=== PATIENT | female | born 1955 | race Caucasian/White ===

== ENCOUNTER 2018-10-02 14:53 | Emergency (ER) | payer SELFPAY ==
[2018-10-02 15:18] LABS: ABSOLUTE BASOPHILS # (AUTO) 0.1 10^3/uL (0.0-0.2); ABSOLUTE EOSINOPHILS # (AUTO) 0.2 10^3/uL (0.0-0.6); ABSOLUTE LYMPHOCYTES (AUTO) 1.4 10^3/uL (0.5-4.7); ABSOLUTE MONOCYTES (AUTO) 0.6 10^3/uL (0.1-1.4); ABSOLUTE NEUT (AUTO) 5.1 10^3/uL (1.7-8.2); EOSINOPHILS % (AUTO) 2.4 % (0-6); HEMOGLOBIN 14.5 g/dL (12.0-15.5); LYMPHOCYTES % (AUTO) 19.1 % (13-45); MEAN CORPUSCULAR HEMOGLOBIN 31.5 pg (27.0-33.4); MEAN CORPUSCULAR HGB CONC 34.5 g/dL (32.0-36.0); MEAN CORPUSCULAR VOLUME 91 fl (80-97); MONOCYTES % (AUTO) 7.8 % (3-13); PLATELET COUNT 257 10^3/uL (150-450); RED BLOOD COUNT 4.61 10^6/uL (3.72-5.28); RED CELL DISTRIBUTION WIDTH 13.1 % (11.5-14.0); SEGMENTED NEUTROPHILS % (AUTO) 69.7 % (42-78); TOTAL CELLS COUNTED % (AUTO) 100 %; WHITE BLOOD COUNT 7.3 10^3/uL (4.0-10.5)
[2018-10-02 15:32] LABS: ALANINE AMINOTRANSFERASE 25 U/L (9-52); ALBUMIN 4.3 g/dL (3.5-5.0); ALKALINE PHOSPHATASE 96 U/L (38-126); ANION GAP 12 (5-19); ASPARTATE AMINO TRANSFERASE 25 U/L (14-36); BILIRUBIN,DIRECT 0.4 mg/dL (0.0-0.4); BLOOD UREA NITROGEN 12 mg/dL (7-20); CALCIUM 10.1 mg/dL (8.4-10.2); CARBON DIOXIDE 25 mmol/L (22-30); CHLORIDE 104 mmol/L (98-107); CREATINE KINASE 43 U/L (30-135); GLUCOSE 115 mg/dL (75-110); SODIUM 141.3 mmol/L (137-145); TOTAL PROTEIN 7.7 g/dL (6.3-8.2)
[2018-10-02 15:35] LABS: POTASSIUM 3.2 mmol/L (3.6-5.0)
[2018-10-02 15:45] LABS: TROPONIN I < 0.012 ng/mL
--- NOTE | 2018-10-02 15:46 | RADIOLOGY REPORT (SQ) ---
EXAM DESCRIPTION: CT HEAD WITHOUT COMPLETED DATE/TIME: 10/02/2018 3:28 pm REASON FOR STUDY: slurred speech COMPARISON: None. TECHNIQUE: Axial images acquired through the brain without intravenous contrast. Images reviewed wi th bone, brain and subdural windows. Images stored on PACS. All CT scanners at this facility use dose modulation, iterative reconstruction, and/or weight based d osing when appropriate to reduce radiation dose to as low as reasonably achievable (ALARA). [facility]: Dose Right [facility]: CareDose [facility]: Dose Right [facility]: Teradose 4D [facility]: Smart Mark[employer] RADIATION DOSE: CT Rad equipment meets quality standard of care and radiation dose reduction techniq ues were employed. CTDIvol: 53.2 mGy. DLP: 1017 mGy-cm.mGy. LIMITATIONS: None. FINDINGS: VENTRICLES: Prominent. CEREBRUM: No mass effect. No hemorrhage. No midline shift. Areas of low density in the white matte r most likely due to chronic micro-vascular ischemic change. No evidence for acute territorial infar ction. CEREBELLUM: No hemorrhage. No alteration of density. No evidence for acute infarction. EXTRAAXIAL SPACES: Age-related involutional change. No fluid collections. ORBITS AND GLOBE: Symmetrical contour of the globes. CALVARIUM: No depressed fracture. PARANASAL SINUSES: No air-fluid level. SOFT TISSUES: No hematoma. IMPRESSION: No acute intracranial hemorrhage or acute territorial infarct. Chronic changes of atrop hy and microvascular ischemia. EVIDENCE OF ACUTE STROKE: NO. TECHNICAL DOCUMENTATION: JOB ID: [id number] [facility] Quality ID # [id number]: Final reports with documentation of one or more dose reduction techniques (e.g., Au tomated exposure control, adjustment of the mA and/or kV according to patient size, use of iterative reconstruction technique) 2010 [employer]- All Rights Reserved Reading location - IP/workstation name: [email or web address]
--- NOTE | 2018-10-02 15:59 | RADIOLOGY REPORT (SQ) ---
EXAM DESCRIPTION: CHEST SINGLE VIEW COMPLETED DATE/TIME: 10/02/2018 3:31 pm REASON FOR STUDY: chest pain COMPARISON: None. NUMBER OF VIEWS: One view. TECHNIQUE: Single frontal radiographic view of the chest acquired. LIMITATIONS: None. FINDINGS: LUNGS AND PLEURA: No opacities, masses or pneumothorax. No pleural effusion. Attenuated bl ood vessels and flattened marcella-diaphragms. MEDIASTINUM AND HILAR STRUCTURES: No masses. Contour normal. HEART AND VASCULAR STRUCTURES: Heart normal in size. Normal vasculature. BONES: No acute findings. HARDWARE: None in the chest. OTHER: No other significant finding. IMPRESSION: COPD. NO ACUTE RADIOGRAPHIC FINDING IN THE CHEST. TECHNICAL DOCUMENTATION: JOB ID: [id number] [employer]- All Rights Reserved Reading location - IP/workstation name: [email or web address]
[2018-10-02] MEDS ORDERED: POTASSIUM CHLORIDE 20 MEQ PACKET PO ONE (17:48)
[2018-10-02 17:58] LABS: APPEARANCE,URINE SLIGHTLY-CLOUDY; BILIRUBIN,URINE NEGATIVE (NEGATIVE); COLOR,URINE AMBER; GLUCOSE, URINE NEGATIVE (NEGATIVE); KETONES,URINE TRACE mg/dL (NEGATIVE); LEUKOCYTE ESTERASE,URINE SMALL (NEGATIVE); NITRITE,URINE NEGATIVE (NEGATIVE); PROTEIN,URINE NEGATIVE (NEGATIVE); URINE SPECIFIC GRAVITY 1.019
--- NOTE | 2018-10-02 18:06 | ER Document Report ---
ED General - General Chief Complaint: Chest Pain Stated Complaint: CHEST PAIN Time Seen by Provider: 10/02/18 15:01 TRAVEL OUTSIDE OF THE [place] IN LAST 30 DAYS: No - HPI Notes: Patient is a 62-year-old female presents to the emergency department for evaluation of chest pain. She states it is and heavy. Does not radiate. She denies any associated symptoms. The only other complaint she has to me initi ally is that she is very tired. She states that the chest pain was keeping her awake so she is very sleepy. She has had some nausea associated with this as well. - Related Data Allergies/Adverse Reactions: acetaminophen [From [place]] Adverse Reaction (Verified 10/02/18 15:15) hydrocodone [From [place]] Adverse Reaction (Verified 10/02/18 15:15) Past Medical History - General Information source: Patient - Social History Smoking Status: Former Smoker Chew tobacco use (# tins/day): No Family History: Other Patient has suicidal ideation: No Patient has homicidal ideation: No - Past Medical History Cardiac Medical History: Reports: Hx Hypertension Renal/ Medical History: Denies: Hx Peritoneal Dialysis Review of Systems - Review of Systems Constitutional: Malaise EENT: No symptoms reported Cardiovascular: Chest pain Respiratory: No symptoms reported Gastrointestinal: Nausea Genitourinary: No symptoms reported Musculoskeletal: No symptoms reported Skin: No symptoms reported Neurological/Psychological: No symptoms reported Physical Exam - Vital signs Vitals: Temp Pulse Resp BP Pulse Ox 97.7 F 90 17 130/83 H 93 10/02/18 14:57 10/02/18 14:57 10/02/18 14:57 10/02/18 14:57 10/02/18 14:57 - Notes Notes: Vital signs reviewed, please refer to chart. Patient is normocephalic, atraumatic. Pupils equal round, reactive to light. Neck is supple without meningismus. Heart is regular rate and rhythm. Lungs are clear to auscultation bilaterally. Abdomen is soft, nontender, normoactive bowel sounds throughout. Extremities without cyanosis, clubbing, edema. Peripheral pulses are equal. Skin is warm and dry. Patient is drowsy but awakes easily to verbal stimuli. GCS 14. Cranial nerves II to XII are grossly intact without focal neurological deficits. Strength is plus 5 out of 5 bilateral upper and lower extremities. Sensation is intact. Intact finger nose finger, rapid altering movements, [id number]. Course - Re-evaluation Re-evalutation: 10/02/18 18:07 Patient presents to the emergency department for evaluation of chest pain. Upon initial evaluation she was extremely drowsy. She had no focal neurological deficits, but was slow to answer questions. Because of this, I did order a CT scan of the head, urinalysis, urine drug screen. She also had an entire cardiac workup. Laboratory investigations, EKG, imaging were all unremarkable. I went back into reassess the patient. At that time she was awake and alert. She had no complaints. She stated only "I am hungry." I did order oral potassium replacement, her magnesium was within normal limits. Patient is permitted to eat, tox screen pending. 10/02/18 18:26 Patient remains completely asymptomatic. Her tox screen is negative. I explained to her that given the duration of her pain and her negative cardiac workup here, I could effectively rule out acute coronary syndrome. Unfortunately I cannot rule out any sort of presence of coronary artery disease, and she does require follow-up with her primary care physician for further testing. She voiced understanding to this and plans to follow-up this week. She is to return to the emergency department with worsening or new concerning symptoms of any sort. - Vital Signs Vital signs: Temp Pulse Resp BP Pulse Ox 97.7 F 90 17 130/83 H 93 10/02/18 14:57 10/02/18 14:57 10/02/18 14:57 10/02/18 14:57 10/02/18 14:57 - Laboratory Result Diagrams: 10/02/18 15:02 10/02/18 15:02 Laboratory results interpreted by me: 10/02/18 10/02/18 15:02 16:07 Potassium 3.2 L Glucose 115 H Urine Ketones TRACE H Urine Urobilinogen 2.0 H Ur Leukocyte Esterase SMALL H - Diagnostic Test Radiology reviewed: Reports reviewed - Head CT and chest x-ray negative for any acute process per radiology - EKG Interpretation by Me Additional EKG results interpreted by me: 10/02/18 18:08 Sinus mechanism with a rate of 91 bpm. Normal axis. Prolonged QT interval. No acute ST-T wave changes concerning for ischemia or infarction. No old studies for comparison. Discharge - Discharge Clinical Impression: Hypokalemia Chest pain Qualifiers: Chest pain type: unspecified Qualified Code(s): R07.9 - Chest pain, unspecified Condition: Stable Disposition: HOME, SELF-CARE Instructions: Chest Pain of Unclear Cause ([facility]) Additional Instructions: Follow-up with your doctor this week. Return to the emergency department with worsening or new concerning symptoms of any sort.
[2018-10-02 18:07] LABS: URINE AMPHETAMINES SCREEN NEGATIVE; URINE BARBITURATES SCREEN NEGATIVE; URINE BENZODIAZEPINES SCREEN NEGATIVE; URINE COCAINE SCREEN NEGATIVE; URINE MARIJUANA (THC) SCREEN NEGATIVE; URINE METHADONE SCREEN NEGATIVE; URINE PHENCYCLIDINE SCREEN NEGATIVE
[2018-10-02 19:11] VITALS: BP 141/69
--- NOTE | 2018-10-02 23:47 | EKG REPORT ---
SEVERITY:- ABNORMAL ECG - SINUS RHYTHM PROBABLE LEFT ATRIAL ABNORMALITY PROBABLE LEFT VENTRICULAR HYPERTROPHY BORDERLINE PROLONGED QT INTERVAL : Confirmed by: Gala Garvey 02-Oct-2018 23:47:23
== END 2018-10-02 19:11 | disposition home or self-care (01) ==
LOC: ER 14:53
DX: R07.9 Chest pain, unspecified (principal); E87.6 Hypokalemia; R11.0 Nausea; Z87.891 Personal history of nicotine dependence
CPT/HCPCS: 93005; 99284; 36415; 82553; 82550; 83735; 85025; 80053; 81001; 84484; 80307; 71045; 70450; 93010; J3490

== ENCOUNTER 2018-10-05 23:13 | Emergency (ER) | payer SELFPAY ==
--- NOTE | 2018-10-06 01:15 | ER Document Report ---
ED Medical Screen (RME) - General Chief Complaint: Shortness Of Breath Stated Complaint: SHORTNESS OF BREATH Time Seen by Provider: 10/06/18 01:04 Mode of Arrival: Wheelchair Information source: Patient Notes: Patient is a frail-appearing 62-year-old female comes to the emergency room again for complaint of difficulty breathing, breathing getting shallow, heart palpitations, breathing shortness of breath coughing but nonproductive. Patient was just seen here on 10/02/2018 admitted with a diagnosis of hypertension urgency. She was discharged on the . Patient continues to smoke at least a pack of cigarettes a day. She denies any heart problems in the past. She denies having any chest pain. TRAVEL OUTSIDE OF THE [place] IN LAST 30 DAYS: No - HPI Onset: This morning Onset/Duration: Gradual, Persistent, Worse Quality of pain: Sharp, Stabbing, Throbbing Pain Level: 3 Associated Symptoms: Cough (nonproductive), Nausea, Shortness of breath. denies: Fever Exacerbated by: Denies Relieved by: Denies Similar symptoms previously: Yes Recently seen / treated by doctor: Yes - Related Data Smoking: Greater than 1 pack/day Frequency of alcohol use: Rare Drug Abuse: None Allergies/Adverse Reactions: acetaminophen [From [place]] Adverse Reaction (Verified 10/02/18 15:15) hydrocodone [From [place]] Adverse Reaction (Verified 10/02/18 15:15) Past Medical History - General Information source: Patient - Social History Cigarette use (# per day): Yes - 1 pack/day Frequency of alcohol use: Rare Drug Abuse: None Lives with: Alone Family history: Reviewed & Not Pertinent - Past Medical History Cardiac Medical History: Reports: Hx Hypertension Renal/ Medical History: Denies: Hx Peritoneal Dialysis Psychiatric Medical History: Denies: Hx Depression Review of Systems - Review of Systems Constitutional: No symptoms reported EENT: No symptoms reported Cardiovascular: Lightheaded Respiratory: See HPI, Short of breath Gastrointestinal: No symptoms reported Genitourinary: No symptoms reported Female Genitourinary: No symptoms reported Musculoskeletal: No symptoms reported Skin: No symptoms reported Hematologic/Lymphatic: No symptoms reported Neurological/Psychological: No symptoms reported -: Yes All other systems reviewed and negative Physical Exam - Vital signs Notes: Vital signs were not captured but on the patient's triage note she had a temp of 98.1, pulse of 83, respiratory rate of 16, O2 saturation 95% on room air, and blood pressure 137/70. - Notes Notes: PHYSICAL EXAMINATION: GENERAL: Patient is a frail-appearing 62-year-old female who is in no apparent distress on for exam today however does appear a little uncomfortable. HEAD: Head is normocephalic atraumatic EYES: Pupils equal round and reactive to light, extraocular movements intact, conjunctiva are normal. ENT: Examination head and upper airway showed nasal mucosa to be mildly erythematous and edematous with some rhinorrhea noted. Lateral nasal congestion is also noted. Bilateral TMs bulging slightly but no air-fluid levels are noted. Posterior pharynx shows some mild erythema but drainage is minimal no color to it. Airway is patent. NECK: Normal range of motion, supple without lymphadenopathy LUNGS: Auscultation patient's lung goel show she has bilateral breath sounds although patient is not very cooperative when taking a deep breath so it is hard to hear and distinguish any abnormal breath sounds. HEART: Regular rate and rhythm without murmurs ABDOMEN: Soft, nontender, nondistended abdomen. No guarding, no rebound. No masses appreciated. Female : deferred Musculoskeletal: Normal range of motion, no pitting or edema. No cyanosis. NEUROLOGICAL: Normal speech, normal gait. Normal sensory, motor exams PSYCH: Normal mood, normal affect. SKIN: Warm, Dry, normal turgor, no rashes or lesions noted. Course - Re-evaluation Re-evalutation: 10/06/18 01:15 I have greeted and performed a rapid initial assessment of this patient. A comprehensive ED assessment and evaluation of the patient, analysis of test results and completion of the medical decision making process will be conducted by additional ED providers. Dictation of this chart was performed using voice recognition software; therefore, there may be some unintended grammatical errors.
[2018-10-06 02:17] LABS: ABSOLUTE BASOPHILS # (AUTO) 0.1 10^3/uL (0.0-0.2); ABSOLUTE EOSINOPHILS # (AUTO) 0.3 10^3/uL (0.0-0.6); ABSOLUTE LYMPHOCYTES (AUTO) 2.2 10^3/uL (0.5-4.7); ABSOLUTE MONOCYTES (AUTO) 0.7 10^3/uL (0.1-1.4); ABSOLUTE NEUT (AUTO) 4.6 10^3/uL (1.7-8.2); BASOPHILS % (AUTO) 1.1 % (0-2); EOSINOPHILS % (AUTO) 3.6 % (0-6); HEMATOCRIT 40.9 % (36.0-47.0); LYMPHOCYTES % (AUTO) 27.6 % (13-45); MEAN CORPUSCULAR HEMOGLOBIN 31.5 pg (27.0-33.4); MEAN CORPUSCULAR HGB CONC 34.2 g/dL (32.0-36.0); MEAN CORPUSCULAR VOLUME 92 fl (80-97); MONOCYTES % (AUTO) 9.3 % (3-13); PLATELET COUNT 225 10^3/uL (150-450); RED BLOOD COUNT 4.44 10^6/uL (3.72-5.28); RED CELL DISTRIBUTION WIDTH 12.7 % (11.5-14.0); SEGMENTED NEUTROPHILS % (AUTO) 58.4 % (42-78); TOTAL CELLS COUNTED % (AUTO) 100 %; WHITE BLOOD COUNT 7.8 10^3/uL (4.0-10.5)
[2018-10-06 02:21] LABS: INTERNATIONAL RATION (INR) 1.04; PROTHROMBIN TIME 14.1 SEC (11.4-15.4)
[2018-10-06 02:27] LABS: ALANINE AMINOTRANSFERASE 14 U/L (9-52); ALKALINE PHOSPHATASE 88 U/L (38-126); ANION GAP 11 (5-19); ASPARTATE AMINO TRANSFERASE 17 U/L (14-36); BILIRUBIN,DIRECT 0.3 mg/dL (0.0-0.4); BILIRUBIN,TOTAL 0.5 mg/dL (0.2-1.3); BLOOD UREA NITROGEN 7 mg/dL (7-20); CALCIUM 9.5 mg/dL (8.4-10.2); CARBON DIOXIDE 27 mmol/L (22-30); CHLORIDE 103 mmol/L (98-107); CREATINE KINASE 37 U/L (30-135); GLUCOSE 80 mg/dL (75-110); POTASSIUM 3.3 mmol/L (3.6-5.0); SODIUM 140.7 mmol/L (137-145); TOTAL PROTEIN 7.3 g/dL (6.3-8.2)
[2018-10-06 02:42] LABS: CREATINE KINASE MB 0.63 ng/mL (<4.55)
[2018-10-06 02:43] LABS: TROPONIN I < 0.012 ng/mL
[2018-10-06] MEDS ORDERED: IPRATROPIUM/ALBUTEROL 0.5-2.5 MG/3 ML AMPUL NEB ONE (02:45)
--- NOTE | 2018-10-06 02:45 | ER Document Report ---
ED Respiratory Problem - General Chief Complaint: Shortness Of Breath Stated Complaint: SHORTNESS OF BREATH Time Seen by Provider: 10/06/18 01:04 Mode of Arrival: Wheelchair Information source: Patient Notes: Patient is a frail-appearing 62-year-old female comes to emergency room with complaint of difficulty breathing. Patient states that over the past couple days her breathing is gotten shallow she has had increasing shortness of breath she has had some palpitations but she has no history of heart problems. Patient was seen here on the of this month was admitted overnight through the and just discharged out. She was here for hypertensive emergency. She states she has not felt good even before that point. She came in by EMS and was put on the triage room. Patient continues to smoke a pack of cigarettes a day. She denies any other medical problems at this time. She has no heart condition she has no abdominal pain no nausea or vomiting no cardiac chest pain. Just more shortness of breath with palpitations TRAVEL OUTSIDE OF THE [place] IN LAST 30 DAYS: No - HPI Patient complains to provider of: Cough, Hurts to breath, Short of breath Onset: Yesterday Duration: Continuous, Worse/persistent Initiating Event: Allergy, Exertion Quality of pain: No pain Severity: None Pain Level: Denies Context: Hx CHF, Smoker. denies: Recent cardiac event, Recent foreign travel, Recent immobilization, Recent surgery Short of Breath: Moderate Chest pain/discomfort: Constant, Intermittent, Tightness, Worse with deep breaths Cough: Nonproductive Sputum amount: None Associated symptoms: None - Related Data Allergies/Adverse Reactions: acetaminophen [From [place]] Adverse Reaction (Verified 10/02/18 15:15) hydrocodone [From [place]] Adverse Reaction (Verified 10/02/18 15:15) Past Medical History - General Information source: Patient - Social History Smoking Status: Unknown if Ever Smoked Cigarette use (# per day): Yes - 1 pack/day Chew tobacco use (# tins/day): No Smoking Education Provided: No Frequency of alcohol use: Rare Drug Abuse: None Lives with: Alone Family History: CAD, COPD - Past Medical History Cardiac Medical History: Reports: Hx Hypertension Renal/ Medical History: Denies: Hx Peritoneal Dialysis Psychiatric Medical History: Denies: Hx Depression Review of Systems - Review of Systems Constitutional: No symptoms reported EENT: No symptoms reported Cardiovascular: No symptoms reported Respiratory: See HPI, Cough, Short of breath, Sputum Gastrointestinal: No symptoms reported Genitourinary: No symptoms reported Female Genitourinary: No symptoms reported Musculoskeletal: No symptoms reported Skin: No symptoms reported Hematologic/Lymphatic: No symptoms reported Neurological/Psychological: No symptoms reported -: Yes All other systems reviewed and negative Physical Exam - Vital signs Vitals: BP Pulse Ox 172/58 H 98 10/06/18 01:57 10/06/18 01:57 Interpretation: Hypertensive - Patient's vital signs were not captured however on her triage note time of 2340 patient's temp was 98.1 her respiratory rate was 16 the pulse rate was 83 her blood pressure 137/70 and her O2 sat was 95%. - Notes Notes: PHYSICAL EXAMINATION: GENERAL: Patient is a frail-appearing 62-year-old female who is in no apparent distress on physical exam today. HEAD: Atraumatic, normocephalic. EYES: Pupils equal round and reactive to light, extraocular movements intact, conjunctiva are normal. ENT: Examination head and upper airway showed nasal mucosa to be mildly erythematous and edematous with some rhinorrhea noted. Bilateral nasal congestion is also noted. Bilateral TMs are bulging with no air-fluid levels. Posterior pharynx shows some mild erythema with no exudate noted and uvula midli ne with no encroachment. There was patent. NECK: Normal range of motion, supple without lymphadenopathy LUNGS: Patient displays bilateral breath sounds breath sounds are decreased throughout the patient's not making very determine inspiratory effort. HEART: Regular rate and rhythm without murmurs ABDOMEN: Soft, nontender, nondistended abdomen. No guarding, no rebound. No masses appreciated. Female : deferred Musculoskeletal: Normal range of motion, no pitting or edema. No cyanosis. NEUROLOGICAL: Normal speech, normal gait. Normal sensory, motor exams PSYCH: Normal mood, normal affect. SKIN: Warm, Dry, normal turgor, no rashes or lesions noted. Course - Re-evaluation Re-evalutation: 10/06/18 06:48 Patient's course of stay in the hospital emergency room is been very uneventful. She had multiple somatic complaints on communion and multiple problems. Her chest x-ray EKG and all her labs were normal. Patient was actually disappointed that I was not going to get her admitted to the hospital. She just left here on the 15 and she really wanted to come back again. I have looked for ways to do that but she is in wonderful shape her blood pressure is stabilized all of her labs have become normalized her potassium is still slightly off at 3.3 so we will - Vital Signs Vital signs: Temp Pulse Resp BP Pulse Ox 98 F 147/73 H 95 10/06/18 03:01 10/06/18 07:01 10/06/18 07:01 - Laboratory Result Diagrams: 10/06/18 02:01 10/06/18 02:01 Laboratory results interpreted by me: 10/06/18 02:01 Potassium 3.3 L Discharge - Discharge Clinical Impression: Chronic shortness of breath Condition: Good Disposition: HOME, SELF-CARE Instructions: Hypokalemia ([facility]) Additional Instructions: Home and rest. As we discussed you need to think more about your diet and eat more nutritious foods. Also you need to add at least a banana a day to your diet so that your potassium stays normalized. I am going to put you on some potassium for a few days 1 pill every other day for 5 days then have you follow- up with your primary to recheck your potassium level. Should you have any concerns or problems return to ER for recheck. Prescriptions: Potassium Chloride [Klor-Con M20] 20 meq PO DAILY #7 [email or web address] Forms: Elevated Blood Pressure, Smoking Cessation Education
[2018-10-06] MEDS ORDERED: METHYLPREDNISOLONE INJ 125 MG/2 ML SDV IV ONE (02:46)
--- NOTE | 2018-10-06 06:00 | RADIOLOGY REPORT (SQ) ---
Chest 2 view on 10/06/2018 at 5:35 AM CLINICAL INDICATION: Shortness of breath COMPARISON: 10/02/2018 FINDINGS: The lungs are clear. Mild vascular calcification is noted in the aorta. Cardiac, hilar and mediastinal contours are within normal limits. Pulmonary vascularity is within normal limits. No acute bony abnormality is noted. IMPRESSION: No active disease.
[2018-10-06] MEDS ORDERED: POTASSIUM CHLORIDE 10 MEQ CAPSULE.ER PO ONE (06:52)
[2018-10-06 07:02] VITALS: BP 147/73
--- NOTE | 2018-10-06 15:35 | EKG REPORT ---
SEVERITY:- BORDERLINE ECG - SINUS RHYTHM PROBABLE LEFT ATRIAL ABNORMALITY BORDERLINE T WAVE ABNORMALITIES : Confirmed by: Rosy Daniels MD 06-Oct-2018 15:35:29
== END 2018-10-06 07:10 | disposition home or self-care (01) ==
LOC: ER 23:13
DX: R06.02 Shortness of breath (principal); F17.210 Nicotine dependence, cigarettes, uncomplicated; Z88.6 Allergy status to analgesic agent
CPT/HCPCS: 93005; 94640; 99285; 96374; 36415; 82553; 82550; 85025; 85610; 80053; 84484; 71046; 93010; J2930; J7620

== ENCOUNTER 2018-10-13 00:52 | Inpatient (IN) | payer SELFPAY ==
[2018-10-13 01:46] LABS: ABSOLUTE BASOPHILS # (AUTO) 0.1 10^3/uL (0.0-0.2); ABSOLUTE EOSINOPHILS # (AUTO) 0.1 10^3/uL (0.0-0.6); ABSOLUTE LYMPHOCYTES (AUTO) 1.8 10^3/uL (0.5-4.7); ABSOLUTE NEUT (AUTO) 10.3 10^3/uL (1.7-8.2); BASOPHILS % (AUTO) 0.7 % (0-2); EOSINOPHILS % (AUTO) 0.5 % (0-6); HEMATOCRIT 43.7 % (36.0-47.0); HEMOGLOBIN 14.7 g/dL (12.0-15.5); LYMPHOCYTES % (AUTO) 13.2 % (13-45); MEAN CORPUSCULAR HEMOGLOBIN 31.1 pg (27.0-33.4); MEAN CORPUSCULAR HGB CONC 33.7 g/dL (32.0-36.0); MEAN CORPUSCULAR VOLUME 92 fl (80-97); MONOCYTES % (AUTO) 7.9 % (3-13); PLATELET COUNT 281 10^3/uL (150-450); RED BLOOD COUNT 4.74 10^6/uL (3.72-5.28); RED CELL DISTRIBUTION WIDTH 12.9 % (11.5-14.0); SEGMENTED NEUTROPHILS % (AUTO) 77.7 % (42-78); TOTAL CELLS COUNTED % (AUTO) 100 %; WHITE BLOOD COUNT 13.3 10^3/uL (4.0-10.5)
--- NOTE | 2018-10-13 01:47 | RADIOLOGY REPORT (SQ) ---
EXAM DESCRIPTION: XR CHEST 1 VIEW COMPLETED DATE/TME: 10/13/2018 01:17 CLINICAL HISTORY: 63 years, Female, altered mental status COMPARISON: 10/06/2018 NUMBER OF VIEWS: One TECHNIQUE: AP view of the chest LIMITATIONS: None. FINDINGS: Lungs are clear. The heart is normal in size. There is no pneumothorax or pleural effusion. There is no acute fracture. There is old healed fracture involving the distal left clavicle IMPRESSION: No acute cardiopulmonary abnormality copyright 2010 [employer]- All Rights Reserved
--- NOTE | 2018-10-13 01:47 | ER Document Report ---
ED General - General Stated Complaint: CONFUSED Time Seen by Provider: 10/13/18 01:12 Notes: Patient is a 63-year-old female presents with complaints of being found poorly responsive and confused. She was apparently found walking around and not responding appropriately. Paramedics says that she can barely open her eyes and will not communicate. She is very weak. No previous history of this in the past that we are aware of. No previous history of this in her records. Patient is unable to answer questions at this time. TRAVEL OUTSIDE OF THE [place] IN LAST 30 DAYS: No - Related Data Allergies/Adverse Reactions: acetaminophen [From [place]] Adverse Reaction (Verified 10/02/18 15:15) hydrocodone [From [facility]] Adverse Reaction (Verified 10/02/18 15:15) Past Medical History - Social History Smoking Status: Current Every Day Smoker Frequency of alcohol use: None Drug Abuse: None Family History: CAD, COPD - Past Medical History Cardiac Medical History: Reports: Hx Hypertension Renal/ Medical History: Denies: Hx Peritoneal Dialysis Psychiatric Medical History: Denies: Hx Depression Review of Systems - Review of Systems -: Yes ROS unobtainable due to patient's medical condition - Patient is poorly responsive Physical Exam - Vital signs Vitals: Temp 94.4 F L 10/13/18 01:10 - Notes Notes: General Appearance: Very somnolent. Does not communicate. Weak appearing. Vitals: reviewed, See vital signs table. Head: no swelling or tenderness to the head Eyes: PERRL, EOMI, Conjuctiva clear Mouth: No decreasd moisture Throat: No tonsillar inflammation, No airway obstruction, No lymphadenopathy Neck: Supple, no neck tenderness, No thyromegaly Lungs: No wheezing, No rales, No rhonci, No accessory muscle use, good air exchange bilaterally. Heart: Normal rate, Regular rythm, No murmur, no rub Abdomen: Normal BS, soft, No rigidity, No abdominal tenderness, No guarding, no rebound, no abdominal masses, no organomegaly Extremities: good pulses in all extremities, no swelling or tenderness in the extremities, no edema. Skin: warm, dry, appropriate color, no rash Neuro: Patient laying in bed. Patient eyelids are very droopy. She will slowly respond to a few commands such as "open your mouth". She will attempt to open her eyes but can only partially open them. She is very weak appearing. She does not currently move her arms or legs. Course - Re-evaluation Re-evalutation: 10/13/18 03:19 Patient is now more awake. She is able to answer some questions. She still fatigued appearing and obviously not back to her normal baseline. Patient says she does not take any pain medicines are sedating type medications. She says she does not remember much from tonight. 10/13/18 04:43 Due to the unclear etiology behind why the patient was severely hypothermic and poorly responsive they is appropriate to admit the patient for observation. Patient is more awake now that she is no longer hypothermic however she still obviously is not back to her baseline and that she still very weak appearing and herself says that she feels very groggy. I spoke with Dr. Hoang, the hospitalist, agrees to evaluate the patient for admission. Dictation of this chart was performed using voice recognition software; therefore, there may be some unintended grammatical errors. - Vital Signs Vital signs: Temp Pulse Resp BP Pulse Ox 98.3 F 16 113/70 94 10/13/18 04:01 10/13/18 04:01 10/13/18 04:00 10/13/18 04:01 - Laboratory Result Diagrams: 10/13/18 01:10 10/13/18 01:10 Laboratory results interpreted by me: 10/13/18 10/13/18 10/13/18 01:10 01:10 02:17 WBC 13.3 H Absolute Neutrophils 10.3 H Carboxyhemoglobin Potassium 3.5 L Ammonia Urine Urobilinogen 4.0 H Salicylates < 1.0 L Acetaminophen < 10 L 10/13/18 10/13/18 03:08 03:08 WBC Absolute Neutrophils Carboxyhemoglobin 2.5 H Potassium Ammonia < 8.7 L Urine Urobilinogen Salicylates Acetaminophen - EKG Interpretation by Me Additional EKG results interpreted by me: 10/13/18 01:46 EKG is reviewed and interpreted by me. EKG shows sinus rhythm with a rate of [address] segment elevation or depression. No ischemic T wave inversions. MS interval, QRS duration, QT intervals are within normal range. Old EKG for comparison is from October 05, 2018. Discharge - Discharge Clinical Impression: Altered mental status Qualifiers: Altered mental status type: unspecified Qualified Code(s): R41.82 - Altered mental status, unspecified Hypothermia Qualifiers: Encounter type: initial encounter Qualified Code(s): T68.XXXA - Hypothermia, initial encounter Condition: Stable Disposition: ADMITTED OBSERVATION Admitting Provider: Viktor (Hospitalist) Unit Admitted: Telemetry
--- NOTE | 2018-10-13 01:49 | RADIOLOGY REPORT (SQ) ---
EXAM DESCRIPTION: CT HEAD WITHOUT IV CONTRAST COMPLETED DATE/TME: 10/13/2018 01:16 CLINICAL HISTORY: 63 years, Female, altered mental status COMPARISON: 10/02/2018 TECHNIQUE: Axial CT images of the brain were obtained without contrast. Sagittal and coronal reformats were performed. DL [id number] Images stored on PACS. All CT scanners at this facility use dose modulation, iterative reconstruction, and/or weight based dosing when appropriate to reduce radiation dose to as low as reasonably achievable (ALARA). [facility]: Dose Right [facility]: CareDose [facility]: Dose Right [facility]: Teradose 4D [facility]: [employer] LIMITATIONS: None. FINDINGS: There is no cortical infarct, hemorrhage, mass, edema, hydrocephalus, or extra-axial fluid collection. The rajput-white matter differentiation is preserved. There is mild diffuse cerebral atrophy with mild periventricular and deep white matter chronic microvascular changes. The paranasal sinuses and mastoid air cells are clear. There is no acute fracture. IMPRESSION: No acute intracranial abnormality. TECHNICAL DOCUMENTATION: Quality ID # [id number]: Final reports with documentation of one or more dose reduction techniques (e.g., Automated exposure control, adjustment of the mA and/or kV according to patient size, use of iterative reconstruction technique) copyright 2010 [employer]- All Rights Reserved
[2018-10-13 02:08] LABS: ALANINE AMINOTRANSFERASE 19 U/L (9-52); ALBUMIN 4.3 g/dL (3.5-5.0); ALKALINE PHOSPHATASE 93 U/L (38-126); ANION GAP 10 (5-19); ASPARTATE AMINO TRANSFERASE 28 U/L (14-36); BILIRUBIN,DIRECT 0.3 mg/dL (0.0-0.4); BILIRUBIN,TOTAL 0.6 mg/dL (0.2-1.3); BLOOD UREA NITROGEN 14 mg/dL (7-20); CARBON DIOXIDE 26 mmol/L (22-30); CHLORIDE 107 mmol/L (98-107); GLUCOSE 98 mg/dL (75-110); POTASSIUM 3.5 mmol/L (3.6-5.0); SODIUM 142.6 mmol/L (137-145); TOTAL PROTEIN 7.8 g/dL (6.3-8.2)
[2018-10-13 02:09] LABS: ACETAMINOPHEN < 10 ug/mL (10-30); ALCOHOL < 10 mg/dL (NONE DETECTED); SALICYLATE < 1.0 mg/dL (2.0-20.0)
[2018-10-13 02:22] LABS: FREE T3 3.5 pg/mL (2.77-5.27)
[2018-10-13 02:36] LABS: THYROID STIMULATING HORMONE 1.45 uIU/mL (0.47-4.68)
[2018-10-13 02:54] LABS: URINE AMPHETAMINES SCREEN NEGATIVE; URINE BARBITURATES SCREEN NEGATIVE; URINE BENZODIAZEPINES SCREEN NEGATIVE; URINE COCAINE SCREEN NEGATIVE; URINE MARIJUANA (THC) SCREEN NEGATIVE; URINE METHADONE SCREEN NEGATIVE; URINE PHENCYCLIDINE SCREEN NEGATIVE
[2018-10-13 02:56] LABS: APPEARANCE,URINE SLIGHTLY-CLOUDY; BILIRUBIN,URINE NEGATIVE (NEGATIVE); CALCIUM OXALATE CRYSTALS,URINE MODERATE /HPF; COLOR,URINE YELLOW; GLUCOSE, URINE NEGATIVE (NEGATIVE); KETONES,URINE NEGATIVE (NEGATIVE); LEUKOCYTE ESTERASE,URINE NEGATIVE (NEGATIVE); NITRITE,URINE NEGATIVE (NEGATIVE); PROTEIN,URINE NEGATIVE (NEGATIVE); URINE SPECIFIC GRAVITY 1.014
[2018-10-13 03:10] LABS: FREE T4 (FREE THYROXINE) 1.09 ng/dL (0.78-2.19)
[2018-10-13 03:19] LABS: VENOUS BLOOD BASE EXCESS 0.5 mmol/L; VENOUS BLOOD HCO3 25.2 mmol/L (20-32); VENOUS BLOOD PCO2 40.9 mmHg (35-63); VENOUS BLOOD PH 7.41 (7.30-7.42)
[2018-10-13] MEDS ORDERED: IPRATROPIUM/ALBUTEROL 0.5-2.5 MG/3 ML AMPUL NEB PRN (04:44)
[2018-10-13] MEDS ORDERED: MAG HYDROX/AL HYDROX/SIMETH SUSP 30 ML UDCUP PO PRN (04:44)
[2018-10-13] MEDS ORDERED: HYDROCORTISONE SOD SUCCINATE INJ/PF 100 MG/2 ML SDV IV ONE (05:00)
[2018-10-13] MEDS: HEPARIN SOD (PORCINE) 5,000 UNIT/ML 1 ML SYRINGE SUBCUT SCH ×3 (05:44→21:35)
--- NOTE | 2018-10-13 06:25 | PDOC H&P ---
History of Present Illness Admission Date/PCP: 10/13/18 04:51 Patient complains of: Chest and abdominal pain History of Present Illness: JACOBY HERNANDEZ is a 63 year old female with a past medical history of hypertension, dyslipidemia and tobacco with complaints of recurrent chest and epigastric pain associated with weight loss. Patient was observed 10 days ago f or chest pain with a negative cardiac work-up she was discharged however returned to the emergency room after found disheveled, confused and hypothermic. In the emergency room she is found to have a temperature of 94.4 and placed on bear hugger with a return of her mental status to baseline. She complains of epigastric pain, early satiety and weight loss, CBC and chemistry are unremarkable she is referred to the hospitalist for admission. Past Medical History Cardiac Medical History: Reports: Hypertension Psychiatric Medical History: Denies: Depression Social History Information Source: Patient Lives with: Friend Smoking Status: Current Every Day Smoker Frequency of Alcohol Use: None Hx Recreational Drug Use: No Drugs: None Hx Prescription Drug Abuse: No - Advance Directive Resuscitation Status: Full Code Family History Family History: CAD, COPD Parental Family History Reviewed: Yes Children Family History Reviewed: Yes Sibling(s) Family History Reviewed.: Yes Medication/Allergy Home Medications: Aspirin [Ecotrin 81 mg EC Tablet] 81 mg PO DAILY tabec 10/04/18 Lisinopril [Prinivil 5 mg Tablet] 5 mg PO DAILY #30 tablet 10/04/18 Potassium Chloride [Klor-Con M20] 20 meq PO DAILY #7 tab.er.prt 10/06/18 Allergies/Adverse Reactions: acetaminophen [From [place]] Adverse Reaction (Verified 10/02/18 15:15) hydrocodone [From [place]] Adverse Reaction (Verified 10/02/18 15:15) Review of Systems Constitutional: PRESENT: as per HPI, fatigue, headache(s), weakness, weight loss Eyes: ABSENT: visual disturbances Ears: ABSENT: hearing changes Cardiovascular: PRESENT: as per HPI, chest pain. ABSENT: dyspnea on exertion, edema, orthropnea, palpitations Respiratory: ABSENT: dyspnea, sputum Gastrointestinal: PRESENT: as per HPI, abdominal pain. ABSENT: constipation, diarrhea, dysphagia Genitourinary: ABSENT: dysuria, hematuria Musculoskeletal: ABSENT: joint swelling Integumentary: ABSENT: rash, wounds Neurological: ABSENT: abnormal gait, abnormal speech, confusion, dizziness, focal weakness, syncope Psychiatric: ABSENT: anxiety, depression, homidical ideation, suicidal ideation Endocrine: ABSENT: cold intolerance, heat intolerance, polydipsia, polyuria Hematologic/Lymphatic: ABSENT: easy bleeding, easy bruising Physical Exam Vital Signs: Temp Pulse Resp BP Pulse Ox 98.4 F 28 H 106/62 95 10/13/18 05:01 10/13/18 05:01 10/13/18 05:00 10/13/18 05:01 Intake & Output 10/11/18 10/12/18 10/13/18 11:59 11:59 11:59 Weight 44.3 kg General appearance: PRESENT: cooperative, disheveled, mild distress, thin, well-developed, well-nourished Head exam: PRESENT: atraumatic, normocephalic Eye exam: PRESENT: conjunctiva pink, EOMI, PERRLA. ABSENT: scleral icterus Ear exam: PRESENT: normal external ear exam Mouth exam: PRESENT: moist, tongue midline Neck exam: ABSENT: carotid bruit, JVD, lymphadenopathy, thyromegaly Respiratory exam: PRESENT: clear to auscultation opal, prolonged expiratory phas, symmetrical. ABSENT: rales, rhonchi, wheezes Cardiovascular exam: PRESENT: RRR, systolic murmur. ABSENT: diastolic murmur, rubs Pulses: PRESENT: normal dorsalis pedis pul Vascular exam: PRESENT: normal capillary refill GI/Abdominal exam: PRESENT: normal bowel sounds, soft. ABSENT: distended, guarding, mass, organolmegaly, rebound, tenderness Rectal exam: PRESENT: deferred Extremities exam: PRESENT: full ROM. ABSENT: calf tenderness, clubbing, pedal edema Neurological exam: PRESENT: alert, awake, oriented to person, oriented to place, oriented to time, oriented to situation, CN II-XII grossly intact. ABSENT: motor sensory deficit Psychiatric exam: PRESENT: appropriate affect, normal mood. ABSENT: homicidal ideation, suicidal ideation Skin exam: PRESENT: dry, intact, warm. ABSENT: cyanosis, rash Results Laboratory Results: 10/13/18 01:10 10/13/18 01:10 10/13/18 10/13/18 10/13/18 01:10 01:10 01:10 WBC 13.3 H RBC 4.74 Hgb 14.7 Hct 43.7 MCV 92 MCH 31.1 MCHC 33.7 RDW 12.9 Plt Count 281 Seg Neutrophils % 77.7 Lymphocytes % 13.2 Monocytes % 7.9 Eosinophils % 0.5 Basophils % 0.7 Absolute Neutrophils 10.3 H Absolute Lymphocytes 1.8 Absolute Monocytes 1.0 Absolute Eosinophils 0.1 Absolute Basophils 0.1 VBG pH VBG pCO2 VBG HCO3 VBG Base Excess Carboxyhemoglobin Sodium 142.6 Potassium 3.5 L Chloride 107 Carbon Dioxide 26 Anion Gap 10 BUN 14 Creatinine 0.55 Est GFR ( Amer) > 60 Est GFR (Non-Af Amer) > 60 Glucose 98 Calcium 10.0 Total Bilirubin 0.6 AST 28 ALT 19 Alkaline Phosphatase 93 Ammonia Cancelled Total Protein 7.8 Albumin 4.3 TSH Free T4 Free T3 pg/mL Urine Color Urine Appearance Urine pH Ur Specific [place] Urine Protein Urine Glucose (UA) Urine Ketones Urine Blood Urine Nitrite Ur Leukocyte Esterase Urine WBC (Auto) 10/13/18 10/13/18 10/13/18 01:10 01:10 02:17 WBC RBC Hgb Hct MCV MCH MCHC RDW Plt Count Seg Neutrophils % Lymphocytes % Monocytes % Eosinophils % Basophils % Absolute Neutrophils Absolute Lymphocytes Absolute Monocytes Absolute Eosinophils Absolute Basophils VBG pH Cancelled VBG pCO2 Cancelled VBG HCO3 Cancelled VBG Base Excess Cancelled Carboxyhemoglobin Sodium Potassium Chloride Carbon Dioxide Anion Gap BUN Creatinine Est GFR ( Amer) Est GFR (Non-Af Amer) Glucose Calcium Total Bilirubin AST ALT Alkaline Phosphatase Ammonia Total Protein Albumin TSH 1.45 Free T4 1.09 Free T3 pg/mL 3.50 Urine Color YELLOW Urine Appearance SLIGHTLY-CLOUDY Urine pH 7.0 Ur Specific [place] 1.014 Urine Protein NEGATIVE Urine Glucose (UA) NEGATIVE Urine Ketones NEGATIVE Urine Blood NEGATIVE Urine Nitrite NEGATIVE Ur Leukocyte Esterase NEGATIVE Urine WBC (Auto) 2 10/13/18 10/13/18 10/13/18 03:08 03:08 03:08 WBC RBC Hgb Hct MCV MCH MCHC RDW Plt Count Seg Neutrophils % Lymphocytes % Monocytes % Eosinophils % Basophils % Absolute Neutrophils Absolute Lymphocytes Absolute Monocytes Absolute Eosinophils Absolute Basophils VBG pH 7.41 VBG pCO2 40.9 VBG HCO3 25.2 VBG Base Excess 0.5 Carboxyhemoglobin 2.5 H Sodium Potassium Chloride Carbon Dioxide Anion Gap BUN Creatinine Est GFR ( Amer) Est GFR (Non-Af Amer) Glucose Calcium Total Bilirubin AST ALT Alkaline Phosphatase Ammonia < 8.7 L Total Protein Albumin TSH Free T4 Free T3 pg/mL Urine Color Urine Appearance Urine pH Ur Specific [place] Urine Protein Urine Glucose (UA) Urine Ketones Urine Blood Urine Nitrite Ur Leukocyte Esterase Urine WBC (Auto) Impressions: Head CT 10/13/18 01:16 IMPRESSION: No acute intracranial abnormality. TECHNICAL DOCUMENTATION: Quality ID # [id number]: Final reports with documentation of one or more dose reduction techniques (e.g., Automated exposure control, adjustment of the mA and/or kV according to patient size, use of iterative reconstruction technique) copyright 2010 [employer]- All Rights Reserved Chest X-Ray 10/13/18 01:17 IMPRESSION: No acute cardiopulmonary abnormality copyright 2010 [employer]- All Rights Reserved Assessment and Plan - Diagnosis (1) Weight loss Is this a current diagnosis for this admission?: Yes Plan: [id number] history of tobacco, concern for occult malignancy. Follow-up CT chest abdomen pelvis. (2) Altered mental status Qualifiers: Altered mental status type: unspecified Qualified Code(s): R41.82 - Altered mental status, unspecified Is this a current diagnosis for this admission?: Yes Plan: Unclear cause, supportive measures, follow-up urine drug screen, TSH, random cortisol. (3) Hypothermia Qualifiers: Encounter type: initial encounter Qualified Code(s): T68.XXXA - Hypothermia, initial encounter Is this a current diagnosis for this admission?: Yes Plan: Unclear cause, follow-up UA, TSH, cortisol. Bear hugger's and supportive measures. (4) Tobacco abuse Is this a current diagnosis for this admission?: Yes Plan: Tobacco Dependence patient received tobacco cessation counseling and offered nicotine replacement options (5) Epigastric pain Is this a current diagnosis for this admission?: Yes Plan: Follow-up abdominal CT, Carafate q. AC - Time Time Spent with patient: 35 or more minutes - Inpatient Certification Medical Necessity: Need Close Monitoring Due to Risk of Patient Decompensation
[2018-10-13] MEDS ORDERED: ASPIRIN 325 MG TABLET PO ONE (08:00)
[2018-10-13] MEDS: SUCRALFATE 1 GM TABLET PO SCH ×3 (08:26→18:16)
--- NOTE | 2018-10-13 09:00 | EKG REPORT ---
SEVERITY:- ABNORMAL ECG - SINUS RHYTHM PROBABLE LEFT ATRIAL ABNORMALITY PROBABLE LEFT VENTRICULAR HYPERTROPHY BORDERLINE T ABNORMALITIES, INFERIOR LEADS : Confirmed by: Antonio Willams MD 13-Oct-2018 08:58:43
[2018-10-13] MEDS: LISINOPRIL 5 MG TABLET PO SCH (10:49)
[2018-10-13] MEDS: POTASSIUM CHLORIDE 10 MEQ CAPSULE.ER PO SCH (10:49)
--- NOTE | 2018-10-13 11:37 | RADIOLOGY REPORT (SQ) ---
EXAM DESCRIPTION: CT CHEST WITH COMPLETED DATE/TIME: 10/13/2018 11:21 am REASON FOR STUDY: chest pain, weight loss tobacco hx COMPARISON: None. TECHNIQUE: CT scan of the chest performed using helical scanning technique with dynamic intravenous contrast injection. Images reviewed with lung, soft tissue and bone windows. Reconstructed coronal and sagittal MPR and MIP images reviewed. All images stored on PACS. All CT scanners at this facility use dose modulation, iterative reconstruction, and/or weight based d osing when appropriate to reduce radiation dose to as low as reasonably achievable (ALARA). [facility]: Dose Right [facility]: CareDose [facility]: Dose Right [facility]: Teradose 4D [facility]: [employer] CONTRAST TYPE AND DOSE: 50 mL Omnipaque 350- low osmolar. RENAL FUNCTION: BUN 14 creatinine 0.55 RADIATION DOSE: . LIMITATIONS: None. FINDINGS: LUNGS AND PLEURA: No infiltrates, effusions, or masses. HILAR AND MEDIASTINAL STRUCTURES: No identified masses or abnormal nodes. HEART AND VASCULAR STRUCTURES: No aneurysm or dissection. No pericardial effusion. Coronary atheros clerosis. HARDWARE: None in the chest. UPPER ABDOMEN: See separate report of the CT of the abdomen. THYROID AND OTHER SOFT TISSUES: No masses. No adenopathy. BONES: No significant finding. OTHER: No other significant finding. IMPRESSION: Coronary atherosclerosis. No acute findings in the chest. TECHNICAL DOCUMENTATION: JOB ID: [id number] Quality ID # [id number]: Final reports with documentation of one or more dose reduction techniques (e.g., Au tomated exposure control, adjustment of the mA and/or kV according to patient size, use of iterative reconstruction technique) 2010 [employer]- All Rights Reserved Reading location - IP/workstation name: [email or web address]
--- NOTE | 2018-10-13 11:47 | RADIOLOGY REPORT (SQ) ---
EXAM DESCRIPTION: CT ABD/PELVIS WITH IV ORAL COMPLETED DATE/TIME: 10/13/2018 11:21 am REASON FOR STUDY: chest pain, weight loss tobacco hx COMPARISON: None. TECHNIQUE: CT scan of the abdomen and pelvis performed using helical scanning technique with dynamic intravenous contrast injection. Oral contrast. Images reviewed with lung, soft tissue, and bone win dows. Reconstructed coronal and sagittal MPR images reviewed. Delayed images for evaluation of the ur inary system also acquired. All images stored on PACS. All CT scanners at this facility use dose modulation, iterative reconstruction, and/or weight based d osing when appropriate to reduce radiation dose to as low as reasonably achievable (ALARA). [facility]: Dose Right [facility]: CareDose [facility]: Dose Right [facility]: Teradose 4D [facility]: [employer] CONTRAST TYPE AND DOSE: contrast/concentration: Isovue 350.00 mg/ml; Total Contrast Delivered: 50.0 ml; Total Saline Delivered: 65.0 ml RENAL FUNCTION: BUN 14 creatinine 0.55 RADIATION DOSE: CT Rad equipment meets quality standard of care and radiation dose reduction techniq ues were employed. CTDIvol: 4.4 - 4.5 mGy. DLP: 586 mGy-cm.. LIMITATIONS: None. FINDINGS: LOWER CHEST: See separate report of the CT of the chest. LIVER: Normal size. No masses. No dilated ducts. SPLEEN: Normal size. No focal lesions. PANCREAS: No masses. No significant calcifications. No adjacent inflammation or peripancreatic fluid collections. Pancreatic duct not dilated. GALLBLADDER: No identified stones by CT criteria. No inflammatory changes to suggest cholecystitis. ADRENAL GLANDS: No significant masses or asymmetry. RIGHT KIDNEY AND URETER: No solid masses. No significant calcifications. No hydronephrosis or hyd roureter. LEFT KIDNEY AND URETER: No solid masses. No significant calcifications. No hydronephrosis or hydr oureter. AORTA AND VESSELS: No aneurysm. No dissection. Renal arteries, SMA, celiac without stenosis. RETROPERITONEUM: No retroperitoneal adenopathy, hemorrhage or masses. BOWEL AND PERITONEAL CAVITY: There is gastric distention. There is apparent thickening of the wall o f the pylorus. Contrast is present in the small bowel and minimal contrast is present in the colon. Sigmoid diverticulosis. No associated inflammation. APPENDIX: Not identified. PELVIS: A filling defect is seen in the left side of the bladder on image 71 series 8. A [place] [address] is present in the bladder. ABDOMINAL WALL: No masses. No hernias. BONES: No significant or acute findings. OTHER: No other significant finding. IMPRESSION: 1. Gastric distention with questionable thickening of the wall of the pylorus. It is p ossible that this appearance is merely secondary to peristalsis. 2. Small filling defect in the left side of the urinary bladder of uncertain etiology. TECHNICAL DOCUMENTATION: JOB ID: [id number] Quality ID # [id number]: Final reports with documentation of one or more dose reduction techniques (e.g., Au tomated exposure control, adjustment of the mA and/or kV according to patient size, use of iterative reconstruction technique) 2010 [employer]- All Rights Reserved Reading location - IP/workstation name: [email or web address]
[2018-10-13] MEDS: ONDANSETRON HCL INJ/PF 4 MG/2 ML SDV IV PRN (14:23)
[2018-10-14] MEDS ORDERED: ASPIRIN 325 MG TABLET PO ONE (00:45)
[2018-10-14 07:35] LABS: ABSOLUTE BASOPHILS # (AUTO) 0.1 10^3/uL (0.0-0.2); ABSOLUTE EOSINOPHILS # (AUTO) 0.1 10^3/uL (0.0-0.6); ABSOLUTE LYMPHOCYTES (AUTO) 2.9 10^3/uL (0.5-4.7); ABSOLUTE NEUT (AUTO) 7.2 10^3/uL (1.7-8.2); BASOPHILS % (AUTO) 0.6 % (0-2); EOSINOPHILS % (AUTO) 0.6 % (0-6); HEMATOCRIT 37.8 % (36.0-47.0); LYMPHOCYTES % (AUTO) 26.1 % (13-45); MEAN CORPUSCULAR HEMOGLOBIN 30.6 pg (27.0-33.4); MEAN CORPUSCULAR HGB CONC 33.2 g/dL (32.0-36.0); MEAN CORPUSCULAR VOLUME 92 fl (80-97); MONOCYTES % (AUTO) 8.6 % (3-13); PLATELET COUNT 250 10^3/uL (150-450); RED BLOOD COUNT 4.11 10^6/uL (3.72-5.28); SEGMENTED NEUTROPHILS % (AUTO) 64.1 % (42-78); TOTAL CELLS COUNTED % (AUTO) 100 %; WHITE BLOOD COUNT 11.2 10^3/uL (4.0-10.5)
[2018-10-14] MEDS: HEPARIN SOD (PORCINE) 5,000 UNIT/ML 1 ML SYRINGE SUBCUT SCH ×3 (07:44→22:22)
[2018-10-14 08:33] LABS: HEMOGLOBIN 12.6 g/dL (12.0-15.5)
[2018-10-14] MEDS: SUCRALFATE 1 GM TABLET PO SCH ×3 (09:07→18:32)
[2018-10-14 09:41] LABS: ANION GAP 9 (5-19); BLOOD UREA NITROGEN 8 mg/dL (7-20); CALCIUM 9.4 mg/dL (8.4-10.2); CARBON DIOXIDE 26 mmol/L (22-30); CHLORIDE 103 mmol/L (98-107); CREATINE KINASE 241 U/L (30-135); GLUCOSE 95 mg/dL (75-110); POTASSIUM 3.8 mmol/L (3.6-5.0); SODIUM 138.1 mmol/L (137-145)
[2018-10-14] MEDS: ASPIRIN 81 MG TABLET, ENT COATED PO SCH (10:50)
[2018-10-14] MEDS: POTASSIUM CHLORIDE 10 MEQ CAPSULE.ER PO SCH (10:51)
[2018-10-14] MEDS: LISINOPRIL 5 MG TABLET PO SCH (10:56)
--- NOTE | 2018-10-14 17:08 | PDOC PROGRESS REPORT ---
Subjective Progress Note for:: 10/14/18 Subjective:: This is a 63 year old female with a past medical history of hypertension, dyslipidemia and tobacco with complaints of recurrent chest and epigastric pain associated with weight loss. Patient was observed 10 days ago for chest pain with a negative cardiac work-up she was discharged however returned to the emergency room after found disheveled, confused and hypothermic. In the emergency room she is found to have a temperature of 94.4 and placed on bear hugger with a return of her mental status to baseline. She complains of epigastric pain, early satiety and weight loss. Her carbon monoxide level was also found to be elevated. No acute event overnight. Appears she is at her baseline mentation this morning and is oriented x 4. She says she could not remember what happened and why she was found confused outside. Denies chest pain or SOB. Reason For Visit: HYPOTHERMIA DELERIUM Physical Exam Vital Signs: Temp Pulse Resp BP Pulse Ox 98.8 F 62 18 98/49 L 98 10/14/18 16:00 10/14/18 16:00 10/14/18 16:00 10/14/18 16:00 10/14/18 16:00 Intake & Output 10/13/18 10/14/18 10/15/18 06:59 06:59 06:59 Intake Total 1456 Output Total 2245 Balance -789 Weight 97 lb 10.636 oz 102 lb 4.712 oz General appearance: PRESENT: no acute distress, well-developed, well-nourished Head exam: PRESENT: atraumatic, normocephalic Eye exam: PRESENT: conjunctiva pink, EOMI, PERRLA. ABSENT: scleral icterus Ear exam: PRESENT: normal external ear exam Mouth exam: PRESENT: moist, tongue midline Neck exam: ABSENT: carotid bruit, JVD, lymphadenopathy, thyromegaly Respiratory exam: PRESENT: clear to auscultation opal. ABSENT: rales, rhonchi, wheezes Cardiovascular exam: PRESENT: RRR. ABSENT: diastolic murmur, rubs, systolic murmur Pulses: PRESENT: normal dorsalis pedis pul GI/Abdominal exam: PRESENT: normal bowel sounds, soft. ABSENT: distended, guarding, mass, organolmegaly, rebound, tenderness Rectal exam: PRESENT: deferred Neurological exam: PRESENT: alert, awake, oriented to person, oriented to place, oriented to time, oriented to situation, CN II-XII grossly intact. ABSENT: motor sensory deficit Results Laboratory Results: 10/14/18 06:27 10/14/18 06:27 10/14/18 10/14/18 06:27 06:27 WBC 11.2 H RBC 4.11 Hgb 12.6 D Hct 37.8 MCV 92 MCH 30.6 MCHC 33.2 RDW 13.0 Plt Count 250 Seg Neutrophils % 64.1 Lymphocytes % 26.1 Monocytes % 8.6 Eosinophils % 0.6 Basophils % 0.6 Absolute Neutrophils 7.2 Absolute Lymphocytes 2.9 Absolute Monocytes 1.0 Absolute Eosinophils 0.1 Absolute Basophils 0.1 Sodium 138.1 Potassium 3.8 Chloride 103 Carbon Dioxide 26 Anion Gap 9 BUN 8 Creatinine 0.49 L Est GFR ( Amer) > 60 Est GFR (Non-Af Amer) > 60 Glucose 95 Calcium 9.4 10/13/18 10/13/18 10/13/18 05:54 05:54 12:45 Creatine Kinase 538 H 471 H Troponin I 0.052 10/13/18 10/13/18 10/13/18 12:45 18:13 18:13 Creatine Kinase 393 H Troponin I 0.014 0.014 10/14/18 06:27 Creatine Kinase 241 H Troponin I Impressions: Abdomen/Pelvis CT 10/13/18 00:00 IMPRESSION: 1. Gastric distention with questionable thickening of the wall of the pylorus. It is possible that this appearance is merely secondary to peristalsis. 2. Small filling defect in the left side of the urinary bladder of uncertain etiology. Chest CT 10/13/18 00:00 IMPRESSION: Coronary atherosclerosis. No acute findings in the chest. Head CT 10/13/18 01:16 IMPRESSION: No acute intracranial abnormality. TECHNICAL DOCUMENTATION: Quality ID # 436: Final reports with documentation of one or more dose reduction techniques (e.g., Automated exposure control, adjustment of the mA and/or kV according to patient size, use of iterative reconstruction technique) copyright 2010 [employer]- All Rights Reserved Chest X-Ray 10/13/18 01:17 IMPRESSION: No acute cardiopulmonary abnormality copyright 2010 [employer]- All Rights Reserved Assessment and Plan - Diagnosis (1) Acute encephalopathy Is this a current diagnosis for this admission?: Yes Plan: Unclear etiology. UDS and CT head negative. Her carboxyhemoglobin is elevated at 2.5. Questionable CO exposure but this level can also be consistent with chronic active smoker. (2) Hypothermia Qualifiers: Encounter type: initial encounter Qualified Code(s): T68.XXXA - Hypothermia, initial encounter Is this a current diagnosis for this admission?: Yes Plan: Resolved. Possibly environmental exposure. She did say she was roaming and was found outside without a jacket and though it was cold. TSH, cortisol were normal. (3) Weight loss Is this a current diagnosis for this admission?: Yes Plan: CT imaging unremarkable except for thickening in the pylorus area. - Time Time Spent with patient: 25-34 minutes
[2018-10-14] MEDS: ONDANSETRON HCL INJ/PF 4 MG/2 ML SDV IV PRN (18:37)
[2018-10-15] MEDS: HEPARIN SOD (PORCINE) 5,000 UNIT/ML 1 ML SYRINGE SUBCUT SCH ×3 (05:26→21:55)
[2018-10-15] MEDS: SUCRALFATE 1 GM TABLET PO SCH ×3 (08:04→16:38)
[2018-10-15] MEDS: LISINOPRIL 5 MG TABLET PO SCH (09:42)
[2018-10-15] MEDS: ASPIRIN 81 MG TABLET, ENT COATED PO SCH (09:42)
[2018-10-15] MEDS: POTASSIUM CHLORIDE 10 MEQ CAPSULE.ER PO SCH (09:43)
--- NOTE | 2018-10-15 13:00 | PDOC PROGRESS REPORT ---
Subjective Progress Note for:: 10/15/18 Subjective:: This is a 63 year old female with a past medical history of hypertension, dyslipidemia and tobacco with complaints of recurrent chest and epigastric pain associated with weight loss. Patient was observed 10 days ago for chest pain with a negative cardiac work-up she was discharged however returned to the emergency room after found disheveled, confused and hypothermic. In the emergency room she is found to have a temperature of 94.4 and placed on bear hugger with a return of her mental status to baseline. She complains of epigastric pain, early satiety and weight loss. Her carbon monoxide level was also found to be elevated. 10/14: Appears she is at her baseline mentation this morning and is oriented x 4. She says she could not remember what happened and why she was found confused outside. Denies chest pain or SOB. 10/15: No acute event overnight. Surgery was consulted for possible EGD due to findings on CT scan and her recent progressive weight loss, epigastric pain and occasional inability to keep food down. Discussed case with surgery who has re commend upper GI series and possible EGD on Wednesday. Reason For Visit: HYPOTHERMIA DELERIUM Physical Exam Vital Signs: Temp Pulse Resp BP Pulse Ox 97.4 F 70 16 107/57 L 100 10/15/18 12:00 10/15/18 12:00 10/15/18 12:00 10/15/18 12:00 10/15/18 12:00 Intake & Output 10/14/18 10/15/18 10/16/18 06:59 06:59 06:59 Intake Total 1456 1796 Output Total 2240 2975 Balance -789 -1179 Weight 102 lb 4.712 oz 98 lb 12.273 oz General appearance: PRESENT: no acute distress, well-developed, well-nourished Head exam: PRESENT: atraumatic, normocephalic Eye exam: PRESENT: conjunctiva pink, EOMI, PERRLA. ABSENT: scleral icterus Ear exam: PRESENT: normal external ear exam Mouth exam: PRESENT: moist, tongue midline Neck exam: ABSENT: carotid bruit, JVD, lymphadenopathy, thyromegaly Respiratory exam: PRESENT: clear to auscultation opal. ABSENT: rales, rhonchi, wheezes Cardiovascular exam: PRESENT: RRR. ABSENT: diastolic murmur, rubs, systolic murmur Pulses: PRESENT: normal dorsalis pedis pul GI/Abdominal exam: PRESENT: normal bowel sounds, soft. ABSENT: distended, guarding, mass, organolmegaly, rebound, tenderness Rectal exam: PRESENT: deferred Extremities exam: PRESENT: full ROM. ABSENT: calf tenderness, clubbing, pedal edema Neurological exam: PRESENT: alert, awake, oriented to person, oriented to place, oriented to time, oriented to situation, CN II-XII grossly intact. ABSENT: motor sensory deficit Results Laboratory Results: 10/14/18 06:27 10/14/18 06:27 10/13/18 10/13/18 10/13/18 05:54 05:54 12:45 Creatine Kinase 538 H 471 H Troponin I 0.052 10/13/18 10/13/18 10/13/18 12:45 18:13 18:13 Creatine Kinase 393 H Troponin I 0.014 0.014 10/14/18 06:27 Creatine Kinase 241 H Troponin I Impressions: Abdomen/Pelvis CT 10/13/18 00:00 IMPRESSION: 1. Gastric distention with questionable thickening of the wall of the pylorus. It is possible that this appearance is merely secondary to peristalsis. 2. Small filling defect in the left side of the urinary bladder of uncertain etiology. Chest CT 10/13/18 00:00 IMPRESSION: Coronary atherosclerosis. No acute findings in the chest. Head CT 10/13/18 01:16 IMPRESSION: No acute intracranial abnormality. TECHNICAL DOCUMENTATION: Quality ID # 436: Final reports with documentation of one or more dose reduction techniques (e.g., Automated exposure control, adjustment of the mA and/or kV according to patient size, use of iterative reconstruction technique) copyright 2010 [employer] [place]- All Rights Reserved Chest X-Ray 10/13/18 01:17 IMPRESSION: No acute cardiopulmonary abnormality copyright 2010 [employer] [place]- All Rights Reserved Assessment and Plan - Diagnosis (1) Acute encephalopathy Is this a current diagnosis for this admission?: Yes Plan: Unclear etiology. UDS and CT head negative. Her carboxyhemoglobin is elevated at 2.5. Questionable CO exposure but this level can also be consistent with chronic active smoker. (2) Hypothermia Qualifiers: Encounter type: initial encounter Qualified Code(s): T68.XXXA - Hypothermia, initial encounter Is this a current diagnosis for this admission?: Yes Plan: Resolved. Possibly environmental exposure. She did say she was roaming and was found outside without a jacket and though it was cold. TSH, cortisol were normal. (3) Weight loss Is this a current diagnosis for this admission?: Yes Plan: CT imaging unremarkable except for thickening in the pylorus area. 10/15: Surgery was consulted for possible EGD due to findings on CT scan and her recent progressive weight loss, epigastric pain and occasional inability to keep food down. Discussed case with surgery who has recommend upper GI series and possible EGD on Wednesday. - Time Time Spent with patient: 25-34 minutes
--- NOTE | 2018-10-15 17:54 | PDOC CONSULTATION ---
Consultation Consult Date: 10/15/18 Consult reason:: gastric distention with thickened pylorus on CT scan History of Present Illness Admission Date/PCP: 10/13/18 04:51 Patient complains of: abdominal pains History of Present Illness: JACOBY HERNANDEZ is a 63 year old female who was brought in to ED found dishiveld,confuse and hypothermic. Placed in a Bear hugger with return to baseline mental atatus and normothermia. Had a CT scan of abd/pelvis which showed gastric distention and thickened pylorus. C/O epigastric pains. Past Medical History Cardiac Medical History: Reports: Hypertension Psychiatric Medical History: Denies: Depression Social History Lives with: Friend Smoking Status: Current Every Day Smoker Cigarettes Packs Per Day: 2 Number of Years Smokin Frequency of Alcohol Use: Rare Hx Recreational Drug Use: No Drugs: None Hx Prescription Drug Abuse: No - Advance Directive Resuscitation Status: Full Code Family History Family History: CAD, COPD Parental Family History Reviewed: Yes Children Family History Reviewed: No Sibling(s) Family History Reviewed.: No Medication/Allergy Home Medications: Albuterol Sulfate [Proair HFA Inhalation Aerosol 8.5 gm MDI] 2 puff IH Q6HP PRN 10/13/18 Lisinopril [Zestril] 10 mg PO DAILY 10/13/18 Rosuvastatin Calcium [Crestor 20 mg Tablet] 20 mg PO QHS 10/13/18 Allergies/Adverse Reactions: acetaminophen [From [place]] Adverse Reaction (Verified 10/02/18 15:15) hydrocodone [From [place]] Adverse Reaction (Verified 10/02/18 15:15) Review of Systems Constitutional: PRESENT: weight loss Eyes: PRESENT: other - no visual/hearing changes Cardiovascular: PRESENT: chest pain Gastrointestinal: PRESENT: abdominal pain, nausea Genitourinary: PRESENT: other - no dysuria Physical Exam Vital Signs: Temp Pulse Resp BP Pulse Ox 98.3 F 64 16 97/49 L 100 10/15/18 16:00 10/15/18 16:00 10/15/18 16:00 10/15/18 16:00 10/15/18 16:00 Intake & Output 10/14/18 10/15/18 10/16/18 06:59 06:59 06:59 Intake Total 1456 1796 Output Total 1919 1395 Balance -789 -1179 Weight 46.4 kg 44.8 kg General appearance: PRESENT: no acute distress Head exam: PRESENT: atraumatic Eye exam: PRESENT: conjunctiva pink Mouth exam: PRESENT: moist Respiratory exam: PRESENT: clear to auscultation opal Cardiovascular exam: PRESENT: RRR Pulses: PRESENT: normal radial pulses Vascular exam: PRESENT: normal capillary refill GI/Abdominal exam: PRESENT: soft, tenderness - mild epigastric tenderness Rectal exam: PRESENT: deferred Extremities exam: PRESENT: full ROM Musculoskeletal exam: PRESENT: ambulatory Neurological exam: PRESENT: alert, oriented to person, oriented to place, oriented to time, oriented to situation Psychiatric exam: PRESENT: appropriate affect Skin exam: PRESENT: normal color, warm Results Laboratory Results: 10/14/18 06:27 10/14/18 06:27 10/13/18 10/13/18 10/13/18 05:54 05:54 12:45 Creatine Kinase 538 H 471 H Troponin I 0.052 10/13/18 10/13/18 10/13/18 12:45 18:13 18:13 Creatine Kinase 393 H Troponin I 0.014 0.014 10/14/18 06:27 Creatine Kinase 241 H Troponin I Impressions: Abdomen/Pelvis CT 10/13/18 00:00 IMPRESSION: 1. Gastric distention with questionable thickening of the wall of the pylorus. It is possible that this appearance is merely secondary to peristalsis. 2. Small filling defect in the left side of the urinary bladder of uncertain etiology. Chest CT 10/13/18 00:00 IMPRESSION: Coronary atherosclerosis. No acute findings in the chest. Head CT 10/13/18 01:16 IMPRESSION: No acute intracranial abnormality. TECHNICAL DOCUMENTATION: Quality ID # 436: Final reports with documentation of one or more dose reduction techniques (e.g., Automated exposure control, adjustment of the mA and/or kV according to patient size, use of iterative reconstruction technique) copyright 2011 [employer]- All Rights Reserved Chest X-Ray 10/13/18 01:17 IMPRESSION: No acute cardiopulmonary abnormality copyright 2010 [employer]- All Rights Reserved Assessment & Plan - Diagnosis (1) Altered mental status Qualifiers: Altered mental status type: unspecified Qualified Code(s): R41.82 - Altered mental status, unspecified Is this a current diagnosis for this admission?: Yes (2) Epigastric pain Is this a current diagnosis for this admission?: Yes (3) Hypothermia Qualifiers: Encounter type: initial encounter Qualified Code(s): T68.XXXA - Hypothermia, initial encounter Is this a current diagnosis for this admission?: Yes (4) Weight loss Is this a current diagnosis for this admission?: Yes (5) Tobacco abuse Is this a current diagnosis for this admission?: Yes - Time Time Spent: 30 to 50 Minutes - Inpatient Certification Medical Necessity: Need Close Monitoring Due to Risk of Patient Decompensation, Need For IV Fluids - Plan Summary Plan Summary: D/W Dr INIGUEZ. Will order UGIS to check on patency of pylorus Possibe EGD/Bx Wednesday by Dr Mccloud
--- NOTE | 2018-10-15 18:12 | RADIOLOGY REPORT (SQ) ---
EXAM DESCRIPTION: UGI SERIES; BARIUM SWALLOW ESOPHAGUS COMPLETED DATE/TIME: 10/15/2018 6:00 pm REASON FOR STUDY: r/o gastric outlet obstruction COMPARISON: None. TECHNIQUE: Under fluoroscopic guidance, patient ingested effervescent granules followed by thick and thin barium. Fluoroscopic spot images and routine radiographic images acquired and stored on PACS. 12 MM BARIUM TABLET GIVEN: Yes. significant delay in passage. LIMITATIONS: None. FLUOROSCOPY TIME: FLUORO TIME: 3 minutes 6 seconds 20 images saved to PACS. FINDINGS: NEUROMUSCULAR COORDINATION OF SWALLOW: Normal. No aspiration. ESOPHAGEAL MOTILITY: Normal peristalsis. No esophageal spasm. ESOPHAGEAL MUCOSA: Normal mucosa without masses or ulceration. GASTRO-ESOPHAGEAL JUNCTION: Slight delayed until passage at the GE junction Small hiatal hernia witho ut reflux. STOMACH: Normal without masses or ulcerations. GASTRIC OUTLET: No delay in emptying. Normal pylorus. DUODENAL BULB: Normal distention. No spasm or ulceration. DUODENUM: Mucosa normal. No extrinsic masses or malrotation. PROXIMAL SMALL BOWEL: Mucosa normal. No extrinsic masses or malrotation. NON-GI TRACT STRUCTURES: No significant finding. OTHER: No other significant finding. IMPRESSION: Small hiatal hernia without any evidence of reflux. Slight delayed spill passage at the GE junction. Direct visualization for further evaluation. No evidence of gastric outlet delay COMMENT: Quality ID 145: Final reports for procedures using fluoroscopy that document radiation exp osure indices, or exposure time and number of fluorographic images (if radiation exposure indices are not available) TECHNICAL DOCUMENTATION: JOB ID: [id number] [employer]- All Rights Reserved Reading location - IP/workstation name: [email or web address]
[2018-10-16] MEDS: HEPARIN SOD (PORCINE) 5,000 UNIT/ML 1 ML SYRINGE SUBCUT SCH ×3 (05:37→21:15)
[2018-10-16] MEDS: SUCRALFATE 1 GM TABLET PO SCH ×3 (09:59→15:07)
--- NOTE | 2018-10-16 10:58 | PDOC PROGRESS REPORT ---
Subjective Progress Note for:: 10/16/18 Subjective:: This is a 63 year old female with a past medical history of hypertension, dyslipidemia and tobacco with complaints of recurrent chest and epigastric pain associated with weight loss. Patient was observed 10 days ago for chest pain with a negative cardiac work-up she was discharged however returned to the emergency room after found disheveled, confused and hypothermic. In the emergency room she is found to have a temperature of 94.4 and placed on bear hugger with a return of her mental status to baseline. She complains of epigastric pain, early satiety and weight loss. Her carbon monoxide level was also found to be elevated. 10/14: Appears she is at her baseline mentation this morning and is oriented x 4. She says she could not remember what happened and why she was found confused outside. Denies chest pain or SOB. 10/15: Surgery was consulted for possible EGD due to findings on CT scan and her recent progressive weight loss, epigastric pain and occasional inability to keep food down. Discussed case with surgery who has recommend upper GI series and possible EGD on Wednesday. 10/16: No acute event overnight. She underwent upper GI series which showed slight delayed passage over the GE junction. Radiology has recommended direct visualization with EGD. Reason For Visit: ACUTE ENCEPHALOPHATHY,HYPOTHERMIA,WEIGHT LOSS, Physical Exam Vital Signs: Temp Pulse Resp BP Pulse Ox 98.4 F 72 19 140/65 H 100 10/16/18 08:00 10/16/18 08:00 10/16/18 08:00 10/16/18 08:00 10/16/18 08:00 Intake & Output 10/15/18 10/16/18 10/17/18 06:59 06:59 06:59 Intake Total 1796 1120 Output Total 2975 1600 Balance -1179 -480 Weight 98 lb 12.273 oz 99 lb 10.383 oz General appearance: PRESENT: no acute distress, well-developed, well-nourished Head exam: PRESENT: atraumatic, normocephalic Eye exam: PRESENT: conjunctiva pink, EOMI, PERRLA. ABSENT: scleral icterus Ear exam: PRESENT: normal external ear exam Mouth exam: PRESENT: moist, tongue midline Neck exam: ABSENT: carotid bruit, JVD, lymphadenopathy, thyromegaly Respiratory exam: PRESENT: clear to auscultation opal. ABSENT: rales, rhonchi, wheezes Cardiovascular exam: PRESENT: RRR. ABSENT: diastolic murmur, rubs, systolic murmur Pulses: PRESENT: normal carotid pulses GI/Abdominal exam: PRESENT: normal bowel sounds, soft. ABSENT: distended, guarding, mass, organolmegaly, rebound, tenderness Rectal exam: PRESENT: deferred Neurological exam: PRESENT: alert, awake, oriented to person, oriented to place, oriented to time, oriented to situation, CN II-XII grossly intact. ABSENT: motor sensory deficit Results Laboratory Results: 10/14/18 06:27 10/14/18 06:27 10/13/18 10/13/18 10/13/18 05:54 05:54 12:45 Creatine Kinase 538 H 471 H Troponin I 0.052 10/13/18 10/13/18 10/13/18 12:45 18:13 18:13 Creatine Kinase 393 H Troponin I 0.014 0.014 10/14/18 06:27 Creatine Kinase 241 H Troponin I Impressions: Abdomen/Pelvis CT 10/13/18 00:00 IMPRESSION: 1. Gastric distention with questionable thickening of the wall of the pylorus. It is possible that this appearance is merely secondary to peristalsis. 2. Small filling defect in the left side of the urinary bladder of uncertain etiology. Chest CT 10/13/18 00:00 IMPRESSION: Coronary atherosclerosis. No acute findings in the chest. Head CT 10/13/18 01:16 IMPRESSION: No acute intracranial abnormality. TECHNICAL DOCUMENTATION: Quality ID # 436: Final reports with documentation of one or more dose reduction techniques (e.g., Automated exposure control, adjustment of the mA and/or kV according to patient size, use of iterative reconstruction technique) copyright 2010 [employer]- All Rights Reserved Chest X-Ray 10/13/18 01:17 IMPRESSION: No acute cardiopulmonary abnormality copyright 2010 [employer]- All Rights Reserved Esophagus X-Ray 10/15/18 00:00 IMPRESSION: Small hiatal hernia without any evidence of reflux. Slight delayed spill passage at the GE junction. Direct visualization for further evaluation. No evidence of gastric outlet delay Upper GI Series 10/15/18 00:00 IMPRESSION: Small hiatal hernia without any evidence of reflux. Slight delayed spill passage at the GE junction. Direct visualization for further evaluation. No evidence of gastric outlet delay Assessment and Plan - Diagnosis (1) Acute encephalopathy Is this a current diagnosis for this admission?: Yes Plan: Unclear etiology. UDS and CT head negative. Her carboxyhemoglobin is elevated at 2.5. Questionable CO exposure but this level can also be consistent with chronic active smoker. (2) Hypothermia Qualifiers: Encounter type: initial encounter Qualified Code(s): T68.XXXA - Hypothermia, initial encounter Is this a current diagnosis for this admission?: Yes Plan: Resolved. Possibly environmental exposure. She did say she was roaming and was found outside without a jacket and though it was cold. TSH, cortisol were normal. (3) Weight loss Is this a current diagnosis for this admission?: Yes Plan: CT imaging unremarkable except for thickening in the pylorus area. 10/15: Surgery was consulted for possible EGD due to findings on CT scan and her recent progressive weight loss, epigastric pain and occasional inability to keep food down. Discussed case with surgery who has recommend upper GI series and possible EGD on Wednesday. 10/16: She underwent upper GI series which showed slight delayed passage over the GE junction. Radiology has recommended direct visualization with EGD. - Time Time Spent with patient: 25-34 minutes
[2018-10-16] MEDS: POTASSIUM CHLORIDE 10 MEQ CAPSULE.ER PO SCH (12:09)
[2018-10-16] MEDS: LISINOPRIL 5 MG TABLET PO SCH (12:09)
[2018-10-16] MEDS: ASPIRIN 81 MG TABLET, ENT COATED PO SCH (12:09)
[2018-10-16] MEDS: ONDANSETRON HCL INJ/PF 4 MG/2 ML SDV IV PRN (17:50)
--- NOTE | 2018-10-16 20:33 | PDOC PROGRESS REPORT ---
Subjective Progress Note for:: 10/16/18 Subjective:: LUQ pains Reason For Visit: ACUTE ENCEPHALOPHATHY,HYPOTHERMIA,WEIGHT LOSS, Physical Exam Vital Signs: Temp Pulse Resp BP Pulse Ox 98.1 F 61 15 99/52 L 100 10/16/18 19:28 10/16/18 19:28 10/16/18 19:28 10/16/18 19:28 10/16/18 19:28 Intake & Output 10/15/18 10/16/18 10/17/18 06:59 06:59 06:59 Intake Total 1796 1120 1050 Output Total 2975 1600 1600 Balance -4344 -272 -929 Weight 44.8 kg 45.2 kg Exam: Seen eating and tolerating reg diet Abd is soft with mild tenderness LUQ Results Laboratory Results: 10/14/18 06:27 10/14/18 06:27 10/13/18 10/13/18 10/13/18 05:54 05:54 12:45 Creatine Kinase 538 H 471 H Troponin I 0.052 10/13/18 10/13/18 10/13/18 12:45 18:13 18:13 Creatine Kinase 393 H Troponin I 0.014 0.014 10/14/18 06:27 Creatine Kinase 241 H Troponin I Impressions: Abdomen/Pelvis CT 10/13/18 00:00 IMPRESSION: 1. Gastric distention with questionable thickening of the wall of the pylorus. It is possible that this appearance is merely secondary to peristalsis. 2. Small filling defect in the left side of the urinary bladder of uncertain etiology. Chest CT 10/13/18 00:00 IMPRESSION: Coronary atherosclerosis. No acute findings in the chest. Head CT 10/13/18 01:16 IMPRESSION: No acute intracranial abnormality. TECHNICAL DOCUMENTATION: Quality ID # 436: Final reports with documentation of one or more dose reduction techniques (e.g., Automated exposure control, adjustment of the mA and/or kV according to patient size, use of iterative reconstruction technique) copyright 2010 [employer]- All Rights Reserved Chest X-Ray 10/13/18 01:17 IMPRESSION: No acute cardiopulmonary abnormality copyright 2010 [employer]- All Rights Reserved Esophagus X-Ray 10/15/18 00:00 IMPRESSION: Small hiatal hernia without any evidence of reflux. Slight delayed spill passage at the GE junction. Direct visualization for further evaluation. No evidence of gastric outlet delay Upper GI Series 10/15/18 00:00 IMPRESSION: Small hiatal hernia without any evidence of reflux. Slight delayed spill passage at the GE junction. Direct visualization for further evaluation. No evidence of gastric outlet delay Assessment & Plan - Diagnosis (1) Altered mental status Qualifiers: Altered mental status type: unspecified Qualified Code(s): R41.82 - Altered mental status, unspecified Is this a current diagnosis for this admission?: Yes (2) Epigastric pain Is this a current diagnosis for this admission?: Yes (3) Hypothermia Qualifiers: Encounter type: initial encounter Qualified Code(s): T68.XXXA - Hypothermia, initial encounter Is this a current diagnosis for this admission?: Yes (4) Weight loss Is this a current diagnosis for this admission?: Yes (5) Tobacco abuse Is this a current diagnosis for this admission?: Yes - Time Time Spent with patient: 15-24 minutes - Plan Summary Plan Summary: UGIS yesterday showed slight delayed passage of dye thru EG junction. Pylorus normal Plan: Scheduled for EGD by Dr Mccloud tomorrow
[2018-10-17] MEDS: HEPARIN SOD (PORCINE) 5,000 UNIT/ML 1 ML SYRINGE SUBCUT SCH ×3 (05:15→21:57)
[2018-10-17] MEDS: SUCRALFATE 1 GM TABLET PO SCH ×3 (07:54→15:58)
[2018-10-17] MEDS: NORMAL SALINE 1000 ML 1,000 ML IV PRN ×2 (09:53→22:43)
[2018-10-17] MEDS: LISINOPRIL 5 MG TABLET PO SCH (11:08)
[2018-10-17] MEDS: POTASSIUM CHLORIDE 10 MEQ CAPSULE.ER PO SCH (11:08)
[2018-10-17] MEDS: ASPIRIN 81 MG TABLET, ENT COATED PO SCH (11:08)
[2018-10-17] MEDS ORDERED: FENTANYL CITRATE INJ/PF 100 MCG/2 ML AMPUL ONE (13:14)
[2018-10-17] MEDS ORDERED: NALOXONE HCL INJ/PF 0.4 MG/1 ML SDV ONE (13:14)
[2018-10-17] MEDS ORDERED: DIPHENHYDRAMINE HCL 50 MG/ML VIAL ONE (13:14)
[2018-10-17] MEDS ORDERED: MIDAZOLAM 2 MG/2 ML INJ ONE (13:14)
[2018-10-17] MEDS ORDERED: ONDANSETRON HCL INJ/PF 4 MG/2 ML SDV ONE (13:14)
[2018-10-17] MEDS ORDERED: EPINEPHRINE INJ 1 MG/10 ML DISP.SYRIN ONE (13:15)
[2018-10-17] MEDS ORDERED: GLUCAGON,HUMAN RECOMB 1 MG INJ ONE (13:15)
[2018-10-17] MEDS ORDERED: FLUMAZENIL INJ 0.5 MG/5 ML VIAL ONE (13:15)
--- NOTE | 2018-10-17 14:25 | Operative Report ---
Operative Report DATE OF SURGERY: 10/17/18 PREOPERATIVE DIAGNOSIS: Rule out antral pathology; GERD; hiatal hernia POSTOPERATIVE DIAGNOSIS: Same with mild to moderate gastritis; no evidence of pyloric channel or antral pathology OPERATION: 1. Esophagogastroduodenoscopy. 2. Mucosal biopsy of gastric antrum SURGEON: STEVEN FERRERA ANESTHESIA: Moderate Sedation TISSUE REMOVED OR ALTERED: Mucosal biopsy COMPLICATIONS: None ESTIMATED BLOOD LOSS: Scant INTRAOPERATIVE FINDINGS: See below PROCEDURE: The patient was taken from the floor to the endoscopy suite where conscious sedation was induced. She is present; position monitoring devices attached, surgical plan surgical timeout were conducted. The flexible adult upper endoscope was advanced to the oropharynx, down the esophagus through the stomach into the first and second portions of the duodenum. The study was well-tolerated. The first and second portion of the duodenum were completely normal. The scope was brought back through the pylorus in a retrograde and anterograde fashion and there was no evidence of tumor, stricture, or mucosal abnormality. Peristalsis was vigorous. The gastric antrum was significant for mild to moderate gastritis with streaking. There was no evidence of ulceration. A random biopsy of the gastric antrum was obtained. It was sent for JUSTIN and histologic analysis. Scope was retroflexed in the stomach and a good look at the GE junction revealed a small hiatal hernia. There is no evidence of tumor polyp stricture or bleeding in the stomach. Scope was brought back to the GE junction. The incisor to Z line distance is approximately 36 cm. No gross pathology at the Z line. No biopsies obtained. The rest the esophagus was unremarkable. Scope was withdrawn for patient oropharynx. She procedure well. Impression: No endoscopic evidence of distal antral or pyloric channel patholog y. Plan Return patient to the floor, and management medical standpoint; no indication for further surgical intervention. Will sign off; reconsult if needed
--- NOTE | 2018-10-17 16:30 | PDOC PROGRESS REPORT ---
Subjective Progress Note for:: 10/17/18 Subjective:: This is a 63 year old female with a past medical history of hypertension, dyslipidemia and tobacco with complaints of recurrent chest and epigastric pain associated with weight loss. Patient was observed 10 days ago for chest pain with a negative cardiac work-up she was discharged however returned to the emergency room after found disheveled, confused and hypothermic. In the emergency room she is found to have a temperature of 94.4 and placed on bear hugger with a return of her mental status to baseline. She complains of epigastric pain, early satiety and weight loss. Her carbon monoxide level was also found to be elevated. 10/14: Appears she is at her baseline mentation this morning and is oriented x 4. She says she could not remember what happened and why she was found confused outside. Denies chest pain or SOB. 10/15: Surgery was consulted for possible EGD due to findings on CT scan and her recent progressive weight loss, epigastric pain and occasional inability to keep food down. Discussed case with surgery who has recommend upper GI series and possible EGD on Wednesday. 10/16: She underwent upper GI series which showed slight delayed passage over the GE junction. Radiology has recommended direct visualization with EGD. 10/17: No acute event overnight. Patient just got back from EGD. Discussed findings with surgicalist. No apparent mass or tumor, random biopsy was done. EGD did reveal moderate gastritis. She was recently discharged after an unremarkable cardiac work-up. No clear cause of her acute encephalopathy was identified aside from elevated carbon monoxide. Patient expressed she lives with her female friend whose boyfriend also lives with them. She says he brings in drugs and firearms at their apartment and seems to have some occasional psychotic episodes. Will consult case management to help assess home situation and other options. Reason For Visit: ACUTE ENCEPHALOPHATHY,HYPOTHERMIA,WEIGHT LOSS, Physical Exam Vital Signs: Temp Pulse Resp BP Pulse Ox 97.9 F 57 L 11 L 102/55 L 100 10/17/18 13:40 10/17/18 14:35 10/17/18 14:35 10/17/18 14:35 10/17/18 14:35 Intake & Output 10/16/18 10/17/18 10/18/18 06:59 06:59 06:59 Intake Total 1120 1450 100 Output Total 1600 2800 Balance -480 -1350 100 Weight 99 lb 10.383 oz 101 lb 10.13 oz General appearance: PRESENT: no acute distress, well-developed, well-nourished Head exam: PRESENT: atraumatic, normocephalic Eye exam: PRESENT: conjunctiva pink, EOMI, PERRLA. ABSENT: scleral icterus Ear exam: PRESENT: normal external ear exam Mouth exam: PRESENT: moist, tongue midline Neck exam: ABSENT: carotid bruit, JVD, lymphadenopathy, thyromegaly Respiratory exam: PRESENT: clear to auscultation opal. ABSENT: rales, rhonchi, wheezes Cardiovascular exam: PRESENT: RRR. ABSENT: diastolic murmur, rubs, systolic murmur Pulses: PRESENT: normal dorsalis pedis pul Vascular exam: PRESENT: normal capillary refill GI/Abdominal exam: PRESENT: normal bowel sounds, soft. ABSENT: distended, guarding, mass, organolmegaly, rebound, tenderness Rectal exam: PRESENT: deferred Neurological exam: PRESENT: alert, awake, oriented to person, oriented to place, oriented to time, oriented to situation, CN II-XII grossly intact. ABSENT: motor sensory deficit Results Laboratory Results: 10/14/18 06:27 10/14/18 06:27 10/13/18 10/13/18 10/13/18 05:54 05:54 12:45 Creatine Kinase 538 H 471 H Troponin I 0.052 10/13/18 10/13/18 10/13/18 12:45 18:13 18:13 Creatine Kinase 393 H Troponin I 0.014 0.014 10/14/18 06:27 Creatine Kinase 241 H Troponin I Impressions: Abdomen/Pelvis CT 10/13/18 00:00 IMPRESSION: 1. Gastric distention with questionable thickening of the wall of the pylorus. It is possible that this appearance is merely secondary to peristalsis. 2. Small filling defect in the left side of the urinary bladder of uncertain etiology. Chest CT 10/13/18 00:00 IMPRESSION: Coronary atherosclerosis. No acute findings in the chest. Head CT 10/13/18 01:16 IMPRESSION: No acute intracranial abnormality. TECHNICAL DOCUMENTATION: Quality ID # 436: Final reports with documentation of one or more dose reduction techniques (e.g., Automated exposure control, adjustment of the mA and/or kV according to patient size, use of iterative reconstruction technique) copyright 2010 [employer]- All Rights Reserved Chest X-Ray 10/13/18 01:17 IMPRESSION: No acute cardiopulmonary abnormality copyright 2010 [employer]- All Rights Reserved Esophagus X-Ray 10/15/18 00:00 IMPRESSION: Small hiatal hernia without any evidence of reflux. Slight delayed spill passage at the GE junction. Direct visualization for further evaluation. No evidence of gastric outlet delay Upper GI Series 10/15/18 00:00 IMPRESSION: Small hiatal hernia without any evidence of reflux. Slight delayed spill passage at the GE junction. Direct visualization for further evaluation. No evidence of gastric outlet delay Assessment and Plan - Diagnosis (1) Acute encephalopathy Is this a current diagnosis for this admission?: Yes Plan: Unclear etiology. UDS and CT head negative. Her carboxyhemoglobin is elevated at 2.5. Questionable CO exposure but this level can also be consistent with chronic active smoker. (2) Hypothermia Qualifiers: Encounter type: initial encounter Qualified Code(s): T68.XXXA - Hypothermia, initial encounter Is this a current diagnosis for this admission?: Yes Plan: Resolved. Possibly environmental exposure. She did say she was roaming and was found outside without a jacket and though it was cold. TSH, cortisol were normal. (3) Weight loss Is this a current diagnosis for this admission?: Yes Plan: CT imaging unremarkable except for thickening in the pylorus area. Patient just got back from EGD. (4) Gastritis Is this a current diagnosis for this admission?: Yes Plan: Discussed findings with surgicalist. No apparent mass or tumor, random biopsy was done. EGD did reveal moderate gastritis. Start PPI. - Time Time Spent with patient: 25-34 minutes
[2018-10-18] MEDS: HEPARIN SOD (PORCINE) 5,000 UNIT/ML 1 ML SYRINGE SUBCUT SCH ×3 (06:57→22:43)
[2018-10-18] MEDS: PANTOPRAZOLE SODIUM 40 MG TABLET.DR PO SCH (06:58)
[2018-10-18] MEDS: ASPIRIN 81 MG TABLET, ENT COATED PO SCH (09:44)
[2018-10-18] MEDS: POTASSIUM CHLORIDE 10 MEQ CAPSULE.ER PO SCH (09:44)
[2018-10-18] MEDS: SUCRALFATE 1 GM TABLET PO SCH ×3 (09:44→17:26)
[2018-10-18] MEDS: LISINOPRIL 5 MG TABLET PO SCH (09:44)
[2018-10-18] MEDS: NORMAL SALINE 1000 ML 1,000 ML IV PRN (17:26)
[2018-10-19] MEDS: NORMAL SALINE 1000 ML 1,000 ML IV PRN (05:11)
[2018-10-19] MEDS: HEPARIN SOD (PORCINE) 5,000 UNIT/ML 1 ML SYRINGE SUBCUT SCH ×2 (06:04→14:27)
[2018-10-19] MEDS: PANTOPRAZOLE SODIUM 40 MG TABLET.DR PO SCH (06:05)
[2018-10-19] MEDS: SUCRALFATE 1 GM TABLET PO SCH ×2 (08:57→14:27)
[2018-10-19] MEDS: POTASSIUM CHLORIDE 10 MEQ CAPSULE.ER PO SCH (09:46)
[2018-10-19] MEDS: LISINOPRIL 5 MG TABLET PO SCH (09:46)
[2018-10-19] MEDS: ASPIRIN 81 MG TABLET, ENT COATED PO SCH (09:46)
[2018-10-19 16:21] VITALS: BP 155/61
--- NOTE | 2018-10-20 06:06 | PDOC DISCHARGE SUMMARY ---
General - Admit/Disc Date/PCP Admission Date/Primary Care Provider: 10/13/18 04:51 Discharge Date: 10/18/18 - Discharge Diagnosis (1) Acute encephalopathy Is this a current diagnosis for this admission?: Yes Summary: Metabolic secondary to carbon monoxide exposure. Resolved. (2) Hypothermia Is this a current diagnosis for this admission?: Yes Summary: Unknown etiology. Hypothermia resolved. (3) Weight loss Is this a current diagnosis for this admission?: Yes Summary: Possibly due to dietary habits considering the gastritis that was discovered. This is certainly could decrease appetite. Her thyroid function was normal. With gastritis treated the patient's diet should improve. (4) Altered mental status Is this a current diagnosis for this admission?: Yes Summary: Secondary to carbon monoxide. Improved. (5) Carbon monoxide poisoning Is this a current diagnosis for this admission?: Yes Summary: At the time of discharge Case management was going to arrange for the fire department to assess the patient's living quarters for carbon monoxide levels. They will try and identify a source. Once this is done then corrective action can be taken. (6) Epigastric pain Is this a current diagnosis for this admission?: Yes Summary: Secondary to gastritis. Improved. (7) Gastritis Is this a current diagnosis for this admission?: Yes Summary: Unknown etiology. The patient was placed on aggressive proton pump inhibitor therapy. Follow-up with primary care. - Additional Information Resuscitation Status: Full Code Discharge Diet: Cardiac, Other (Comments) - No caffeine, low acid Discharge Activity: Activity As Tolerated, Balance Activity w/Rest Prescriptions: Pantoprazole Sodium [Protonix [address] Tablet] 40 mg PO BID 14 Days #28 tablet. Sucralfate [Carafate 1 gm Tablet] 1 gm PO AC 14 Days #42 tablet Home Medications: Albuterol Sulfate [Proair HFA Inhalation Aerosol 8.5 gm MDI] 2 puff IH Q6HP PRN 10/13/18 Lisinopril [Zestril] 10 mg PO DAILY 10/13/18 Rosuvastatin Calcium [Crestor 20 mg Tablet] 20 mg PO QHS 10/13/18 Aspirin [Ecotrin 81 mg EC Tablet] 81 mg PO DAILY tabec 10/18/18 Pantoprazole Sodium [Protonix [address] Tablet] 40 mg PO BID 14 Days #28 tablet. 10/18/18 Potassium Chloride [Klor-Con 10 Meq Capsule ER] 20 meq PO DAILY capsule.er 10/18/18 Sucralfate [Carafate 1 gm Tablet] 1 gm PO AC 14 Days #42 tablet 10/18/18 History of Present Illness Patient complains of: Chest and epigastric discomfort with weight loss History of Present Illness: JACOBY HERNANDEZ is a 63 year old female who was seen in the emergency department mid September for similar complaints. Cardiac work-up was negative. The patient returned on October 13 and was found at home disheveled, confused and hypothermic. She was referred to the hospitalist service for admission. Hospital Course Hospital Course: She had a fairly unremarkable hospital course. She was found to have elevated levels of carbon monoxide. Endoscopy revealed gastritis. This certainly would account for decreased appetite with weight loss. The patient slowly recovered and once the gastritis was discovered she was placed on aggressive proton pump inhibitor therapy. Physical Exam Vital Signs: Temp Pulse Resp BP Pulse Ox 98.0 F 56 L 15 107/53 L 98 10/18/18 03:59 10/18/18 07:00 10/18/18 03:59 10/18/18 03:59 10/18/18 03:59 Intake & Output 10/17/18 10/18/18 10/19/18 06:59 06:59 06:59 Intake Total 1450 1420 Output Total 2800 600 Balance -1350 820 Weight 46.1 kg 46.5 kg General appearance: PRESENT: no acute distress, cooperative Head exam: PRESENT: atraumatic, normocephalic Mouth exam: PRESENT: moist, tongue midline Respiratory exam: PRESENT: clear to auscultation opal, symmetrical, unlabored. ABSENT: accessory muscle use, rales, rhonchi, wheezes Cardiovascular exam: PRESENT: RRR, +S1, +S2 GI/Abdominal exam: PRESENT: normal bowel sounds, soft. ABSENT: distended, tenderness Rectal exam: PRESENT: deferred Extremities exam: ABSENT: pedal edema Neurological exam: PRESENT: alert, awake, oriented to person, oriented to place, oriented to time, oriented to situation, CN II-XII grossly intact Psychiatric exam: PRESENT: flat affect. ABSENT: agitated Focused psych exam: ABSENT: delusional, restlessness Results Laboratory Results: 10/14/18 06:27 10/14/18 06:27 04/10/13/18 10/13/18 05:54 05:54 12:45 Creatine Kinase 538 H 471 H Troponin I 0.052 10/13/18 10/13/18 10/13/18 12:45 18:13 18:13 Creatine Kinase 393 H Troponin I 0.014 0.014 10/14/18 06:27 Creatine Kinase 241 H Troponin I Impressions: Abdomen/Pelvis CT 10/13/18 00:00 IMPRESSION: 1. Gastric distention with questionable thickening of the wall of the pylorus. It is possible that this appearance is merely secondary to peristalsis. 2. Small filling defect in the left side of the urinary bladder of uncertain etiology. Chest CT 10/13/18 00:00 IMPRESSION: Coronary atherosclerosis. No acute findings in the chest. Head CT 10/13/18 01:16 IMPRESSION: No acute intracranial abnormality. TECHNICAL DOCUMENTATION: Quality ID # 436: Final reports with documentation of one or more dose reduction techniques (e.g., Automated exposure control, adjustment of the mA and/or kV according to patient size, use of iterative reconstruction technique) copyright 2010 [employer]- All Rights Reserved Chest X-Ray 10/13/18 01:17 IMPRESSION: No acute cardiopulmonary abnormality copyright 2010 [employer]- All Rights Reserved Esophagus X-Ray 10/15/18 00:00 IMPRESSION: Small hiatal hernia without any evidence of reflux. Slight delayed spill passage at the GE junction. Direct visualization for further evaluation. No evidence of gastric outlet delay Upper GI Series 10/15/18 00:00 IMPRESSION: Small hiatal hernia without any evidence of reflux. Slight delayed spill passage at the GE junction. Direct visualization for further evaluation. No evidence of gastric outlet delay Qualifiers - * PATIENT BEING DISCHARGED WITH ANY OF THE FOLLOWING DIAGNOSIS: No Plan Discharge Plan: Case management has arranged for the fire department to assess her home for carbon monoxide levels and possible sources. Once a source is identified then corrective action could be taken. She was given a prescription for proton pump inhibitor therapy and encouraged to stop smoking. An appointment at the [facility] was set up for the patient prior to discharge. Time Spent: Greater than 30 Minutes
== END 2018-10-19 17:00 | disposition home or self-care (01) | DRG 93 ==
LOC: ER 00:52 → EH 04:51 → OBSVTOIN 04:51 → 3S 06:53 → 4S 10-14 03:25
PROVIDERS: ADMIT Internal Medicine; ATTEND Internal Medicine
PROC: 0DD68ZX Extraction of Stomach, Via Natural or Artificial Opening Endoscopic, Diagnostic (ICD-10-PCS; principal; 2018-10-17 13:30)
DX: G92 Toxic encephalopathy (principal); T58.91XA Toxic effect of carbon monoxide from unspecified source, accidental (unintentional), initial encounter; I10 Essential (primary) hypertension; T68.XXXA Hypothermia, initial encounter; R10.13 Epigastric pain; R41.82 Altered mental status, unspecified; R63.4 Abnormal weight loss; K21.9 Gastro-esophageal reflux disease without esophagitis; K29.70 Gastritis, unspecified, without bleeding; F17.210 Nicotine dependence, cigarettes, uncomplicated; Z79.82 Long term (current) use of aspirin; Z79.899 Other long term (current) drug therapy; Y92.89 Other specified places as the place of occurrence of the external cause
CPT/HCPCS: 36415; 43239; 51702; 70450; 71045; 71260; 74177; 74220; 74247; 80048; 80053; 80307; 81001; 82140; 82375; 82533; 82550; 82803; 82962; 84439; 84443; 84481; 84484; 85025; 85652; 87040; 88305; 93005; 93010; 96372; 96374; 99285; J0171; J1200; J1610; J1644; J1720; J2250; J2310; J2405; J3010; J3490; J7030

== ENCOUNTER → 2019-07-21 | Outpatient (CLI) | payer OTHER ==
[~2019-07-21] MED LIST: ALBUTEROL SULFATE 0.083% NEB 2.5 MG/3 ML AMPUL NEB ONE
--- NOTE | 2019-07-24 16:06 | Pulmonary Function Test ---
Pulmonary Function Test Date of Procedure:: 07/21/19 INDICATION:: Dyspnea Referring Provider: Dr. Rosio Caceres Sane Rn: Judit Ring, FAMILY SPECIALIST, BAR ASSISTANT - Report Spirometry: Spirometry: pre-FVC: 1.80 L 72% post-FVC: 2.14 L 85% pre-FEV:1 0.87 L 42% post-FEV1: 1.08 L 53% pre-FEV1/FVC %: 48 post-FEV1/FVC%: 50 predicted: 84 [id number]%: 0.28 L 13% [id number]%: 0.33 L 15% Impression: Moderate obstructive ventilatory defect good response to bronchodilator therapy. Due to decreased flow at FVC restrictive defect may also be indicated but victorino ot be diagnosed on the basis of spirometry alone
== END ==
LOC: RT 10:15
PROVIDERS: ATTEND Family Medicine
DX: J44.9 Chronic obstructive pulmonary disease, unspecified (principal); R06.09 Other forms of dyspnea; F17.210 Nicotine dependence, cigarettes, uncomplicated
CPT/HCPCS: 94060; 94761

== ENCOUNTER 2020-03-08 11:08 | Inpatient (IN) | payer MEDICAID, MEDICARE, OTHER ==
[2020-03-08 11:54] LABS: ABSOLUTE EOSINOPHILS # (AUTO) 0.2 10^3/uL (0.0-0.6); ABSOLUTE LYMPHOCYTES (AUTO) 1.3 10^3/uL (0.5-4.7); ABSOLUTE MONOCYTES (AUTO) 0.9 10^3/uL (0.1-1.4); ABSOLUTE NEUT (AUTO) 9.9 10^3/uL (1.7-8.2); BASOPHILS % (AUTO) 0.3 % (0-2); EOSINOPHILS % (AUTO) 1.5 % (0-6); HEMATOCRIT 43.5 % (36.0-47.0); HEMOGLOBIN 14.8 g/dL (12.0-15.5); LYMPHOCYTES % (AUTO) 10.3 % (13-45); MEAN CORPUSCULAR HEMOGLOBIN 31.2 pg (27.0-33.4); MEAN CORPUSCULAR HGB CONC 34.1 g/dL (32.0-36.0); MEAN CORPUSCULAR VOLUME 92 fl (80-97); PLATELET COUNT 232 10^3/uL (150-450); RED BLOOD COUNT 4.76 10^6/uL (3.72-5.28); RED CELL DISTRIBUTION WIDTH 13.6 % (11.5-14.0); SEGMENTED NEUTROPHILS % (AUTO) 80.9 % (42-78); TOTAL CELLS COUNTED % (AUTO) 100 %; WHITE BLOOD COUNT 12.3 10^3/uL (4.0-10.5)
[2020-03-08 12:13] LABS: ALBUMIN 4.4 g/dL (3.5-5.0); ALKALINE PHOSPHATASE 84 U/L (38-126); ANION GAP 9 (5-19); ASPARTATE AMINO TRANSFERASE 25 U/L (14-36); BILIRUBIN,DIRECT 0.2 mg/dL (0.0-0.4); BILIRUBIN,TOTAL 1.4 mg/dL (0.2-1.3); BLOOD UREA NITROGEN 9 mg/dL (7-20); CALCIUM 9.7 mg/dL (8.4-10.2); CARBON DIOXIDE 25 mmol/L (22-30); CHLORIDE 106 mmol/L (98-107); GLUCOSE 103 mg/dL (75-110); POTASSIUM 3.7 mmol/L (3.6-5.0); TOTAL PROTEIN 7.5 g/dL (6.3-8.2)
--- NOTE | 2020-03-08 12:47 | ER Document Report ---
ED General - General Chief Complaint: Hip Pain Stated Complaint: HIP PAIN Time Seen by Provider: 03/08/20 12:38 Mode of Arrival: Medic Information source: Patient Notes: 64-year-old female patient presenting to the emergency department chief complaint of recurrent falls. Patient reports over the last few days she has fallen multiple times. Patient reports when she fell today she believes that she hurt her left hip and her left ribs. Patient reports she did have a hip fracture a few years ago, she did not require any surgical intervention for this. She states that the pain is severe. She states that before she fell she gets very dizzy, she denies the room spinning around her. She does not have a primary care provider, she did see someone a few months ago but she does not know the name. She denies usage of any prescription medications. TRAVEL OUTSIDE OF THE [place] IN LAST 30 DAYS: No - Related Data Allergies/Adverse Reactions: No Known Allergies Allergy (Unverified 03/08/20 12:39) Past Medical History - General Information source: Patient - Social History Smoking Status: Former Smoker Frequency of alcohol use: None Drug Abuse: None Family History: CAD, COPD - Past Medical History Cardiac Medical History: Reports: Hx Hypertension Neurological Medical History: Denies: Hx Seizures Renal/ Medical History: Denies: Hx Peritoneal Dialysis Psychiatric Medical History: Denies: Hx Depression Past Surgical History: Denies: Hx Hysterectomy Review of Systems - Review of Systems Constitutional: Other - Dizziness EENT: No symptoms reported Cardiovascular: Dizziness Respiratory: No symptoms reported Gastrointestinal: No symptoms reported Genitourinary: No symptoms reported Female Genitourinary: No symptoms reported Musculoskeletal: See HPI Skin: No symptoms reported Hematologic/Lymphatic: No symptoms reported Neurological/Psychological: No symptoms reported Physical Exam - Vital signs Vitals: Temp Pulse Resp BP Pulse Ox 98.2 F 96 18 118/78 97 03/08/20 11:22 03/08/20 11:22 03/08/20 11:22 03/08/20 11:22 03/08/20 11:22 - Notes Notes: PHYSICAL EXAMINATION: GENERAL: Well-appearing, well-nourished and in mild distress. HEAD: Atraumatic, normocephalic. EYES: Pupils equal round and reactive to light, extraocular movements intact, conjunctiva are normal. ENT: Nares patent, oropharynx clear without exudates. Moist mucous membranes. NECK: Normal range of motion, supple without lymphadenopathy LUNGS: Breath sounds clear to auscultation bilaterally and equal. No wheezes rales or rhonchi. HEART: Regular rate and rhythm without murmurs ABDOMEN: Soft, nontender, nondistended abdomen. No guarding, no rebound. No masses appreciated. Female : deferred Musculoskeletal: Normal range of motion, no pitting or edema. Tenderness with palpation of the left hip. No obvious shortening or deformity. Peripheral pulses strong. Normal temperature. NEUROLOGICAL: Cranial nerves grossly intact. Normal speech. Normal sensory, motor exams PSYCH: Normal mood, normal affect. SKIN: Warm, Dry, normal turgor, no rashes or lesions noted. Course - Re-evaluation Re-evalutation: 03/08/20 14:32 Paged on-call orthopedic surgeon rotary operator. 03/08/20 14:[address] Celeste, he will review the images and return my phone call. Dr. Celeste returned by phone call, due to patient's history of encephalopathy and altered mental status and the fact that she does not have routine primary care he would like the patient to be admitted by the hospitalist. I did call and speak with the hospitalist. Dr. Moore agrees to admit the patient. Dr. Celeste will do surgery tomorrow morning as long as patient is medically cleared to do so. Patient's lab work today overall has been unremarkable. It does look like she has a mild urinary tract infection on her urinalysis. This was discussed with Dr. Moore . - Vital Signs Vital signs: Temp Pulse Resp BP Pulse Ox 98.2 F 96 19 163/62 H 95 03/08/20 11:46 03/08/20 11:22 03/08/20 14:01 03/08/20 14:00 03/08/20 14:01 - Laboratory Result Diagrams: 03/08/20 11:35 03/08/20 11:35 Laboratory results interpreted by me: 03/08/20 03/08/20 03/08/20 11:35 11:35 14:30 WBC 12.3 H Lymph % (Auto) 10.3 L Absolute Neuts (auto) 9.9 H Seg Neutrophils % 80.9 H Creatinine 0.50 L Total Bilirubin 1.4 H Urine Protein 30 H Urine Nitrite POSITIVE H Urine Urobilinogen 2.0 H - Diagnostic Test Radiology reviewed: Image reviewed, Reports reviewed - EKG Interpretation by Me Additional EKG results interpreted by me: 03/08/20 16:26 EKG reviewed by me shows a sinus rhythm, rate of 88, normal axis, normal intervals. No T wave inversions. No ST segment elevations or depressions to suggest ischemia. This was compared with previous EKG on file from 2019, there is no acute changes. Discharge - Discharge Clinical Impression: Recurrent falls Hip fracture, left Qualifiers: Encounter type: initial encounter Fracture type: closed Qualified Code(s): S72.002A - Fracture of unspecified part of neck of left femur, initial encounter for closed fracture Condition: Stable Disposition: ADMITTED INPATIENT Admitting Provider: Teresa (Hospitalist) Unit Admitted: Medical Floor
[2020-03-08] MEDS: FENTANYL CITRATE INJ/PF 100 MCG/2 ML AMPUL IV ONE (13:03)
--- NOTE | 2020-03-08 13:54 | RADIOLOGY REPORT (SQ) ---
EXAM DESCRIPTION: RIBS LEFT W/PA CHEST IMAGES COMPLETED DATE/TIME: 03/08/2020 1:29 pm REASON FOR STUDY: fall/L anterior rib pain COMPARISON: PA and lateral views of the chest from 03/31/2019. TECHNIQUE: Frontal view of the chest and additional views of the left ribs acquired. NUMBER OF VIEWS: Three views. LIMITATIONS: None. FINDINGS: FRONTAL CXR: The cardiomediastinal silhouette and pulmonary vasculature are within normal limits. There is no consolidation, pleural effusion or pneumothorax. RIBS: Chronic appearing fracture deformities of the posterolateral left 3rd and 4th ribs. OTHER: No other finding. IMPRESSION: Chronic appearing fracture deformities of the posterolateral left 3rd and 4th ribs. COMMENT: SITE OF TRAUMA/COMPLAINT MARKED/STAMP COMPLETED: NO. TECHNICAL DOCUMENTATION: JOB ID: [id number] 2010 [employer]- All Rights Reserved Reading location - IP/workstation name: [email or web address]
--- NOTE | 2020-03-08 13:56 | RADIOLOGY REPORT (SQ) ---
EXAM DESCRIPTION: CT PELVIS WITHOUT IMAGES COMPLETED DATE/TIME: 03/08/2020 1:26 pm REASON FOR STUDY: L hip pain s/p fall COMPARISON: None. TECHNIQUE: CT scan of the pelvis performed without intravenous or oral contrast. Images reviewed wi th soft tissue and bone windows. Reconstructed coronal and sagittal MPR images reviewed. All images stored on PACS. All CT scanners at this facility use dose modulation, iterative reconstruction, and/or weight based d osing when appropriate to reduce radiation dose to as low as reasonably achievable (ALARA). [facility]: Dose Right [facility]: CareDose [facility]: Dose Right [facility]: Teradose 4D [facility]: Smart AppDevy RADIATION DOSE: CT Rad equipment meets quality standard of care and radiation dose reduction techniq ues were employed. CTDIvol: 10.3 mGy. DLP: 386 mGy-cm. mGy. LIMITATIONS: None. FINDINGS: PELVIC BONES: No acute fracture. No worrisome bone lesions. VISUALIZED SPINE: No acute findings. HIP(S): Subcapital fracture of the left femoral neck. PELVIC SOFT TISSUES: No significant findings. EXTRAPELVIC SOFT TISSUES: No significant findings. OTHER: No other significant finding. IMPRESSION: Subcapital fracture of the left femoral neck. TECHNICAL DOCUMENTATION: JOB ID: [id number] Quality ID # [id number]: Final reports with documentation of one or more dose reduction techniques (e.g., Au tomated exposure control, adjustment of the mA and/or kV according to patient size, use of iterative reconstruction technique) 2010 [employer]- All Rights Reserved Reading location - IP/workstation name: [email or web address]
[2020-03-08 14:44] LABS: APPEARANCE,URINE SLIGHTLY-CLOUDY; BILIRUBIN,URINE NEGATIVE (NEGATIVE); COLOR,URINE YELLOW; GLUCOSE, URINE NEGATIVE (NEGATIVE); KETONES,URINE NEGATIVE (NEGATIVE); LEUKOCYTE ESTERASE,URINE NEGATIVE (NEGATIVE); NITRITE,URINE POSITIVE (NEGATIVE); PROTEIN,URINE 30 mg/dL (NEGATIVE); URINE SPECIFIC GRAVITY 1.014
[2020-03-08] MEDS ORDERED: ONDANSETRON HCL INJ/PF 4 MG/2 ML SDV IV PRN (16:19)
[2020-03-08] MEDS ORDERED: DEXTROSE 40% GEL 15 GM TUBE PO PRN ×2 (16:19)
[2020-03-08] MEDS ORDERED: DEXTROSE 50%-WATER 25 GM/50 ML DISP.SYRIN IV PRN ×2 (16:19)
[2020-03-08] MEDS ORDERED: GLUCAGON,HUMAN RECOMB 1 MG INJ SUBCUT PRN (16:19)
[2020-03-08] MEDS ORDERED: MAG HYDROX/AL HYDROX/SIMETH SUSP 30 ML UDCUP PO PRN (16:19)
[2020-03-08] MEDS ORDERED: MAGNESIUM HYDROXIDE SUSP 30 ML UDCUP PO PRN (16:19)
--- NOTE | 2020-03-08 16:41 | PDOC H&P ---
History of Present Illness Admission Date/PCP: 03/08/20 16:04 Patient complains of: Fall with left hip pain History of Present Illness: JACOBY HERNANDEZ is a 64 year old female who reports having had several falls lately. On this instance she stood up from sitting became lightheaded and fell to the floor. She insists that she did not lose consciousness. She does state that she hit the back of her head. At that point she had left hip pain. She is unable to ambulate. On exam she was found to have a left intertrochanteric fracture. Her only medical history is hypertension and hypokalemia. She has had a cervical spine fracture that required placement of a halo but no fusion. She in fact is resting quite comfortably. Surprisingly she has her left leg c rossed over her right leg. Vital signs are stable. Laboratory studies are unremarkable. Past Medical History Cardiac Medical History: Reports: Hypertension Neurological Medical History: Denies: Seizures Psychiatric Medical History: Denies: Depression Past Surgical History Past Surgical History: Reports: Other - Reports placement of halo for cervical spine fracture Denies: Hysterectomy Social History Information Source: Patient, [facility] Records Lives with: Alone Smoking Status: Current Every Day Smoker Cigarettes Packs Per Day: 2 Electronic Cigarette use?: No Frequency of Alcohol Use: Rare Hx Recreational Drug Use: No Drugs: None Hx Prescription Drug Abuse: No - Advance Directive Resuscitation Status: Do Not Resuscitate Family History Family History: CAD, COPD, Malignancy Parental Family History Reviewed: Yes Children Family History Reviewed: Yes Sibling(s) Family History Reviewed.: NA Medication/Allergy Home Medications: Aspirin [Adult Low Dose Aspirin EC] 81 mg PO DAILY 03/08/20 Allergies/Adverse Reactions: No Known Allergies Allergy (Unverified 03/08/20 12:39) Review of Systems All systems: reviewed and no additional remarkable complaints except as stated Constitutional: PRESENT: weight loss Eyes: PRESENT: visual disturbances - Bilateral cataracts Musculoskeletal: PRESENT: other - Polyarthralgias Integumentary: PRESENT: other - Multiple small scabs from picking Psychiatric: PRESENT: anxiety Physical Exam Vital Signs: Temp Pulse Resp BP Pulse Ox 98.2 F 96 19 163/62 H 95 03/08/20 11:46 03/08/20 11:22 03/08/20 14:01 03/08/20 14:00 03/08/20 14:01 Intake & Output 03/07/20 03/08/20 03/09/20 06:59 06:59 06:59 Weight 46.4 kg General appearance: PRESENT: no acute distress, cooperative, thin, well- developed Head exam: PRESENT: atraumatic, normocephalic Eye exam: PRESENT: conjunctiva pink, EOMI, PERRLA. ABSENT: conjunctival injection, scleral icterus Ear exam: PRESENT: normal external ear exam. ABSENT: bleeding, drainage Mouth exam: PRESENT: moist, tongue midline Teeth exam: ABSENT: edentulous Neck exam: PRESENT: carotid bruit - bilateral. ABSENT: JVD, lymphadenopathy Respiratory exam: PRESENT: clear to auscultation opal, symmetrical, unlabored. ABSENT: accessory muscle use, rales, rhonchi, tachypnea, wheezes Cardiovascular exam: PRESENT: RRR, +S1, +S2. ABSENT: bradycardia, diastolic murmur, irregular rhythm, systolic murmur, tachycardia Pulses: PRESENT: normal radial pulses, normal dorsalis pedis pul GI/Abdominal exam: PRESENT: normal bowel sounds, soft. ABSENT: distended, guarding, tenderness Rectal exam: PRESENT: deferred Gentrourinary exam: PRESENT: indwelling catheter Extremities exam: ABSENT: pedal edema Musculoskeletal exam: PRESENT: normal inspection, other - resting with legs crossed in no discomfort. ABSENT: ambulatory, deformity, dislocation Neurological exam: PRESENT: alert, awake, oriented to person, oriented to place, oriented to time, oriented to situation, CN II-XII grossly intact - except vision. Bilat cataracts. ABSENT: altered Psychiatric exam: PRESENT: appropriate affect. ABSENT: agitated, anxious Focused psych exam: ABSENT: delusional, paranoid, restlessness Skin exam: PRESENT: dry, normal color, other - multiple small scabs on arms from scratching Results Laboratory Results: 03/08/20 11:35 03/08/20 11:35 03/08/20 03/08/20 03/08/20 11:35 11:35 14:30 WBC 12.3 H RBC 4.76 Hgb 14.8 Hct 43.5 MCV 92 MCH 31.2 MCHC 34.1 RDW 13.6 Plt Count 232 Seg Neutrophils % 80.9 H Sodium 140.2 Potassium 3.7 Chloride 106 Carbon Dioxide 25 Anion Gap 9 BUN 9 Creatinine 0.50 L Est GFR ( Amer) > 60 Glucose 103 Calcium 9.7 Total Bilirubin 1.4 H AST 25 Alkaline Phosphatase 84 Total Protein 7.5 Albumin 4.4 Urine Color YELLOW Urine Appearance SLIGHTLY-CLOUDY Urine pH 8.0 Ur Specific [place] 1.014 Urine Protein 30 H Urine Glucose (UA) NEGATIVE Urine Ketones NEGATIVE Urine Blood NEGATIVE Urine Nitrite POSITIVE H Ur Leukocyte Esterase NEGATIVE Urine WBC (Auto) 4 Urine RBC (Auto) 1 03/08/20 11:35 Troponin I < 0.012 Impressions: Pelvis CT 03/08/20 12:46 IMPRESSION: Subcapital fracture of the left femoral neck. Ribs w/Chest X-Ray 03/08/20 12:46 IMPRESSION: Chronic appearing fracture deformities of the posterolateral left 3rd and 4th ribs. Assessment and Plan - Diagnosis (1) Hip fracture, left Qualifiers: Encounter type: initial encounter Fracture type: closed Qualified Code(s): S72.002A - Fracture of unspecified part of neck of left femur, initial encounter for closed fracture Is this a current diagnosis for this admission?: Yes Plan: The patient sustained a left intertrochanteric fracture from a fall. She will have surgical repair tomorrow. She is medically cleared for surgery. We will check preop labs including INR in the morning. She does understand that her CODE STATUS will be full code for her surgery and then she can return to DNR status afterwards. (2) Hypertension Qualifiers: Hypertension type: essential hypertension Qualified Code(s): I10 - Essential (primary) hypertension Is this a current diagnosis for this admission?: Yes Plan: Blood pressures are slightly elevated. This could be due to pain. I have initiated lisinopril 10 mg daily as well as metoprolol succinate 12.5 mg daily. Will monitor vital signs. (3) Recurrent falls Is this a current diagnosis for this admission?: Yes Plan: Possibly due to volume depletion. She states that she drinks 2 pots of coffee a day and only has 2 glasses of water. She cannot stand but we will check laying and sitting pulse and pressure tonight and tomorrow. She is getting IV fluids as well. (4) Tobacco abuse Is this a current diagnosis for this admission?: Yes Plan: The patient smokes 2 packs of cigarettes daily. I have ordered a transdermal nicotine patch 21 mg to be applied daily. (5) Anxiety Is this a current diagnosis for this admission?: Yes Plan: The patient finally admits to anxiety. Lorazepam will be available as needed. She seems quite comfortable and relaxed at this point. - Plan Summary Summary: The patient is stable for surgery. Planned open reduction internal fixation tomorrow. The patient will need skilled rehab. She will likely be ready to transfer on Wednesday or Wednesday. - Time Time Spent with patient: 35 or more minutes Medications reviewed and adjusted accordingly: Yes Anticipated Discharge Disposition: [facility] Facility Anticipated Discharge Timeframe: 96 hours - Inpatient Certification Based on my medical assessment, after consideration of the patient's comorbidities, presenting symptoms, or acuity I expect that the services needed warrant INPATIENT care.: Yes I certify that my determination is in accordance with my understanding of Medicare's requirements for reasonable and necessary INPATIENT services [42 CFR 412.3e].: Yes Medical Necessity: Need For IV Fluids, Need for Surgery
[2020-03-08] MEDS: NICOTINE 21 MG/24 HR PATCH.TD24 TD SCH (16:59)
[2020-03-08] MEDS: RINGERS SOLUTION,LACTATED 1,000 ML IV PRN (17:01)
--- NOTE | 2020-03-08 17:12 | RADIOLOGY REPORT (SQ) ---
EXAM DESCRIPTION: HIP LEFT AP/LATERAL IMAGES COMPLETED DATE/TIME: 03/08/2020 5:02 pm REASON FOR STUDY: pre-op COMPARISON: None. NUMBER OF VIEWS: Two views. TECHNIQUE: AP pelvis and additional frog legview of the left hip. LIMITATIONS: None. FINDINGS: MINERALIZATION: Normal. LEFT HIP: Impacted subcapital fracture of the femoral neck. RIGHT HIP: No fracture or dislocation. No worrisome bone lesions. Limited views. PUBIS AND ISCHIUM: No fracture. PELVIS: No fracture. SACRUM: No fracture or dislocation. No worrisome bone lesions. LOWER LUMBAR SPINE: No fracture or dislocation. No worrisome bone lesions. No significant disc disea se. SOFT TISSUES: No findings. OTHER: No other significant finding. IMPRESSION: Impacted subcapital fracture of the left femoral neck. TECHNICAL DOCUMENTATION: JOB ID: [id number] 2010 [employer]- All Rights Reserved Reading location - IP/workstation name: [email or web address]
[2020-03-08] MEDS: ACETAMINOPHEN 325 MG TABLET PO PRN (20:17)
[2020-03-08] MEDS: DOCUSATE SODIUM 100 MG CAPSULE PO SCH (20:27)
[2020-03-08] MEDS ORDERED: LORAZEPAM INJ 2 MG/1 ML VIAL IV PRN (20:42)
--- NOTE | 2020-03-08 21:05 | EKG REPORT ---
SEVERITY:- ABNORMAL ECG - SINUS RHYTHM PROBABLE LEFT ATRIAL ABNORMALITY PROBABLE LEFT VENTRICULAR HYPERTROPHY BORDERLINE T ABNORMALITIES, INFERIOR LEADS : Confirmed by: Gala Garvey 08-Mar-2020 21:04:26
[2020-03-08] MEDS: HEPARIN SOD (PORCINE) 5,000 UNIT/ML 1 ML VIAL SUBCUT SCH (22:09)
[2020-03-08] MEDS: FAMOTIDINE 20 MG TABLET PO SCH (22:09)
[2020-03-08] MEDS ORDERED: MORPHINE SULFATE 10 MG/ML INJ IV PRN ×3 (22:19→22:40)
--- NOTE | 2020-03-08 23:13 | RADIOLOGY REPORT (SQ) ---
BILATERAL CAROTID ARTERY ULTRASOUND: 03/08/2020 10:08 PM CDT TECHNIQUE: Grayscale, color, and spectral evaluation of the carotid arteries was performed. COMPARISON: None available CLINICAL HISTORY: 64-year old patient with carotid bruits. TECHNIQUE: [place]-scale, duplex and color Doppler images of the carotid systems are obtained bilaterally. (Validated velocity measurements with angiographic measurements - Velocity criteria are extrapolated from diameter data as defined by the Society of Radiologists in Ultrasound Consensus Conference, Radiology 2003; 229; 340 - 346.) FINDINGS: There is moderate right and severe left atherosclerotic plaque and intimal thickening is seen within both carotid bulbs as well as the proximal internal and external carotid arteries. Spectral analysis demonstrates peak systolic and end-diastolic velocities as follows: RIGHT: CCA: 92.8 cm/s, 15.7 cm/s Proximal ICA: 107 cm/s, 24.5 cm/s Mid ICA: Not visualized Distal ICA: 143 cm/s, 42.1 cm/s LEFT: CCA: 77.7 cm/s, 33.2 cm/s Proximal ICA: 200 cm/s, 95.4 cm/s Mid ICA: 336 cm/s, 163 cm/s Distal ICA: 134 cm/s, 64.6 cm/s The ICA:CCA ratio on the right is 1.32, and on the left is 5.23. There is antegrade flow in both vertebral arteries. IMPRESSION: There are findings suggestive of a greater than 69% stenosis at the left internal carotid artery and a 50-69% stenosis or possibly greater at the right internal carotid artery.
[2020-03-09] MEDS: RINGERS SOLUTION,LACTATED 1,000 ML IV PRN ×3 (04:09→18:52)
[2020-03-09] MEDS: HEPARIN SOD (PORCINE) 5,000 UNIT/ML 1 ML VIAL SUBCUT SCH ×3 (05:03→21:35)
[2020-03-09 06:18] LABS: HEMATOCRIT 40.2 % (36.0-47.0); HEMOGLOBIN 13.7 g/dL (12.0-15.5); MEAN CORPUSCULAR HEMOGLOBIN 31.5 pg (27.0-33.4); MEAN CORPUSCULAR HGB CONC 34.2 g/dL (32.0-36.0); MEAN CORPUSCULAR VOLUME 92 fl (80-97); PLATELET COUNT 188 10^3/uL (150-450); RED BLOOD COUNT 4.37 10^6/uL (3.72-5.28); RED CELL DISTRIBUTION WIDTH 13.2 % (11.5-14.0); WHITE BLOOD COUNT 11.1 10^3/uL (4.0-10.5)
[2020-03-09 06:28] LABS: INTERNATIONAL RATION (INR) 1.11; PROTHROMBIN TIME 14.5 SEC (11.4-15.4)
[2020-03-09 06:34] LABS: ANION GAP 8 (5-19); BLOOD UREA NITROGEN 9 mg/dL (7-20); CARBON DIOXIDE 27 mmol/L (22-30); CHLORIDE 107 mmol/L (98-107); GLUCOSE 104 mg/dL (75-110); POTASSIUM 3.4 mmol/L (3.6-5.0)
--- NOTE | 2020-03-09 07:30 | PDOC CONSULTATION ---
Consultation Consult Date: 03/09/20 Attending physician:: MANDY PRIEST Provider Consulted: NIALL DUNBAR Consult reason:: Left hip impacted femoral neck fracture History of Present Illness Admission Date/PCP: 03/08/20 16:04 Patient complains of: Left hip pain following a fall at home History of Present Illness: JACOBY HERNANDEZ is a 64 year old female with a history of multiple falls. She presented to the emergency department last evening following a low-energy fall complaining of pain in her left hip. Radiographic evaluation demonstrated an impacted fracture of the left femoral neck. Past Medical History Cardiac Medical History: Reports: Hypertension EENT Medical History: Reports: Cataracts Neurological Medical History: Denies: Seizures Psychiatric Medical History: Denies: Depression Past Surgical History Past Surgical History: Reports: Other - Reports placement of halo for cervical spine fracture Denies: Hysterectomy Social History Lives with: Alone Smoking Status: Current Every Day Smoker Cigarettes Packs Per Day: 2 Electronic Cigarette use?: No Frequency of Alcohol Use: Rare Hx Recreational Drug Use: No Drugs: None Hx Prescription Drug Abuse: No - Advance Directive Resuscitation Status: Do Not Resuscitate Family History Family History: CAD, COPD, Malignancy Parental Family History Reviewed: No Children Family History Reviewed: No Sibling(s) Family History Reviewed.: No Medication/Allergy Home Medications: Aspirin [Adult Low Dose Aspirin EC] 81 mg PO DAILY 03/08/20 Allergies/Adverse Reactions: No Known Allergies Allergy (Unverified 03/08/20 12:39) Review of Systems ROS unobtainable: Other - As per HPI Physical Exam Vital Signs: Temp Pulse Resp BP Pulse Ox 97.8 F 83 18 153/59 H 96 03/08/20 23:48 03/08/20 23:48 03/08/20 23:48 03/08/20 23:48 03/08/20 23:48 Intake & Output 03/08/20 03/09/20 03/10/20 06:59 06:59 06:59 Intake Total 1000 Output Total 900 Balance 100 Weight 46.5 kg General appearance: PRESENT: no acute distress Head exam: PRESENT: atraumatic, normocephalic Eye exam: PRESENT: EOMI Mouth exam: PRESENT: moist, neck supple Neck exam: PRESENT: carotid bruit, full ROM Respiratory exam: PRESENT: clear to auscultation opal. ABSENT: rales, rhonchi, wheezes Cardiovascular exam: PRESENT: RRR. ABSENT: diastolic murmur, rubs, systolic murmur Pulses: PRESENT: +2 pedal pulses bilateral GI/Abdominal exam: PRESENT: soft Rectal exam: PRESENT: deferred Musculoskeletal exam: PRESENT: other - There is normal alignment of the left leg. There is discomfort in the groin with gentle hip rotation. Patient is able to dorsiflex and plantarflex the foot. Sensation is intact to touch. 2+ DP and PT pulses. Results Laboratory Results: 03/09/20 06:06 03/09/20 06:06 03/08/20 03/08/20 03/08/20 11:35 11:35 14:30 WBC 12.3 H RBC 4.76 Hgb 14.8 Hct 43.5 MCV 92 MCH 31.2 MCHC 34.1 RDW 13.6 Plt Count 232 Seg Neutrophils % 80.9 H Sodium 140.2 Potassium 3.7 Chloride 106 Carbon Dioxide 25 Anion Gap 9 BUN 9 Creatinine 0.50 L Est GFR ( Amer) > 60 Glucose 103 Calcium 9.7 Magnesium Total Bilirubin 1.4 H AST 25 Alkaline Phosphatase 84 Total Protein 7.5 Albumin 4.4 Urine Color YELLOW Urine Appearance SLIGHTLY-CLOUDY Urine pH 8.0 Ur Specific [place] 1.014 Urine Protein 30 H Urine Glucose (UA) NEGATIVE Urine Ketones NEGATIVE Urine Blood NEGATIVE Urine Nitrite POSITIVE H Ur Leukocyte Esterase NEGATIVE Urine WBC (Auto) 4 Urine RBC (Auto) 1 03/09/20 03/09/20 06:06 06:06 WBC 11.1 H RBC 4.37 Hgb 13.7 Hct 40.2 MCV 92 MCH 31.5 MCHC 34.2 RDW 13.2 Plt Count 188 Seg Neutrophils % Sodium 141.7 Potassium 3.4 L Chloride 107 Carbon Dioxide 27 Anion Gap 8 BUN 9 Creatinine 0.47 L Est GFR ( Amer) > 60 Glucose 104 Calcium 9.0 Magnesium 1.7 Total Bilirubin AST Alkaline Phosphatase Total Protein Albumin Urine Color Urine Appearance Urine pH Ur Specific [place] Urine Protein Urine Glucose (UA) Urine Ketones Urine Blood Urine Nitrite Ur Leukocyte Esterase Urine WBC (Auto) Urine RBC (Auto) 03/08/20 11:35 Troponin I < 0.012 Impressions: Carotid Doppler Study 03/08/20 00:00 IMPRESSION: There are findings suggestive of a greater than 69% stenosis at the left internal carotid artery and a 50-69% stenosis or possibly greater at the right internal carotid artery. Pelvis CT 03/08/20 12:46 IMPRESSION: Subcapital fracture of the left femoral neck. Ribs w/Chest X-Ray 03/08/20 12:46 IMPRESSION: Chronic appearing fracture deformities of the posterolateral left 3rd and 4th ribs. Hip X-Ray 03/08/20 16:37 IMPRESSION: Impacted subcapital fracture of the left femoral neck. Assessment & Plan - Diagnosis (1) Closed midcervical fracture of left femur Qualifiers: Encounter type: initial encounter Fracture alignment: displaced Qualified Code(s): S72.032A - Displaced midcervical fracture of left femur, initial encounter for closed fracture Is this a current diagnosis for this admission?: Yes - Time Time Spent: 30 to 50 Minutes Anticipated discharge: SNF Anticipated DC Timeframe: within 48 hours - Plan Summary Plan Summary: The patient is a pleasant 64-year-old woman who reports multiple recent falls. She has sustained an impacted fracture of the left femoral neck. I have recommended open reduction with internal fixation of the left hip using an intramedullary device. Risks, benefits, and alternatives were discussed with the patient. An opportunity for questions was provided. All questions were answered to her satisfaction. In particular we discussed the risk of with anesthesia, the risk of infection, the risk of malunion and nonunion, and the possible need for additional surgical procedures. The patient expressed understanding and wishes to proceed.
[2020-03-09] MEDS ORDERED: ONDANSETRON HCL INJ/PF 4 MG/2 ML SDV ONE (07:40)
[2020-03-09] MEDS ORDERED: KETAMINE HCL INJ 500 MG/10 ML VIAL ONE (07:40)
[2020-03-09] MEDS ORDERED: MIDAZOLAM 2 MG/2 ML INJ ONE (07:40)
[2020-03-09] MEDS ORDERED: PROPOFOL INJ 200 MG/20 ML VIAL IV ONE (07:41)
[2020-03-09] MEDS ORDERED: CEFAZOLIN INJ 1 GM VIAL ONE (08:01)
[2020-03-09] MEDS ORDERED: LIDOCAINE 1% INJ-PF (10 MG/ML) 30 ML SDV ONE (08:12)
[2020-03-09] MEDS ORDERED: BUPIVACAINE HCL 0.5 % INJ/PF 30 ML SDV ONE (08:12)
[2020-03-09] MEDS ORDERED: METOPROLOL SUCCINATE 25 MG TAB.SR.24H PO SCH (10:00)
[2020-03-09] MEDS ORDERED: LISINOPRIL 10 MG TABLET PO SCH (10:00)
--- NOTE | 2020-03-09 10:07 | Operative Report ---
Operative Report DATE OF SURGERY: 03/09/20 PREOPERATIVE DIAGNOSIS: Left hip impacted femoral neck fracture POSTOPERATIVE DIAGNOSIS: Same OPERATION: Open reduction internal fixation left impacted femoral neck fracture with gamma intramedullary nail SURGEON: NIALL DUNBAR ANESTHESIA: Spinal COMPLICATIONS: None ESTIMATED BLOOD LOSS: 50 cc PROCEDURE: Indications for procedure: The patient is a pleasant 64-year-old woman who has recently sustained multiple falls. She presented to the emergency department last evening following a fall at home. Evaluation demonstrated an impacted fracture of the left femoral neck. Description of procedure: Following the induction of a spinal anesthetic and administration of 2 g of Ancef, the patient was positioned on the fracture table. All bony prominences were padded. Traction was placed on the leg to support the weight of the leg. Image intensification was brought in which confirmed good alignment of the fracture. The left lower extremity was sterilely prepped with ChloraPrep and draped in standard fashion. An incision was made proximal to the greater trochanter. A sharp incision was made through skin with Bovie electrocautery through the subcutaneous tissues. A guidewire was placed at the tip of the greater trochanter and reamed down the canal. The position was checked under image intensification and found to be correct. Reaming over the guidewire was performed. A 10 mm gamma nail was placed down the canal. With the guide for the gamma nail a guidewire was placed centrally within the femoral neck and head. Its position was checked under image intensification. The guidewire was overreamed and a 10.5 x 80 mm lag screw was placed. Compression was performed through the lag screw. Lag screw was then locked dynamically. An additional incision was made distally for distal locking screw. All wounds were irrigated with normal saline. Fascia was reapproximated with 2-0 Vicryl. Subcutaneous tissue was closed with 2-0 Vicryl. Skin was reapproximated with a 3 oh barbed suture and closed with sterile adhesive glue. Sterile dressings were then applied. The patient tolerated the procedure well without complications and was brought recovery in stable condition.
[2020-03-09] MEDS ORDERED: FENTANYL CITRATE INJ/PF 100 MCG/2 ML AMPUL ONE (10:18)
[2020-03-09] MEDS ORDERED: LABETALOL HCL INJ 20 MG/4 ML DISP.SYRIN IV ONE (10:23)
[2020-03-09] MEDS: FENTANYL CITRATE INJ/PF 100 MCG/2 ML AMPUL IV ONE (10:30)
[2020-03-09] MEDS: NICOTINE 21 MG/24 HR PATCH.TD24 TD SCH (12:31)
[2020-03-09] MEDS: DOCUSATE SODIUM 100 MG CAPSULE PO SCH ×2 (12:32→20:09)
[2020-03-09] MEDS: FAMOTIDINE 20 MG TABLET PO SCH ×2 (12:32→21:35)
[2020-03-09] MEDS: MORPHINE SULFATE 10 MG/ML INJ IV PRN ×2 (12:34→20:13)
[2020-03-09] MEDS ORDERED: METOPROLOL TARTRATE PF/INJ 5 MG/5 ML SDV IV PRN (13:35)
--- NOTE | 2020-03-09 13:40 | PDOC PROGRESS REPORT ---
Subjective Progress Note for:: 03/09/20 Subjective:: The patient is resting in bed. She is in the right lateral decubitus position. She states that she is tired. She did have her surgery this morning. She is complaining of left hip pain as well. Reason For Visit: LEFT HIP FRACTURE,HTN,NICOTINE DEPENDENCE,ANXIETY Physical Exam Vital Signs: Temp Pulse Resp BP Pulse Ox 98.9 F 99 12 151/69 H 100 03/09/20 13:28 03/09/20 13:28 03/09/20 13:28 03/09/20 13:28 03/09/20 13:28 Intake & Output 03/08/20 03/09/20 03/10/20 06:59 06:59 06:59 Intake Total 1000 1000 Output Total 900 550 Balance 100 450 Weight 46.5 kg General appearance: PRESENT: cooperative, mild distress, well-developed Ear exam: PRESENT: normal external ear exam. ABSENT: bleeding, drainage Respiratory exam: PRESENT: clear to auscultation opal, symmetrical, unlabored. ABSENT: prolonged expiratory phas, rales, rhonchi, tachypnea, wheezes Cardiovascular exam: PRESENT: RRR, +S1, +S2. ABSENT: bradycardia, diastolic murmur, irregular rhythm, systolic murmur, tachycardia GI/Abdominal exam: PRESENT: hypoactive bowel sounds, soft. ABSENT: distended, tenderness Rectal exam: PRESENT: deferred Extremities exam: PRESENT: other - Dressing left hip. ABSENT: pedal edema Neurological exam: PRESENT: alert, awake, oriented to person, oriented to place, oriented to time, oriented to situation, CN II-XII grossly intact Psychiatric exam: PRESENT: appropriate affect. ABSENT: agitated, anxious Focused psych exam: ABSENT: delusional, paranoid, restlessness Skin exam: PRESENT: dry, warm. ABSENT: rash Results Laboratory Results: 03/09/20 06:06 03/09/20 06:06 03/08/20 03/09/20 03/09/20 14:30 06:06 06:06 WBC 11.1 H RBC 4.37 Hgb 13.7 Hct 40.2 MCV 92 MCH 31.5 MCHC 34.2 RDW 13.2 Plt Count 188 Sodium 141.7 Potassium 3.4 L Chloride 107 Carbon Dioxide 27 Anion Gap 8 BUN 9 Creatinine 0.47 L Est GFR ( Amer) > 60 Glucose 104 Calcium 9.0 Magnesium 1.7 Urine Color YELLOW Urine Appearance SLIGHTLY-CLOUDY Urine pH 8.0 Ur Specific [place] 1.014 Urine Protein 30 H Urine Glucose (UA) NEGATIVE Urine Ketones NEGATIVE Urine Blood NEGATIVE Urine Nitrite POSITIVE H Ur Leukocyte Esterase NEGATIVE Urine WBC (Auto) 4 Urine RBC (Auto) 1 03/08/20 11:35 Troponin I < 0.012 Impressions: Carotid Doppler Study 03/08/20 00:00 IMPRESSION: There are findings suggestive of a greater than 69% stenosis at the left internal carotid artery and a 50-69% stenosis or possibly greater at the right internal carotid artery. Pelvis CT 03/08/20 12:46 IMPRESSION: Subcapital fracture of the left femoral neck. Ribs w/Chest X-Ray 03/08/20 12:46 IMPRESSION: Chronic appearing fracture deformities of the posterolateral left 3rd and 4th ribs. Assessment and Plan - Diagnosis (1) Hip fracture, left Qualifiers: Encounter type: initial encounter Fracture type: closed Qualified Code(s): S72.002A - Fracture of unspecified part of neck of left femur, initial encounter for closed fracture Is this a current diagnosis for this admission?: Yes Plan: The patient sustained a left intertrochanteric fracture from a fall. She will have surgical repair tomorrow. She is medically cleared for surgery. We will check preop labs including INR in the morning. She does understand that her CODE STATUS will be full code for her surgery and then she can return to DNR status afterwards. 03/09/2020-ORIF this morning. Anticipate physical therapy tomorrow. (2) Hypertension Qualifiers: Hypertension type: essential hypertension Qualified Code(s): I10 - Essential (primary) hypertension Is this a current diagnosis for this admission?: Yes Plan: Blood pressures are slightly elevated. This could be due to pain. I have in itiated lisinopril 10 mg daily as well as metoprolol succinate 12.5 mg daily. Will monitor vital signs. 03/09/2020-blood pressure slightly low today but this is likely due to the anesthesia and surgery. She was tachycardic however she was given IV labetalol postoperatively. Her pressures should rebound easily. (3) Recurrent falls Is this a current diagnosis for this admission?: Yes Plan: Possibly due to volume depletion. She states that she drinks 2 pots of coffee a day and only has 2 glasses of water. She cannot stand but we will check laying and sitting pulse and pressure tonight and tomorrow. She is getting IV fluids as well. 919-we will start physical therapy tomorrow. No orthostasis noted on vital signs. (4) Tobacco abuse Is this a current diagnosis for this admission?: Yes Plan: The patient smokes 2 packs of cigarettes daily. I have ordered a transdermal nicotine patch 21 mg to be applied daily. 919-continue nicotine patch (5) Anxiety Is this a current diagnosis for this admission?: Yes Plan: The patient finally admits to anxiety. Lorazepam will be available as needed. She seems quite comfortable and relaxed at this point. 03/09/2020-still tired from surgery. As needed lorazepam is available. (6) Acute cystitis Qualifiers: Hematuria presence: without hematuria Qualified Code(s): N30.00 - Acute cystitis without hematuria Is this a current diagnosis for this admission?: Yes Plan: Urine culture is currently growing gram-negative bacilli. Identification and sensitivities are pending. Continue Ancef for the time being. (7) Hypokalemia Is this a current diagnosis for this admission?: Yes Plan: 03/09/2020-serum potassium was 3.4 today. We will give an IV dose of potassium and check electrolytes tomorrow. - Plan Summary Summary: The patient is stable for surgery. Planned open reduction internal fixation tomorrow. The patient will need skilled rehab. She will likely be ready to transfer on Wednesday or Wednesday. - Time Time Spent with patient: 15-24 minutes Medications reviewed and adjusted accordingly: Yes Anticipated Discharge Disposition: [facility] Anticipated Discharge Timeframe: Within 96 hours
[2020-03-09] MEDS ORDERED: CEFAZOLIN SODIUM 2 GM in DEXTROSE 5%-WATER 100 ML IV SCH (14:00)
[2020-03-09] MEDS ORDERED: LISINOPRIL 10 MG TABLET PO ONE (14:30)
[2020-03-09] MEDS ORDERED: POTASSI CL 20 MEQ/50 ML RIDER 20 MEQ/50 ML RTUPB IV ONE (14:30)
[2020-03-09] MEDS: ASPIRIN 325 MG TABLET, ENT COATED PO SCH (14:51)
--- NOTE | 2020-03-09 16:43 | RADIOLOGY REPORT (SQ) ---
EXAM DESCRIPTION: NO CHG FLUORO; HIP LEFT AP/LATERAL IMAGES COMPLETED DATE/TIME: 03/09/2020 12:54 pm REASON FOR STUDY: LEFT HIP COMPARISON: CT and radiograph FLUOROSCOPY TIME: 0.5 minutes 2 images saved to PACS. TECHNIQUE: Intra-operative images acquired during surgical procedure to evaluate progress. NUMBER OF IMAGES: 2 LIMITATIONS: None. FINDINGS: Internal fixation subcapital fracture. IMPRESSION: IMAGE(S) OBTAINED DURING PROCEDURE. COMMENT: Quality ID [id number]: Final reports for procedures using fluoroscopy that document radiation exp osure indices, or exposure time and number of fluorographic images (if radiation exposure indices are not available) Please consult full operative report of the attending physician for description of the procedure. TECHNICAL DOCUMENTATION: JOB ID: [id number] 2010 [employer]- All Rights Reserved Reading location - IP/workstation name: [email or web address]
--- NOTE | 2020-03-09 16:43 | RADIOLOGY REPORT (SQ) ---
EXAM DESCRIPTION: NO CHG FLUORO; HIP LEFT AP/LATERAL IMAGES COMPLETED DATE/TIME: 03/09/2020 12:54 pm REASON FOR STUDY: LEFT HIP COMPARISON: CT and radiograph FLUOROSCOPY TIME: 0.5 minutes 2 images saved to PACS. TECHNIQUE: Intra-operative images acquired during surgical procedure to evaluate progress. NUMBER OF IMAGES: 2 LIMITATIONS: None. FINDINGS: Internal fixation subcapital fracture. IMPRESSION: IMAGE(S) OBTAINED DURING PROCEDURE. COMMENT: Quality ID [id number]: Final reports for procedures using fluoroscopy that document radiation exp osure indices, or exposure time and number of fluorographic images (if radiation exposure indices are not available) Please consult full operative report of the attending physician for description of the procedure. TECHNICAL DOCUMENTATION: JOB ID: [id number] 2010 [employer]- All Rights Reserved Reading location - IP/workstation name: [email or web address]
[2020-03-09] MEDS: CEFAZOLIN SODIUM 2 GM in DEXTROSE 5%-WATER 100 ML IV SCH (18:51)
[2020-03-09] MEDS ORDERED: ASPIRIN 81 MG TABLET, ENT COATED PO SCH (22:00)
[2020-03-10] MEDS: CEFAZOLIN SODIUM 2 GM in DEXTROSE 5%-WATER 100 ML IV SCH ×2 (03:20→10:33)
[2020-03-10] MEDS: ACETAMINOPHEN 325 MG TABLET PO PRN ×2 (04:49→19:58)
[2020-03-10] MEDS: HEPARIN SOD (PORCINE) 5,000 UNIT/ML 1 ML VIAL SUBCUT SCH ×3 (05:00→22:16)
[2020-03-10 05:12] LABS: HEMATOCRIT 32.3 % (36.0-47.0); MEAN CORPUSCULAR HEMOGLOBIN 32.3 pg (27.0-33.4); MEAN CORPUSCULAR HGB CONC 35.1 g/dL (32.0-36.0); MEAN CORPUSCULAR VOLUME 92 fl (80-97); PLATELET COUNT 147 10^3/uL (150-450); RED BLOOD COUNT 3.51 10^6/uL (3.72-5.28); RED CELL DISTRIBUTION WIDTH 13.4 % (11.5-14.0); WHITE BLOOD COUNT 10.3 10^3/uL (4.0-10.5)
[2020-03-10 05:13] LABS: HEMOGLOBIN 11.3 g/dL (12.0-15.5)
[2020-03-10 05:18] LABS: ANION GAP 5 (5-19); BLOOD UREA NITROGEN 7 mg/dL (7-20); CALCIUM 8.4 mg/dL (8.4-10.2); CARBON DIOXIDE 29 mmol/L (22-30); CHLORIDE 105 mmol/L (98-107); GLUCOSE 108 mg/dL (75-110); POTASSIUM 3.5 mmol/L (3.6-5.0)
--- NOTE | 2020-03-10 07:56 | PDOC PROGRESS REPORT ---
Subjective Progress Note for:: 03/10/20 Subjective:: The patient reports mild postoperative pain. She describes less discomfort with motion. Reason For Visit: LEFT HIP FRACTURE,HTN,NICOTINE DEPENDENCE,ANXIETY Postoperative day #1 status post intramedullary nail fixation of impacted left femoral neck fracture Physical Exam Vital Signs: Temp Pulse Resp BP Pulse Ox 100.0 F 100 16 113/42 L 92 03/09/20 23:50 03/09/20 23:50 03/09/20 23:50 03/09/20 23:50 03/09/20 23:50 Intake & Output 03/09/20 03/10/20 03/11/20 06:59 06:59 06:59 Intake Total 1000 2870 Output Total 900 1800 Balance 100 1070 Weight 46.5 kg 46.5 kg General appearance: PRESENT: no acute distress, well-developed, well-nourished Head exam: PRESENT: atraumatic, normocephalic Respiratory exam: PRESENT: clear to auscultation opal. ABSENT: rales, rhonchi, wheezes Musculoskeletal exam: PRESENT: other - The surgical incisions are intact. The dressings are clean. The patient has minimal discomfort with rotation of the left hip. She is able to dorsiflex and plantarflex the ankle. Sensation is normal. 2+ DP and PT pulses. Results Laboratory Results: 03/10/20 04:50 03/10/20 04:50 03/10/20 03/10/20 04:50 04:50 WBC 10.3 RBC 3.51 L Hgb 11.3 L D Hct 32.3 L MCV 92 MCH 32.3 MCHC 35.1 RDW 13.4 Plt Count 147 L Sodium 138.6 Potassium 3.5 L Chloride 105 Carbon Dioxide 29 Anion Gap 5 BUN 7 Creatinine 0.52 Est GFR ( Amer) > 60 Glucose 108 Calcium 8.4 03/08/20 14:30 Catheterized Urine Urine Culture - Final Escherichia Coli 03/08/20 11:35 Troponin I < 0.012 Impressions: Carotid Doppler Study 03/08/20 00:00 IMPRESSION: There are findings suggestive of a greater than 69% stenosis at the left internal carotid artery and a 50-69% stenosis or possibly greater at the right internal carotid artery. Pelvis CT 03/08/20 12:46 IMPRESSION: Subcapital fracture of the left femoral neck. Ribs w/Chest X-Ray 03/08/20 12:46 IMPRESSION: Chronic appearing fracture deformities of the posterolateral left 3rd and 4th ribs. Fluoroscopy 03/09/20 00:00 IMPRESSION: IMAGE(S) OBTAINED DURING PROCEDURE. Hip X-Ray 03/09/20 00:00 IMPRESSION: IMAGE(S) OBTAINED DURING PROCEDURE. Assessment & Plan - Diagnosis (1) Closed midcervical fracture of left femur Qualifiers: Encounter type: initial encounter Fracture alignment: displaced Qualified Code(s): S72.032A - Displaced midcervical fracture of left femur, initial encounter for closed fracture Is this a current diagnosis for this admission?: Yes - Time Critical Time spent with patient: 15-24 minutes Anticipated Discharge Disposition: Residential Facility Anticipated Discharge Timeframe: within 24 hours - Plan Summary Plan Summary: Postoperative day #1 status post intramedullary nail fixation of impacted left femoral neck fracture Recommendations: 1. Complete 24 hours of perioperative antibiotics 2. ASA/SCD for DVT prophylaxis 3. Continue physical therapy for ambulation training weightbearing as tolerated. 4. Wound closure performed with occlusive surgical glue dressing: Patient may shower when clinically appropriate without restriction. 5. Patient is stable from an orthopedic standpoint for discharge to long-term facility when bed is available.
[2020-03-10] MEDS ORDERED: ASPIRIN 325 MG TABLET PO SCH (10:00)
[2020-03-10] MEDS ORDERED: LISINOPRIL 10 MG TABLET PO SCH (10:00)
[2020-03-10] MEDS ORDERED: METOPROLOL SUCCINATE 25 MG TAB.SR.24H PO SCH (10:00)
[2020-03-10] MEDS ORDERED: POTASSIUM CHLORIDE 10 MEQ TABLET.ER PO SCH (10:00)
[2020-03-10] MEDS: FAMOTIDINE 20 MG TABLET PO SCH ×2 (10:33→22:52)
[2020-03-10] MEDS: ASPIRIN 325 MG TABLET, ENT COATED PO SCH (10:33)
[2020-03-10] MEDS: DOCUSATE SODIUM 100 MG CAPSULE PO SCH ×2 (10:34→17:31)
[2020-03-10] MEDS: NICOTINE 21 MG/24 HR PATCH.TD24 TD SCH (10:34)
[2020-03-10] MEDS ORDERED: CEFAZOLIN 1 GM/D5W RTU 1 GM/50 ML RTUPB IV SCH (12:00)
[2020-03-10] MEDS ORDERED: RINGERS SOLUTION,LACTATED 1,000 ML IV ONE (12:00)
[2020-03-10] MEDS: RINGERS SOLUTION,LACTATED 1,000 ML IV PRN ×2 (15:26→17:32)
[2020-03-10] MEDS: CEFAZOLIN 1 GM/D5W RTU 1 GM/50 ML RTUPB IV SCH ×2 (15:30→22:51)
--- NOTE | 2020-03-10 16:32 | PDOC PROGRESS REPORT ---
Subjective Progress Note for:: 03/10/20 Subjective:: Patient with bradycardia and hypotension. She has been getting fluids. She had not had pain medications since last night. She reports being asymptomatic and that she is used to low blood pressure. When I sat her up she did become lightheaded. Reason For Visit: LEFT HIP FRACTURE,HTN,NICOTINE DEPENDENCE,ANXIETY Physical Exam Vital Signs: Temp Pulse Resp BP Pulse Ox 98.3 F 81 16 82/48 L 91 L 03/10/20 10:39 03/10/20 10:39 03/10/20 10:39 03/10/20 14:30 03/10/20 10:39 Intake & Output 03/09/20 03/10/20 03/11/20 06:59 06:59 06:59 Intake Total 1000 2870 1240 Output Total 900 1800 750 Balance 100 1070 490 Weight 46.5 kg 46.5 kg General appearance: PRESENT: cooperative, mild distress, well-developed Head exam: PRESENT: atraumatic, normocephalic Mouth exam: PRESENT: moist, tongue midline Respiratory exam: PRESENT: clear to auscultation opal, symmetrical, unlabored. ABSENT: rales, rhonchi, tachypnea, wheezes Cardiovascular exam: PRESENT: bradycardia, +S1, +S2. ABSENT: diastolic murmur, irregular rhythm, systolic murmur, tachycardia GI/Abdominal exam: PRESENT: normal bowel sounds, soft. ABSENT: distended, guarding, tenderness Rectal exam: PRESENT: deferred Gentrourinary exam: ABSENT: indwelling catheter Extremities exam: ABSENT: pedal edema Musculoskeletal exam: PRESENT: ambulatory - Stood with physical therapy today Neurological exam: PRESENT: alert, awake, oriented to person, oriented to place, oriented to time, oriented to situation, CN II-XII grossly intact. ABSENT: altered Psychiatric exam: PRESENT: flat affect. ABSENT: agitated, anxious Focused psych exam: ABSENT: delusional, paranoid, restlessness Skin exam: PRESENT: dry, normal color, warm. ABSENT: erythema, rash Results Laboratory Results: 03/10/20 04:50 03/10/20 04:50 03/10/20 03/10/20 04:50 04:50 WBC 10.3 RBC 3.51 L Hgb 11.3 L D Hct 32.3 L MCV 92 MCH 32.3 MCHC 35.1 RDW 13.4 Plt Count 147 L Sodium 138.6 Potassium 3.5 L Chloride 105 Carbon Dioxide 29 Anion Gap 5 BUN 7 Creatinine 0.52 Est GFR ( Amer) > 60 Glucose 108 Calcium 8.4 03/08/20 14:30 Catheterized Urine Urine Culture - Final Escherichia Coli 03/08/20 11:35 Troponin I < 0.012 Impressions: Carotid Doppler Study 03/08/20 00:00 IMPRESSION: There are findings suggestive of a greater than 69% stenosis at the left internal carotid artery and a 50-69% stenosis or possibly greater at the right internal carotid artery. Pelvis CT 03/08/20 12:46 IMPRESSION: Subcapital fracture of the left femoral neck. Ribs w/Chest X-Ray 03/08/20 12:46 IMPRESSION: Chronic appearing fracture deformities of the posterolateral left 3rd and 4th ribs. Fluoroscopy 03/09/20 00:00 IMPRESSION: IMAGE(S) OBTAINED DURING PROCEDURE. Hip X-Ray 03/09/20 00:00 IMPRESSION: IMAGE(S) OBTAINED DURING PROCEDURE. Assessment and Plan - Diagnosis (1) Hip fracture, left Qualifiers: Encounter type: initial encounter Fracture type: closed Qualified Code(s): S72.002A - Fracture of unspecified part of neck of left femur, initial encounter for closed fracture Is this a current diagnosis for this admission?: Yes Plan: The patient sustained a left intertrochanteric fracture from a fall. She will have surgical repair tomorrow. She is medically cleared for surgery. We will check preop labs including INR in the morning. She does understand that her CODE STATUS will be full code for her surgery and then she can return to DNR status afterwards. 03/09/2020-ORIF this morning. Anticipate physical therapy tomorrow. 03/10/2020-still with pain. She did get up with physical therapy. Likely transfer to senior care in 48 hours. (2) Hypertension Qualifiers: Hypertension type: essential hypertension Qualified Code(s): I10 - Essential (primary) hypertension Is this a current diagnosis for this admission?: Yes Plan: Blood pressures are slightly elevated. This could be due to pain. I have initiated lisinopril 10 mg daily as well as metoprolol succinate 12.5 mg daily. Will monitor vital signs. 03/09/2020-blood pressure slightly low today but this is likely due to the anesthesia and surgery. She was tachycardic however she was given IV labetalol postoperatively. Her pressures should rebound easily. 03/10/2020-blood pressure is quite low today. Patient is asymptomatic. She is also bradycardic. She has not had any pain medication yet today. We will give several fluid boluses. (3) Recurrent falls Is this a current diagnosis for this admission?: Yes Plan: Possibly due to volume depletion. She states that she drinks 2 pots of coffee a day and only has 2 glasses of water. She cannot stand but we will check laying and sitting pulse and pressure tonight and tomorrow. She is getting IV fluids as well. 919-we will start physical therapy tomorrow. No orthostasis noted on vital signs. (4) Tobacco abuse Is this a current diagnosis for this admission?: Yes Plan: The patient smokes 2 packs of cigarettes daily. I have ordered a transdermal nicotine patch 21 mg to be applied daily. 9-continue nicotine patch (5) Anxiety Is this a current diagnosis for this admission?: Yes Plan: The patient finally admits to anxiety. Lorazepam will be available as needed. She seems quite comfortable and relaxed at this point. 03/09/2020-still tired from surgery. As needed lorazepam is available. (6) Acute cystitis Qualifiers: Hematuria presence: without hematuria Qualified Code(s): N30.00 - Acute cystitis without hematuria Is this a current diagnosis for this admission?: Yes Plan: Urine culture is currently growing gram-negative bacilli. Identification and sensitivities are pending. Continue Ancef for the time being. 03/10/2020-pansensitive E. coli isolated. Continue Ancef. (7) Hypokalemia Is this a current diagnosis for this admission?: Yes Plan: 03/09/2020-serum potassium was 3.4 today. We will give an IV dose of potassium and check electrolytes tomorrow. 03/10/2020-potassium is only 3.5 today. I will administer 40 mEq of potassium and start 20 mEq twice daily tomorrow. - Plan Summary Summary: The patient is stable for surgery. Planned open reduction internal fixation tomorrow. The patient will need skilled rehab. She will likely be ready to transfer on Wednesday or Wednesday. - Time Time Spent with patient: 15-24 minutes Medications reviewed and adjusted accordingly: Yes Anticipated [facility]charge [facility]position[facility] Anticipated Discharge Timeframe: within 48 hours
[2020-03-10] MEDS ORDERED: POTASSIUM CHLORIDE 10 MEQ TABLET.ER PO ONE (17:30)
--- NOTE | 2020-03-10 20:27 | EKG REPORT ---
SEVERITY:- NORMAL ECG - SINUS RHYTHM : Confirmed by: Gala Garvey 10-Mar-2020 20:27:21
[2020-03-11] MEDS: RINGERS SOLUTION,LACTATED 1,000 ML IV PRN (01:50)
[2020-03-11] MEDS: CEFAZOLIN 1 GM/D5W RTU 1 GM/50 ML RTUPB IV SCH ×4 (04:06→23:49)
[2020-03-11] MEDS: HEPARIN SOD (PORCINE) 5,000 UNIT/ML 1 ML VIAL SUBCUT SCH ×3 (05:00→23:48)
[2020-03-11 06:12] LABS: HEMOGLOBIN 10.9 g/dL (12.0-15.5); MEAN CORPUSCULAR HEMOGLOBIN 31.8 pg (27.0-33.4); MEAN CORPUSCULAR HGB CONC 34.2 g/dL (32.0-36.0); MEAN CORPUSCULAR VOLUME 93 fl (80-97); PLATELET COUNT 166 10^3/uL (150-450); RED BLOOD COUNT 3.43 10^6/uL (3.72-5.28); RED CELL DISTRIBUTION WIDTH 13.1 % (11.5-14.0); WHITE BLOOD COUNT 8.4 10^3/uL (4.0-10.5)
[2020-03-11 06:41] LABS: BLOOD UREA NITROGEN 5 mg/dL (7-20); CALCIUM 8.7 mg/dL (8.4-10.2); GLUCOSE 98 mg/dL (75-110)
[2020-03-11 06:42] LABS: ANION GAP 5 (5-19); CARBON DIOXIDE 30 mmol/L (22-30); CHLORIDE 108 mmol/L (98-107); POTASSIUM 4.5 mmol/L (3.6-5.0)
[2020-03-11] MEDS: ASPIRIN 325 MG TABLET, ENT COATED PO SCH (09:59)
[2020-03-11] MEDS: POTASSIUM CHLORIDE 10 MEQ TABLET.ER PO SCH ×2 (09:59→23:49)
[2020-03-11] MEDS: DOCUSATE SODIUM 100 MG CAPSULE PO SCH ×2 (09:59→17:32)
[2020-03-11] MEDS: NICOTINE 21 MG/24 HR PATCH.TD24 TD SCH (10:00)
[2020-03-11] MEDS ORDERED: MORPHINE SULFATE 10 MG/ML INJ IV PRN (11:00)
--- NOTE | 2020-03-11 11:07 | PDOC PROGRESS REPORT ---
Subjective Progress Note for:: 03/11/20 Subjective:: Patient states that she fell when trying to use the bedside commode. Explained her that she is not to get out of bed without assistance. She stated that she was aware of this. She is not complaining of much left hip pain other than the expected postoperative discomfort but she did state that her left wrist hurts. Reason For Visit: LEFT HIP FRACTURE,HTN,NICOTINE DEPENDENCE,ANXIETY Fall trying to use commode Physical Exam Vital Signs: Temp Pulse Resp BP Pulse Ox 98.5 F 90 17 103/63 93 03/11/20 08:17 03/10/20 23:57 03/10/20 23:57 03/10/20 23:57 03/10/20 23:57 Intake & Output 03/10/20 03/11/20 03/12/20 06:59 06:59 06:59 Intake Total 2870 2380 973 Output Total 1800 2625 Balance 1070 -245 973 Weight 46.5 kg 46.5 kg General appearance: PRESENT: no acute distress, cooperative, well-developed Head exam: PRESENT: atraumatic, normocephalic Respiratory exam: PRESENT: rales - Right base, symmetrical, unlabored. ABSENT: prolonged expiratory phas, rhonchi, tachypnea, wheezes Cardiovascular exam: PRESENT: RRR, +S1, +S2, systolic murmur - 2/6. ABSENT: bradycardia, diastolic murmur, irregular rhythm, tachycardia GI/Abdominal exam: PRESENT: normal bowel sounds, soft. ABSENT: distended, guarding, tenderness Rectal exam: PRESENT: deferred Gentrourinary exam: PRESENT: indwelling catheter Extremities exam: ABSENT: pedal edema Musculoskeletal exam: PRESENT: deformity - Alignment of left wrist is off. The hand deviates towards the radial side. Minimal ecchymosis status post fall, other - Inspection of the left hip reveals intact incisions. No excessive bruising. Normal postop appearance. Neurological exam: PRESENT: alert, awake, oriented to person, oriented to place, oriented to situation, CN II-XII grossly intact, other Psychiatric exam: PRESENT: appropriate affect. ABSENT: agitated, anxious Focused psych exam: ABSENT: delusional, paranoid, restlessness Results Laboratory Results: 03/11/20 05:46 03/11/20 05:47 03/10/20 03/11/20 03/11/20 04:50 05:46 05:47 WBC 8.4 RBC 3.43 L Hgb 10.9 L Hct 32.0 L MCV 93 MCH 31.8 MCHC 34.2 RDW 13.1 Plt Count 166 Sodium 143.3 Potassium 4.5 Chloride 108 H Carbon Dioxide 30 Anion Gap 5 BUN 5 L Creatinine 0.46 L Est GFR ( Amer) > 60 Glucose 98 Calcium 8.7 Magnesium 1.7 2.0 03/08/20 14:30 Catheterized Urine Urine Culture - Final Escherichia Coli 03/08/20 11:35 Troponin I < 0.012 Impressions: Carotid Doppler Study 03/08/20 00:00 IMPRESSION: There are findings suggestive of a greater than 69% stenosis at the left internal carotid artery and a 50-69% stenosis or possibly greater at the right internal carotid artery. Pelvis CT 03/08/20 12:46 IMPRESSION: Subcapital fracture of the left femoral neck. Ribs w/Chest X-Ray 03/08/20 12:46 IMPRESSION: Chronic appearing fracture deformities of the posterolateral left 3rd and 4th ribs. Fluoroscopy 03/09/20 00:00 IMPRESSION: IMAGE(S) OBTAINED DURING PROCEDURE. Hip X-Ray 03/09/20 00:00 IMPRESSION: IMAGE(S) OBTAINED DURING PROCEDURE. Assessment and Plan - Diagnosis (1) Hip fracture, left Qualifiers: Encounter type: initial encounter Fracture type: closed Qualified Code(s): S72.002A - Fracture of unspecified part of neck of left femur, initial encounter for closed fracture Is this a current diagnosis for this admission?: Yes Plan: The patient sustained a left intertrochanteric fracture from a fall. She will have surgical repair tomorrow. She is medically cleared for surgery. We will check preop labs including INR in the morning. She does understand that her CODE STATUS will be full code for her surgery and then she can return to DNR s tatus afterwards. 03/09/2020-ORIF this morning. Anticipate physical therapy tomorrow. 03/10/2020-still with pain. She did get up with physical therapy. Likely transfer to shelter in 48 hours. 03/11/2020-postop day 2 ORIF. Continue to work with physical therapy. The patient did have a fall and I am going to obtain left hip x-rays. (2) Hypertension Qualifiers: Hypertension type: essential hypertension Qualified Code(s): I10 - Essential (primary) hypertension Is this a current diagnosis for this admission?: Yes Plan: Blood pressures are slightly elevated. This could be due to pain. I have initiated lisinopril 10 mg daily as well as metoprolol succinate 12.5 mg daily. Will monitor vital signs. 03/09/2020-blood pressure slightly low today but this is likely due to the anesthesia and surgery. She was tachycardic however she was given IV labetalol postoperatively. Her pressures should rebound easily. 03/10/2020-blood pressure is quite low today. Patient is asymptomatic. She is also bradycardic. She has not had any pain medication yet today. We will give several fluid boluses. 03/11/2020-blood pressure is better today. Will slow the IV fluids. (3) Recurrent falls Is this a current diagnosis for this admission?: Yes Plan: Possibly due to volume depletion. She states that she drinks 2 pots of coffee a day and only has 2 glasses of water. She cannot stand but we will check laying and sitting pulse and pressure tonight and tomorrow. She is getting IV fluids as well. 03/09/2020-we will start physical therapy tomorrow. No orthostasis noted on vital signs. 03/11/2020-unwitnessed fall earlier this morning per the patient. She states she was trying to use the commode. She complains of left wrist pain. No significant pain in the left hip other than expected postop pain. Will obtain x-rays this morning. (4) Tobacco abuse Is this a current diagnosis for this admission?: Yes Plan: The patient smokes 2 packs of cigarettes daily. I have ordered a transdermal nicotine patch 21 mg to be applied daily. 919-continue nicotine patch (5) Anxiety Is this a current diagnosis for this admission?: Yes Plan: The patient finally admits to anxiety. Lorazepam will be available as needed. She seems quite comfortable and relaxed at this point. 03/09/2020-still tired from surgery. As needed lorazepam is available. (6) Acute cystitis Qualifiers: Hematuria presence: without hematuria Qualified Code(s): N30.00 - Acute cystitis without hematuria Is this a current diagnosis for this admission?: Yes Plan: Urine culture is currently growing gram-negative bacilli. Identification and sensitivities are pending. Continue Ancef for the time being. 03/10/2020-pansensitive E. coli isolated. Continue Ancef. 03/11/2020-complete antibiotics as ordered (7) Hypokalemia Is this a current diagnosis for this admission?: Yes Plan: 03/09/2020-serum potassium was 3.4 today. We will give an IV dose of potassium and check electrolytes tomorrow. 03/10/2020-potassium is only 3.5 today. I will administer 40 mEq of potassium and start 20 mEq twice daily tomorrow. 03/11/2020-serum potassium is normal today. Continue to monitor. - Plan Summary Summary: The patient is stable for surgery. Planned open reduction internal fixation tomorrow. The patient will need skilled rehab. She will likely be ready to transfer on Wednesday or Wednesday. - Time Time Spent with patient: 15-24 minutes Medications reviewed and adjusted accordingly: Yes Anticipated Discharge Disposition: Home with Home Health - Currently without insurance coverage for shelter Anticipated Discharge Timeframe: within 72 hours
--- NOTE | 2020-03-11 11:43 | RADIOLOGY REPORT (SQ) ---
EXAM DESCRIPTION: WRIST LEFT 3 VIEWS IMAGES COMPLETED DATE/TIME: 03/11/2020 11:35 am REASON FOR STUDY: Fall, left wrist pain COMPARISON: None. NUMBER OF VIEWS: Three views. TECHNIQUE: AP, lateral, and oblique radiographic images acquired of the left wrist. LIMITATIONS: None. FINDINGS: MINERALIZATION: Normal. BONES: No acute fracture or dislocation. No worrisome bone lesions. Normal alignment. SOFT TISSUES: No soft tissue swelling. No foreign body. OTHER: No other significant finding. IMPRESSION: NEGATIVE STUDY OF THE LEFT WRIST. NO RADIOGRAPHIC EVIDENCE OF ACUTE INJURY. TECHNICAL DOCUMENTATION: JOB ID: [id number] 2010 [employer]- All Rights Reserved Reading location - IP/workstation name: [email or web address]
--- NOTE | 2020-03-11 11:45 | RADIOLOGY REPORT (SQ) ---
EXAM DESCRIPTION: HIP LEFT AP/LATERAL IMAGES COMPLETED DATE/TIME: 03/11/2020 11:35 am REASON FOR STUDY: Fall COMPARISON: 03/08/2020 NUMBER OF VIEWS: Two views. TECHNIQUE: AP and frog-leg view of the left hip. LIMITATIONS: None. FINDINGS: MINERALIZATION: Normal. LEFT HIP: Postsurgical changes now present with internal fixation device in place. OPPOSITE HIP: Unremarkable. SOFT TISSUES: Subcutaneous gas consistent with recent procedure. OTHER: No other significant finding. IMPRESSION: Satisfactory postoperative left hip. COMMENT: Pelvic fractures are often occult on plain radiographs. If strong clinical suspicion for f racture, recommend CT or MR. TECHNICAL DOCUMENTATION: JOB ID: [id number] 2010 [employer]- All Rights Reserved Reading location - IP/workstation name: [email or web address]
[2020-03-11] MEDS: FAMOTIDINE 20 MG TABLET PO SCH ×2 (11:57→23:49)
--- NOTE | 2020-03-11 13:16 | PDOC PROGRESS REPORT ---
Subjective Progress Note for:: 03/11/20 Subjective:: The patient reports falling earlier today when getting out of bed on her own. She is not complaining of any hip pain. She did experience some pain in her wrist following the fall. Radiographs of the hip and the wrist were obtained. There is no complication in the hip from the fall. The wrist is negative for fracture. Reason For Visit: LEFT HIP FRACTURE,HTN,NICOTINE DEPENDENCE,ANXIETY Physical Exam Vital Signs: Temp Pulse Resp BP Pulse Ox 98.1 F 86 16 128/71 H 96 03/11/20 11:04 03/11/20 11:04 03/11/20 11:04 03/11/20 11:04 03/11/20 11:04 Intake & Output 03/10/20 03/11/20 03/12/20 06:59 06:59 06:59 Intake Total 2870 2380 1230 Output Total 1800 2625 825 Balance 1070 -245 405 Weight 46.5 kg 46.5 kg Musculoskeletal exam: PRESENT: other - Examination of the left hip: The surgical incision is intact. There is no evidence of infection. There is no discomfort with range of motion. There is normal motor and sensory examination. Examination of the left wrist: There is normal range of motion of the wrist in flexion, extension, deviation, as well as pronation and supination. There is no discomfort to palpation of Andres's tubercle or the carpus. Sensation is intact. 2+ radial and ulnar pulses. Results Laboratory Results: 03/11/20 05:46 03/11/20 05:47 03/10/20 03/11/20 03/11/20 04:50 05:46 05:47 WBC 8.4 RBC 3.43 L Hgb 10.9 L Hct 32.0 L MCV 93 MCH 31.8 MCHC 34.2 RDW 13.1 Plt Count 166 Sodium 143.3 Potassium 4.5 Chloride 108 H Carbon Dioxide 30 Anion Gap 5 BUN 5 L Creatinine 0.46 L Est GFR ( Amer) > 60 Glucose 98 Calcium 8.7 Magnesium 1.7 2.0 03/08/20 11:35 Troponin I < 0.012 Impressions: Carotid Doppler Study 03/08/20 00:00 IMPRESSION: There are findings suggestive of a greater than 69% stenosis at the left internal carotid artery and a 50-69% stenosis or possibly greater at the right internal carotid artery. Pelvis CT 03/08/20 12:46 IMPRESSION: Subcapital fracture of the left femoral neck. Ribs w/Chest X-Ray 03/08/20 12:46 IMPRESSION: Chronic appearing fracture deformities of the posterolateral left 3rd and 4th ribs. Fluoroscopy 03/09/20 00:00 IMPRESSION: IMAGE(S) OBTAINED DURING PROCEDURE. Hip X-Ray 03/11/20 00:00 IMPRESSION: Satisfactory postoperative left hip. Wrist X-Ray 03/11/20 00:00 IMPRESSION: NEGATIVE STUDY OF THE LEFT WRIST. NO RADIOGRAPHIC EVIDENCE OF ACUTE INJURY. Assessment & Plan - Diagnosis (1) Closed midcervical fracture of left femur Qualifiers: Encounter type: initial encounter Fracture alignment: displaced Qualified Code(s): S72.032A - Displaced midcervical fracture of left femur, initial encounter for closed fracture Is this a current diagnosis for this admission?: Yes (2) Recurrent falls Is this a current diagnosis for this admission?: Yes - Time Critical Time spent with patient: 15-24 minutes Anticipated Discharge Disposition: [facility] Anticipated Discharge Timeframe: within 24 hours - Plan Summary Plan Summary: Postoperative day #2 status post intramedullary nail fixation of impacted femoral neck fracture. The patient has a history of recurrent falls. She fell again today in the hospital. Fortunately, it does not appear that she sustained injury as the result of this fall. Radiographic examinations are normal. The patient is clear for discharge from an orthopedic standpoint. She is we ightbearing as tolerated On the left hip with assist device. She should follow-up in the office 2 weeks following discharge.
[2020-03-11] MEDS ORDERED: HALOPERIDOL LACTATE INJ 5 MG/1 ML VIAL ONE (16:10)
[2020-03-11] MEDS ORDERED: HALOPERIDOL LACTATE INJ 5 MG/1 ML VIAL IM ONE (16:30)
[2020-03-11] MEDS ORDERED: HALOPERIDOL LACTATE INJ 5 MG/1 ML VIAL IV PRN (23:11)
[2020-03-12] MEDS: HEPARIN SOD (PORCINE) 5,000 UNIT/ML 1 ML VIAL SUBCUT SCH ×3 (05:57→22:43)
[2020-03-12] MEDS: CEFAZOLIN 1 GM/D5W RTU 1 GM/50 ML RTUPB IV SCH ×4 (05:57→22:43)
[2020-03-12 06:55] LABS: ABSOLUTE BASOPHILS # (AUTO) 0.1 10^3/uL (0.0-0.2); ABSOLUTE EOSINOPHILS # (AUTO) 0.4 10^3/uL (0.0-0.6); ABSOLUTE LYMPHOCYTES (AUTO) 1.2 10^3/uL (0.5-4.7); ABSOLUTE MONOCYTES (AUTO) 0.7 10^3/uL (0.1-1.4); ABSOLUTE NEUT (AUTO) 5.4 10^3/uL (1.7-8.2); BASOPHILS % (AUTO) 0.8 % (0-2); EOSINOPHILS % (AUTO) 5.5 % (0-6); HEMATOCRIT 33.3 % (36.0-47.0); HEMOGLOBIN 11.4 g/dL (12.0-15.5); LYMPHOCYTES % (AUTO) 15.1 % (13-45); MEAN CORPUSCULAR HEMOGLOBIN 31.8 pg (27.0-33.4); MEAN CORPUSCULAR HGB CONC 34.4 g/dL (32.0-36.0); MEAN CORPUSCULAR VOLUME 92 fl (80-97); PLATELET COUNT 183 10^3/uL (150-450); SEGMENTED NEUTROPHILS % (AUTO) 69.6 % (42-78); TOTAL CELLS COUNTED % (AUTO) 100 %; WHITE BLOOD COUNT 7.8 10^3/uL (4.0-10.5)
[2020-03-12 07:15] LABS: ANION GAP 6 (5-19); BLOOD UREA NITROGEN 7 mg/dL (7-20); CALCIUM 9.2 mg/dL (8.4-10.2); CARBON DIOXIDE 27 mmol/L (22-30); CHLORIDE 106 mmol/L (98-107); GLUCOSE 92 mg/dL (75-110); POTASSIUM 3.8 mmol/L (3.6-5.0)
[2020-03-12] MEDS ORDERED: TUBERCULIN,PURIF.PROT.DERIV. 5 TU/0.1 ML TEST 1 ML VIAL ID ONE (08:00)
[2020-03-12] MEDS: FAMOTIDINE 20 MG TABLET PO SCH ×2 (09:44→22:43)
[2020-03-12] MEDS: POTASSIUM CHLORIDE 10 MEQ TABLET.ER PO SCH ×2 (09:44→22:44)
[2020-03-12] MEDS: ASPIRIN 325 MG TABLET, ENT COATED PO SCH (09:44)
[2020-03-12] MEDS: NICOTINE 21 MG/24 HR PATCH.TD24 TD SCH (09:44)
[2020-03-12] MEDS: DOCUSATE SODIUM 100 MG CAPSULE PO SCH ×2 (09:44→17:26)
--- NOTE | 2020-03-12 11:47 | PDOC PROGRESS REPORT ---
Subjective Progress Note for:: 03/12/20 Subjective:: 64 year old female who reports having had several falls lately. On this instance she stood up from sitting became lightheaded and fell to the floor. She insists that she did not lose consciousness. She does state that she hit the back of her head. At that point she had left hip pain. She is unable to ambulate. On exam she was found to have a left intertrochanteric fracture. Her only medical history is hypertension and hypokalemia. She has had a cervical s pine fracture that required placement of a halo but no fusion. She in fact is resting quite comfortably. Surprisingly she has her left leg crossed over her right leg. Vital signs are stable. Laboratory studies are unremarkable. [id number]-old female admitted with left hip impacted femoral neck fracture. Status post open reduction internal fixation of the left impacted femoral neck fracture with a gamma intramedullary nailing was done on 03/09/20.. Reason For Visit: LEFT HIP FRACTURE,HTN,NICOTINE DEPENDENCE,ANXIETY Physical Exam Vital Signs: Temp Pulse Resp BP Pulse Ox 98.1 F 76 16 132/62 H 95 03/12/20 07:42 03/12/20 07:42 03/12/20 07:42 03/12/20 07:42 03/12/20 07:42 Intake & Output 03/11/20 03/12/20 03/13/20 06:59 06:59 06:59 Intake Total 2380 1498 Output Total 2625 4000 Balance -245 -2502 Weight 46.5 kg 49.8 kg General appearance: PRESENT: no acute distress, thin Head exam: PRESENT: atraumatic Eye exam: PRESENT: PERRLA Mouth exam: PRESENT: moist, tongue midline Teeth exam: PRESENT: poor dentation Neck exam: ABSENT: carotid bruit, JVD, lymphadenopathy, thyromegaly Respiratory exam: PRESENT: decreased breath sounds Cardiovascular exam: PRESENT: RRR. ABSENT: diastolic murmur, rubs, systolic murmur GI/Abdominal exam: PRESENT: normal bowel sounds, soft. ABSENT: distended, guarding, mass, organolmegaly, rebound, tenderness Rectal exam: PRESENT: deferred Extremities exam: PRESENT: full ROM. ABSENT: calf tenderness, clubbing, pedal edema Neurological exam: PRESENT: alert, awake, oriented to person, oriented to place, oriented to time, oriented to situation, CN II-XII grossly intact. ABSENT: motor sensory deficit Psychiatric exam: PRESENT: appropriate affect, normal mood. ABSENT: homicidal ideation, suicidal ideation Results Laboratory Results: 03/12/20 06:09 03/12/20 06:09 03/12/20 03/12/20 06:09 06:09 WBC 7.8 RBC 3.60 L Hgb 11.4 L Hct 33.3 L MCV 92 MCH 31.8 MCHC 34.4 RDW 13.0 Plt Count 183 Seg Neutrophils % 69.6 Sodium 139.3 Potassium 3.8 Chloride 106 Carbon Dioxide 27 Anion Gap 6 BUN 7 Creatinine 0.39 L Est GFR ( Amer) > 60 Glucose 92 Calcium 9.2 Magnesium 1.8 03/08/20 11:35 Troponin I < 0.012 Impressions: Carotid Doppler Study 03/08/20 00:00 IMPRESSION: There are findings suggestive of a greater than 69% stenosis at the left internal carotid artery and a 50-69% stenosis or possibly greater at the right internal carotid artery. Pelvis CT 03/08/20 12:46 IMPRESSION: Subcapital fracture of the left femoral neck. Ribs w/Chest X-Ray 03/08/20 12:46 IMPRESSION: Chronic appearing fracture deformities of the posterolateral left 3rd and 4th ribs. Fluoroscopy 03/09/20 00:00 IMPRESSION: IMAGE(S) OBTAINED DURING PROCEDURE. Hip X-Ray 03/11/20 00:00 IMPRESSION: Satisfactory postoperative left hip. Wrist X-Ray 03/11/20 00:00 IMPRESSION: NEGATIVE STUDY OF THE LEFT WRIST. NO RADIOGRAPHIC EVIDENCE OF ACUTE INJURY. Assessment and Plan - Diagnosis (1) Hip fracture, left Qualifiers: Encounter type: initial encounter Fracture type: closed Qualified Code(s): S72.002A - Fracture of unspecified part of neck of left femur, initial encounter for closed fracture Is this a current diagnosis for this admission?: Yes Plan: The patient sustained a left intertrochanteric fracture from a fall. She will have surgical repair tomorrow. She is medically cleared for surgery. We will check preop labs including INR in the morning. She does understand that her CODE STATUS will be full code for her surgery and then she can return to DNR s tatus afterwards. 03/09/2020-ORIF this morning. Anticipate physical therapy tomorrow. 03/10/2020-still with pain. She did get up with physical therapy. Likely transfer to shelter in 48 hours. 03/11/2020-postop day 2 ORIF. Continue to work with physical therapy. The patient did have a fall and I am going to obtain left hip x-rays. 03/12/20-postop day 3 ORIF. Physical therapy is working with the patient. Waiting for placement. Waiting for the psych evaluation today. (2) Hypertension Qualifiers: Hypertension type: essential hypertension Qualified Code(s): I10 - Essential (primary) hypertension Is this a current diagnosis for this admission?: No Plan: Blood pressures are slightly elevated. This could be due to pain. I have initiated lisinopril 10 mg daily as well as metoprolol succinate 12.5 mg daily. Will monitor vital signs. 03/09/2020-blood pressure slightly low today but this is likely due to the anesthesia and surgery. She was tachycardic however she was given IV labetalol postoperatively. Her pressures should rebound easily. 03/10/2020-blood pressure is quite low today. Patient is asymptomatic. She is also bradycardic. She has not had any pain medication yet today. We will give several fluid boluses. 03/11/2020-blood pressure is better today. Will slow the IV fluids. 03/12/2020-patient has history of chronic essential hypertension. Blood pressure today is 123/63. Stable. (3) Recurrent falls Is this a current diagnosis for this admission?: Yes Plan: Possibly due to volume depletion. She states that she drinks 2 pots of coffee a day and only has 2 glasses of water. She cannot stand but we will check laying and sitting pulse and pressure tonight and tomorrow. She is getting IV fluids as well. 03/09/2020-we will start physical therapy tomorrow. No orthostasis noted on vital signs. 03/11/2020-unwitnessed fall earlier this morning per the patient. She states she was trying to use the commode. She complains of left wrist pain. No significant pain in the left hip other than expected postop pain. Will obtain x-rays this morning. [id number]-patient is waiting for placement. And admitted with left hip fracture status post ORIF. (4) Acute cystitis Qualifiers: Hematuria presence: without hematuria Qualified Code(s): N30.00 - Acute cystitis without hematuria Is this a current diagnosis for this admission?: Yes Plan: Urine culture is currently growing gram-negative bacilli. Identification and sensitivities are pending. Continue Ancef for the time being. 03/10/2020-pansensitive E. coli isolated. Continue Ancef. 03/11/2020-complete antibiotics as ordered 03/12/2020-plan is to continue Ancef at this time. Urine culture is growing E. coli. - Plan Summary Summary: The patient is stable for surgery. Planned open reduction internal fixation tomorrow. The patient will need skilled rehab. She will likely be ready to transfer on Wednesday or Wednesday. - Time Anticipated [facility]charge [facility]position[facility] Anticipated Discharge Timeframe: within 48 hours
[2020-03-12] MEDS: RINGERS SOLUTION,LACTATED 1,000 ML IV PRN (22:44)
[2020-03-13] MEDS: CEFAZOLIN 1 GM/D5W RTU 1 GM/50 ML RTUPB IV SCH ×4 (05:20→21:55)
[2020-03-13] MEDS: HEPARIN SOD (PORCINE) 5,000 UNIT/ML 1 ML VIAL SUBCUT SCH ×3 (05:21→21:58)
[2020-03-13] MEDS: NICOTINE 21 MG/24 HR PATCH.TD24 TD SCH (10:19)
[2020-03-13] MEDS: DOCUSATE SODIUM 100 MG CAPSULE PO SCH ×2 (10:20→17:51)
[2020-03-13] MEDS: FAMOTIDINE 20 MG TABLET PO SCH ×2 (10:20→21:58)
[2020-03-13] MEDS: ASPIRIN 325 MG TABLET, ENT COATED PO SCH (10:20)
[2020-03-13] MEDS: POTASSIUM CHLORIDE 10 MEQ TABLET.ER PO SCH ×2 (10:20→21:58)
--- NOTE | 2020-03-13 13:16 | PDOC PROGRESS REPORT ---
Subjective Progress Note for:: 03/13/20 Subjective:: 64 year old female who reports having had several falls lately. On this instance she stood up from sitting became lightheaded and fell to the floor. She insists that she did not lose consciousness. She does state that she hit the back of her head. At that point she had left hip pain. She is unable to ambulate. On exam she was found to have a left intertrochanteric fracture. Her only medical history is hypertension and hypokalemia. She has had a cervical s pine fracture that required placement of a halo but no fusion. She in fact is resting quite comfortably. Surprisingly she has her left leg crossed over her right leg. Vital signs are stable. Laboratory studies are unremarkable. 03/12/[id number]-old female admitted with left hip impacted femoral neck fracture. Status post open reduction internal fixation of the left impacted femoral neck fracture with a gamma intramedullary nailing was done on 03/09/20.. 03/13/2020-patient waiting for placement. Psych consult is pending. Patient was admitted with left hip fracture status post surgery. Comfortably in the bed watching TV. Reason For Visit: LEFT HIP FRACTURE,HTN,NICOTINE DEPENDENCE,ANXIETY Physical Exam Vital Signs: Temp Pulse Resp BP Pulse Ox 98.0 F 79 17 126/75 H 98 03/13/20 11:37 03/13/20 11:37 03/13/20 11:37 03/13/20 11:37 03/13/20 11:37 Intake & Output 03/12/20 03/13/20 03/14/20 06:59 06:59 06:59 Intake Total 1498 944 476 Output Total 4000 Balance -2502 944 476 Weight 49.8 kg 49.8 kg General appearance: PRESENT: no acute distress, well-developed Head exam: PRESENT: atraumatic Eye exam: PRESENT: PERRLA Mouth exam: PRESENT: moist, tongue midline Teeth exam: PRESENT: poor dentation Neck exam: ABSENT: carotid bruit, JVD, lymphadenopathy, thyromegaly Respiratory exam: PRESENT: decreased breath sounds Cardiovascular exam: PRESENT: RRR. ABSENT: diastolic murmur, rubs, systolic murmur GI/Abdominal exam: PRESENT: normal bowel sounds, soft. ABSENT: distended, guarding, mass, organolmegaly, rebound, tenderness Rectal exam: PRESENT: deferred Extremities exam: PRESENT: full ROM. ABSENT: calf tenderness, clubbing, pedal edema Neurological exam: PRESENT: alert, awake, oriented to person, oriented to place, oriented to time, oriented to situation, CN II-XII grossly intact. ABSENT: motor sensory deficit Psychiatric exam: PRESENT: appropriate affect, normal mood. ABSENT: homicidal ideation, suicidal ideation Results Laboratory Results: 03/12/20 06:09 03/12/20 06:09 03/08/20 11:35 Troponin I < 0.012 Impressions: Carotid Doppler Study 03/08/20 00:00 IMPRESSION: There are findings suggestive of a greater than 69% stenosis at the left internal carotid artery and a 50-69% stenosis or possibly greater at the right internal carotid artery. Pelvis CT 03/08/20 12:46 IMPRESSION: Subcapital fracture of the left femoral neck. Ribs w/Chest X-Ray 03/08/20 12:46 IMPRESSION: Chronic appearing fracture deformities of the posterolateral left 3rd and 4th ribs. Fluoroscopy 03/09/20 00:00 IMPRESSION: IMAGE(S) OBTAINED DURING PROCEDURE. Hip X-Ray 03/11/20 00:00 IMPRESSION: Satisfactory postoperative left hip. Wrist X-Ray 03/11/20 00:00 IMPRESSION: NEGATIVE STUDY OF THE LEFT WRIST. NO RADIOGRAPHIC EVIDENCE OF ACUTE INJURY. Assessment and Plan - Diagnosis (1) Hip fracture, left Qualifiers: Encounter type: initial encounter Fracture type: closed Qualified Code(s): S72.002A - Fracture of unspecified part of neck of left femur, initial encounter for closed fracture Is this a current diagnosis for this admission?: Yes Plan: The patient sustained a left intertrochanteric fracture from a fall. She will have surgical repair tomorrow. She is medically cleared for surgery. We will check preop labs including INR in the morning. She does understand that her CODE STATUS will be full code for her surgery and then she can return to DNR status afterwards. 03/09/2020-ORIF this morning. Anticipate physical therapy tomorrow. 03/10/2020-still with pain. She did get up with physical therapy. Likely transfer to custodial in 48 hours. 03/11/2020-postop day 2 ORIF. Continue to work with physical therapy. The patient did have a fall and I am going to obtain left hip x-rays. 03/12/20-postop day 3 ORIF. Physical therapy is working with the patient. Waiting for placement. Waiting for the psych evaluation today. 2319-postop day 4 ORIF. Physical therapy work with the patient. Waiting for placement. (2) Hypertension Qualifiers: Hypertension type: essential hypertension Qualified Code(s): I10 - Essential (primary) hypertension Is this a current diagnosis for this admission?: No Plan: Blood pressures are slightly elevated. This could be due to pain. I have initiated lisinopril 10 mg daily as well as metoprolol succinate 12.5 mg daily. Will monitor vital signs. 03/09/2020-blood pressure slightly low today but this is likely due to the anesthesia and surgery. She was tachycardic however she was given IV labetalol postoperatively. Her pressures should rebound easily. 03/10/2020-blood pressure is quite low today. Patient is asymptomatic. She is also bradycardic. She has not had any pain medication yet today. We will give several fluid boluses. 03/11/2020-blood pressure is better today. Will slow the IV fluids. 03/12/2020-patient has history of chronic essential hypertension. Blood pressure today is 123/63. Stable. 03/13/2020-blood pressure today is 120/67. Stable. (3) Recurrent falls Is this a current diagnosis for this admission?: Yes Plan: Possibly due to volume depletion. She states that she drinks 2 pots of coffee a day and only has 2 glasses of water. She cannot stand but we will check laying and sitting pulse and pressure tonight and tomorrow. She is getting IV fluids as well. 03/09/2020-we will start physical therapy tomorrow. No orthostasis noted on vital signs. 03/11/2020-unwitnessed fall earlier this morning per the patient. She states she was trying to use the commode. She complains of left wrist pain. No significant pain in the left hip other than expected postop pain. Will obtain x-rays this morning. 03/12/20-patient is waiting for placement. And admitted with left hip fracture status post ORIF. 03/13/2020-patient admitted with left hip fracture status post ORIF. Waiting for placement. (4) Acute cystitis Qualifiers: Hematuria presence: without hematuria Qualified Code(s): N30.00 - Acute cystitis without hematuria Is this a current diagnosis for this admission?: Yes Plan: Urine culture is currently growing gram-negative bacilli. Identification and sensitivities are pending. Continue Ancef for the time being. 03/10/2020-pansensitive E. coli isolated. Continue Ancef. 03/11/2020-complete antibiotics as ordered 03/12/2020-plan is to continue Ancef at this time. Urine culture is growing E. coli. 2320-urine culture is positive for E. coli. Patient has history of ESBL E. coli. plan is to continue Ancef at this time. - Plan Summary Summary: The patient is stable for surgery. Planned open reduction internal fixation tomorrow. The patient will need skilled rehab. She will likely be ready to transfer on Wednesday or Wednesday. - Time Anticipated Discharge Disposition: [facility] Anticipated Discharge Timeframe: within 48 hours
--- NOTE | 2020-03-13 18:27 | PDOC PROGRESS REPORT ---
Subjective Progress Note for:: 03/13/20 Subjective:: I found the patient getting out of bed without assistance. Patient is somewhat confused. She does not know that she is in the hospital. He stated that she had to go to her kitchen and then to the office. I notified the nursing staff who put her back to bed and ensured that the bed alarms were functioning. Reason For Visit: LEFT HIP FRACTURE,HTN,NICOTINE DEPENDENCE,ANXIETY Status post cephalo-medullary nail fixation of impacted femoral neck fracture Physical Exam Vital Signs: Temp Pulse Resp BP Pulse Ox 97.4 F 77 16 151/79 H 99 03/13/20 15:36 03/13/20 15:36 03/13/20 15:36 03/13/20 15:36 03/13/20 15:36 Intake & Output 03/12/20 03/13/20 03/14/20 06:59 06:59 06:59 Intake Total 1498 944 526 Output Total 4000 Balance -2502 944 526 Weight 49.8 kg 49.8 kg Musculoskeletal exam: PRESENT: other - The surgical incision is intact. There is no evidence of infection. There is no discomfort with rotation of the hip. Sensation is normal. Results Laboratory Results: 03/12/20 06:09 03/12/20 06:09 03/08/20 11:35 Troponin I < 0.012 Impressions: Carotid Doppler Study 03/08/20 00:00 IMPRESSION: There are findings suggestive of a greater than 69% stenosis at the left internal carotid artery and a 50-69% stenosis or possibly greater at the right internal carotid artery. Pelvis CT 03/08/20 12:46 IMPRESSION: Subcapital fracture of the left femoral neck. Ribs w/Chest X-Ray 03/08/20 12:46 IMPRESSION: Chronic appearing fracture deformities of the posterolateral left 3rd and 4th ribs. Fluoroscopy 03/09/20 00:00 IMPRESSION: IMAGE(S) OBTAINED DURING PROCEDURE. Hip X-Ray 03/11/20 00:00 IMPRESSION: Satisfactory postoperative left hip. Wrist X-Ray 03/11/20 00:00 IMPRESSION: NEGATIVE STUDY OF THE LEFT WRIST. NO RADIOGRAPHIC EVIDENCE OF ACUTE INJURY. Assessment & Plan - Diagnosis (1) Closed midcervical fracture of left femur Qualifiers: Encounter type: initial encounter Fracture alignment: displaced Qualified Code(s): S72.032A - Displaced midcervical fracture of left femur, initial encounter for closed fracture Is this a current diagnosis for this admission?: Yes (2) Recurrent falls Is this a current diagnosis for this admission?: Yes - Time Critical Time spent with patient: Less than 15 minutes Anticipated Discharge Disposition: [facility] Facility Anticipated Discharge Timeframe: when bed available - Plan Summary Plan Summary: Postoperative day #4 status post intramedullary nail fixation of impacted femoral neck fracture. The patient has a history of recurrent falls. She has already fallen once following surgery while in the hospital. I encountered her at this evening getting out of bed without assistance. She was clearly confused. It is unclear what role confusion may play in her recurrent falls. The patient is on fall precautions and the nurses have ensured that the bed alarms are functional. The patient is clear for discharge from an orthopedic standpoint. She is weightbearing as tolerated On the left hip with assist device. She should follow-up in the office 2 weeks following discharge.
[2020-03-13] MEDS: RINGERS SOLUTION,LACTATED 1,000 ML IV PRN (21:53)
[2020-03-14] MEDS: CEFAZOLIN 1 GM/D5W RTU 1 GM/50 ML RTUPB IV SCH ×2 (04:22→11:20)
[2020-03-14] MEDS: HEPARIN SOD (PORCINE) 5,000 UNIT/ML 1 ML VIAL SUBCUT SCH ×3 (06:42→22:07)
--- NOTE | 2020-03-14 09:19 | PDOC PROGRESS REPORT ---
Subjective Progress Note for:: 03/14/20 Subjective:: 64 year old female who reports having had several falls lately. On this instance she stood up from sitting became lightheaded and fell to the floor. She insists that she did not lose consciousness. She does state that she hit the back of her head. At that point she had left hip pain. She is unable to ambulate. On exam she was found to have a left intertrochanteric fracture. Her only medical history is hypertension and hypokalemia. She has had a cervical s pine fracture that required placement of a halo but no fusion. She in fact is resting quite comfortably. Surprisingly she has her left leg crossed over her right leg. Vital signs are stable. Laboratory studies are unremarkable. 03/12/[id number]-vhdr-old female admitted with left hip impacted femoral neck fracture. Status post open reduction internal fixation of the left impacted femoral neck fracture with a gamma intramedullary nailing was done on 03/09/20.. 03/13/2020-patient waiting for placement. Psych consult is pending. Patient was admitted with left hip fracture status post surgery. Comfortably in the bed watching TV. 03/14/20-patient admitted with history of fall left hip fracture status post surgery. Waiting for placement. Reason For Visit: LEFT HIP FRACTURE,HTN,NICOTINE DEPENDENCE,ANXIETY Physical Exam Vital Signs: Temp Pulse Resp BP Pulse Ox 97.7 F 74 16 183/66 H 96 03/14/20 07:26 03/14/20 07:26 03/14/20 07:26 03/14/20 07:26 03/14/20 07:26 Intake & Output 03/13/20 03/14/20 03/15/20 06:59 06:59 06:59 Intake Total 944 1975 Balance 944 1975 Weight 49.8 kg 49.8 kg General appearance: PRESENT: no acute distress, cooperative Head exam: PRESENT: atraumatic Eye exam: PRESENT: PERRLA Mouth exam: PRESENT: moist, tongue midline Teeth exam: PRESENT: poor dentation Neck exam: ABSENT: carotid bruit, JVD, lymphadenopathy, thyromegaly Respiratory exam: PRESENT: decreased breath sounds Cardiovascular exam: PRESENT: RRR. ABSENT: diastolic murmur, rubs, systolic murmur GI/Abdominal exam: PRESENT: normal bowel sounds, soft. ABSENT: distended, guarding, mass, organolmegaly, rebound, tenderness Rectal exam: PRESENT: deferred Extremities exam: PRESENT: full ROM. ABSENT: calf tenderness, clubbing, pedal edema Neurological exam: PRESENT: alert, awake, oriented to person, oriented to place, oriented to time, oriented to situation, CN II-XII grossly intact. ABSENT: motor sensory deficit Psychiatric exam: PRESENT: appropriate affect, normal mood. ABSENT: homicidal ideation, suicidal ideation Results Laboratory Results: 03/12/20 06:09 03/12/20 06:09 03/08/20 11:35 Troponin I < 0.012 Impressions: Carotid Doppler Study 03/08/20 00:00 IMPRESSION: There are findings suggestive of a greater than 69% stenosis at the left internal carotid artery and a 50-69% stenosis or possibly greater at the right internal carotid artery. Pelvis CT 03/08/20 12:46 IMPRESSION: Subcapital fracture of the left femoral neck. Ribs w/Chest X-Ray 03/08/20 12:46 IMPRESSION: Chronic appearing fracture deformities of the posterolateral left 3rd and 4th ribs. Fluoroscopy 03/09/20 00:00 IMPRESSION: IMAGE(S) OBTAINED DURING PROCEDURE. Hip X-Ray 03/11/20 00:00 IMPRESSION: Satisfactory postoperative left hip. Wrist X-Ray 03/11/20 00:00 IMPRESSION: NEGATIVE STUDY OF THE LEFT WRIST. NO RADIOGRAPHIC EVIDENCE OF ACUTE INJURY. Assessment and Plan - Diagnosis (1) Hip fracture, left Qualifiers: Encounter type: initial encounter Fracture type: closed Qualified Code(s): S72.002A - Fracture of unspecified part of neck of left femur, initial encounter for closed fracture Is this a current diagnosis for this admission?: Yes Plan: The patient sustained a left intertrochanteric fracture from a fall. She will have surgical repair tomorrow. She is medically cleared for surgery. We will check preop labs including INR in the morning. She does understand that her CODE STATUS will be full code for her surgery and then she can return to DNR status afterwards. 03/09/2020-ORIF this morning. Anticipate physical therapy tomorrow. 03/10/2020-still with pain. She did get up with physical therapy. Likely transfer to [facility] in 48 hours. 03/11/2020-postop day 2 ORIF. Continue to work with physical therapy. The patient did have a fall and I am going to obtain left hip x-rays. 03/12/20-postop day 3 ORIF. Physical therapy is working with the patient. Waiting for placement. Waiting for the psych evaluation today. 03/13/20-postop day 4 ORIF. Physical therapy work with the patient. Waiting for placement. 03/14/2020-postop day 5 ORIF. Waiting for placement. (2) Hypertension Qualifiers: Hypertension type: essential hypertension Qualified Code(s): I10 - Essential (primary) hypertension Is this a current diagnosis for this admission?: No Plan: Blood pressures are slightly elevated. This could be due to pain. I have initiated lisinopril 10 mg daily as well as metoprolol succinate 12.5 mg daily. Will monitor vital signs. 03/09/2020-blood pressure slightly low today but this is likely due to the anesthesia and surgery. She was tachycardic however she was given IV labetalol postoperatively. Her pressures should rebound easily. 03/10/2020-blood pressure is quite low today. Patient is asymptomatic. She is also bradycardic. She has not had any pain medication yet today. We will give several fluid boluses. 03/11/2020-blood pressure is better today. Will slow the IV fluids. 03/12/2020-patient has history of chronic essential hypertension. Blood pressure today is 123/63. Stable. 03/13/2020-blood pressure today is 120/67. Stable. 03/14/2020-blood pressure today is 133/57. Stable . plan Is to continue the present management. (3) Recurrent falls Is this a current diagnosis for this admission?: Yes Plan: Possibly due to volume depletion. She states that she drinks 2 pots of coffee a day and only has 2 glasses of water. She cannot stand but we will check laying and sitting pulse and pressure tonight and tomorrow. She is getting IV fluids as well. 03/09/2020-we will start physical therapy tomorrow. No orthostasis noted on vital signs. 03/11/2020-unwitnessed fall earlier this morning per the patient. She states she was trying to use the commode. She complains of left wrist pain. No significant pain in the left hip other than expected postop pain. Will obtain x-rays this morning. 03/12/20-patient is waiting for placement. And admitted with left hip fracture status post ORIF. 03/13/2020-patient admitted with left hip fracture status post ORIF. Waiting for placement. (4) Acute cystitis Qualifiers: Hematuria presence: without hematuria Qualified Code(s): N30.00 - Acute cystitis without hematuria Is this a current diagnosis for this admission?: Yes Plan: Urine culture is currently growing gram-negative bacilli. Identification and sensitivities are pending. Continue Ancef for the time being. 03/10/2020-pansensitive E. coli isolated. Continue Ancef. 03/11/2020-complete antibiotics as ordered 03/12/2020-plan is to continue Ancef at this time. Urine culture is growing E. coli. 03/13/20-urine culture is positive for E. coli. Patient has history of ESBL E. coli. plan is to continue Ancef at this time. 03/14/2020-urine culture is positive for E. coli. Presently on cefazolin completed 5 days of antibiotic therapy. Afebrile. Blood pressure stable. Plan start on levofloxacin 5 mg p.o. daily from today. - Plan Summary Summary: The patient is stable for surgery. Planned open reduction internal fixation tomorrow. The patient will need skilled rehab. She will likely be ready to transfer on Wednesday or Wednesday. - Time Anticipated Discharge Disposition: [facility] Anticipated Discharge Timeframe: within 48 hours
[2020-03-14] MEDS: DOCUSATE SODIUM 100 MG CAPSULE PO SCH ×2 (09:58→17:10)
[2020-03-14] MEDS: ASPIRIN 325 MG TABLET, ENT COATED PO SCH (09:58)
[2020-03-14] MEDS: FAMOTIDINE 20 MG TABLET PO SCH ×2 (09:58→22:08)
[2020-03-14] MEDS: NICOTINE 21 MG/24 HR PATCH.TD24 TD SCH (09:59)
[2020-03-14] MEDS: POTASSIUM CHLORIDE 10 MEQ TABLET.ER PO SCH ×2 (09:59→22:07)
[2020-03-14] MEDS: LEVOFLOXACIN 500 MG TABLET PO SCH (09:59)
--- NOTE | 2020-03-14 12:14 | PDOC CONSULTATION ---
Consultation-[facility] Consultation: Psychiatric Consultation: DOS: 03.11.2020 Time: 1600 Met with Patient at request of attending physician. Patient was observed to be laying her bed and to be sleepy. Advised patient reason for consult after introducing myself. She was not overly cooperative as she was very irritable. I was previously advised she was given Haldol because she continued to attempt to get out of bed and elope despite just having hip surgery. Patient reported being in some mild pain, but mostly stated "I'm done." when asked for clarification, she stated "I'm done with this bad life." She denied homicidal / suicidal ideation, intent or plan and just repeated her statements. As I continued to try and talk with her, she yelled at me to get out, but I continued to talk with her in a soft and calm voice. She seemed to calm and when I asked her if she would rather I return the following day, she stated, " I won't be here tomorrow." Again, when asked for clarification, she stated "I told you, I'm done with this bad life." She again denied suicidal ideation, intent or plan. During the interaction, Patient was observed to lie very still with her eyes closed, even when yelling at this provider. I continued to observe the patient for a few minutes without verbal interaction, and she began talking in a non-sensical manner. I finally interrupted and began to ask mental status type questions, but the Patient was not able to answer the questions with any accuracy with the exception of her name. Review of Patient chart revealed she had hip surgery the previous day secondary to a fall at her home. She has a history of frequent falls and Head CT report dated October 13, 2018 indicates "mild diffuse cerebral atrophy with mild periventricular and deep white matter chronic microvascular changes." Brain volume loss and periventricular and deep white matter involvement, such as seen in this Patient's head CT, clinically correlates with her history of frequent falls and confusion as documented in her chart. Interruption to the periventricular processes is known to cause problems in balance, cognition, and memory. Again, all historically presented and documented in this patient's medical chart. Given this patient's current present during the evaluation and reports received from the nurses and nursing assistants assigned to her care, the patient appears to be experiencing delirium secondary to surgery, more specifically, the anesthesia administered to her during surgery. Research shows that individuals who have neurodegenerative processes identified through objective radiographs, are elderly (>60 yoa), have more than one diagnosed disease process (i.e. hypertension, hypercholesteremia, COPD, diabetes, etc.) are at a higher risk for developing delirium following a surgery where they received anesthesia or "twilight sleep" medications (i.e. versed, valium, fentynl, etc.) to assist with sedation. The term of the delirium for these identified individuals is unique to each but can be medically treated by minimizing the amount of pain medication, antipsychotic, and benzodiazepines prescribed and administered. Individuals experiencing delirium are at high risk for harm to self and others secondary to their significant level of confusion and psychosis, and as such, require close monitoring and sometimes soft restraints to ensure their safety (staying in bed, avoidance of pulling out tubes, strangling self with tubes, etc.) Review of Patient medications at this time appear appropriate as the Haldol and Ativan are both prescribed as needed and as long as neither are used regularly to address the delirium, the Patient's mental status should clear as the anesthesia metabolizes through her body. Review of her labs suggest no significant abnormalities with chemistry profile at this time that would suggest a prolonged period of delirium. At this time, there are no recommendations for medication changes. The attending Nurse FRANDY Robert, was made aware of immediate safety concerns in the room (i.e. patient's personal bag sitting in chair next to bed, food tray with hard cup and utensils next to bed,etc.) and of Patient's statement regarding but denial of suicidal intent, plan, or accessibility. Contacted attending physician of completion of evaluation and physician in agreement with recommendations and disposition. Please contact behavioral health with any questions or concerns at [phone]. Thank you for this kind referral.
[2020-03-14] MEDS: ACETAMINOPHEN 325 MG TABLET PO PRN (23:11)
[2020-03-14] MEDS: RINGERS SOLUTION,LACTATED 1,000 ML IV PRN (23:12)
[2020-03-15] MEDS: HEPARIN SOD (PORCINE) 5,000 UNIT/ML 1 ML VIAL SUBCUT SCH (06:44)
[2020-03-15 08:55] VITALS: BP 141/81
[2020-03-15] MEDS: ASPIRIN 325 MG TABLET, ENT COATED PO SCH (09:25)
[2020-03-15] MEDS: DOCUSATE SODIUM 100 MG CAPSULE PO SCH (09:25)
[2020-03-15] MEDS: LEVOFLOXACIN 500 MG TABLET PO SCH (09:25)
[2020-03-15] MEDS: FAMOTIDINE 20 MG TABLET PO SCH (09:25)
[2020-03-15] MEDS: POTASSIUM CHLORIDE 10 MEQ TABLET.ER PO SCH (09:25)
[2020-03-15] MEDS: NICOTINE 21 MG/24 HR PATCH.TD24 TD SCH (09:25)
--- NOTE | 2020-03-15 12:16 | PDOC TRANSFER SUMMARY ---
Impression - Admit/DC Date/PCP Admission Date/Primary Care Provider: 03/08/20 16:04 Discharge Date: 03/15/20 - Discharge Diagnosis (1) Hip fracture, left Is this a current diagnosis for this admission?: Yes (2) Hypertension Is this a current diagnosis for this admission?: No (3) Recurrent falls Is this a current diagnosis for this admission?: Yes (4) Acute cystitis Is this a current diagnosis for this admission?: Yes - Assessment Summary: The patient is stable for surgery. Planned open reduction internal fixation tomorrow. The patient will need skilled rehab. She will likely be ready to transfer on Wednesday or Wednesday. (1) Hip fracture, left Qualifiers: Encounter type: initial encounter Fracture type: closed Qualified Code(s): S72.002A - Fracture of unspecified part of neck of left femur, initial encounter for closed fracture Is this a current diagnosis for this admission?: Yes Plan: The patient sustained a left intertrochanteric fracture from a fall. She will have surgical repair tomorrow. She is medically cleared for surgery. We will check preop labs including INR in the morning. She does understand that her CODE STATUS will be full code for her surgery and then she can return to DNR status afterwards. 03/09/2020-ORIF this morning. Anticipate physical therapy tomorrow. 03/10/2020-still with pain. She did get up with physical therapy. Likely transfer to long-term in 48 hours. 03/11/2020-postop day 2 ORIF. Continue to work with physical therapy. The patient did have a fall and I am going to obtain left hip x-rays. 03/12/20-postop day 3 ORIF. Physical therapy is working with the patient. Waiting for placement. Waiting for the psych evaluation today. 03/13/20-postop day 4 ORIF. Physical therapy work with the patient. Waiting for placement. 03/14/2020-postop day 5 ORIF. Waiting for placement. 03/15/2020 postop day 6 ORIF. Patient has a bed availability at [facility] she is going there today for short-term rehab. She needs to follow-up with Dr. Celeste next week. (2) Hypertension Qualifiers: Hypertension type: essential hypertension Qualified Code(s): I10 - Essential (primary) hypertension Is this a current diagnosis for this admission?: No Plan: Blood pressures are slightly elevated. This could be due to pain. I have initiated lisinopril 10 mg daily as well as metoprolol succinate 12.5 mg daily. Will monitor vital signs. 03/09/2020-blood pressure slightly low today but this is likely due to the anesthesia and surgery. She was tachycardic however she was given IV labetalol postoperatively. Her pressures should rebound easily. 03/10/2020-blood pressure is quite low today. Patient is asymptomatic. She is also bradycardic. She has not had any pain medication yet today. We will give several fluid boluses. 03/11/2020-blood pressure is better today. Will slow the IV fluids. 03/12/2020-patient has history of chronic essential hypertension. Blood pressure today is 123/63. Stable. 03/13/2020-blood pressure today is 120/67. Stable. 03/14/2020-blood pressure today is 133/57. Stable . plan Is to continue the present management. 03/15/2020-blood pressure today is well controlled. It is 142/66. Patient is advised to continue the medications at the shelter. (3) Recurrent falls Is this a current diagnosis for this admission?: Yes Plan: Possibly due to volume depletion. She states that she drinks 2 pots of coffee a day and only has 2 glasses of water. She cannot stand but we will check laying and sitting pulse and pressure tonight and tomorrow. She is getting IV fluids as well. 03/09/2020-we will start physical therapy tomorrow. No orthostasis noted on vital signs. 03/11/2020-unwitnessed fall earlier this morning per the patient. She states she was trying to use the commode. She complains of left wrist pain. No significant pain in the left hip other than expected postop pain. Will obtain x-rays this morning. 03/12/20-patient is waiting for placement. And admitted with left hip fracture status post ORIF. 03/13/2020-patient admitted with left hip fracture status post ORIF. Waiting for placement. 03/15/2020-patient admitted with history of recurrent falls found to have left hip fracture. Going to the [facility] today. (4) Acute cystitis Qualifiers: Hematuria presence: without hematuria Qualified Code(s): N30.00 - Acute cystitis without hematuria Is this a current diagnosis for this admission?: Yes Plan: Urine culture is currently growing gram-negative bacilli. Identification and sensitivities are pending. Continue Ancef for the time being. 03/10/2020-pansensitive E. coli isolated. Continue Ancef. 03/11/2020-complete antibiotics as ordered 03/12/2020-plan is to continue Ancef at this time. Urine culture is growing E. coli. 03/13/20-urine culture is positive for E. coli. Patient has history of ESBL E. coli. plan is to continue Ancef at this time. 03/14/2020-urine culture is positive for E. coli. Presently on cefazolin completed 5 days of antibiotic therapy. Afebrile. Blood pressure stable. Plan start on levofloxacin 500 mg p.o. daily from today. 2520-positive for E. coli in the urine. On levofloxacin. Prescription was given for levofloxacin 40 mg daily for 5 days. - Plan Summary Summary: The patient is stable for surgery. Planned open reduction internal fixation tomorrow. The patient will need skilled rehab. She will likely be ready to transfer on Wednesday or Wednesday. - Time Anticipated Discharge Disposition: Long-Term Facility Anticipated Discharge Timeframe: within 48 hours - Additional Information Resuscitation Status: Do Not Resuscitate Discharge Diet: Cardiac Discharge Activity: Activity As Tolerated Referrals: [facility] [Outside] NIALL CELESTE MD [ACTIVE STAFF] - 04/02/20 11:45 am (PLEASE ARRIVE AT 1130) Prescriptions: Levofloxacin [Levaquin 500 mg Tablet] 500 mg PO DAILY 5 Days #5 tablet Home Medications: Aspirin [Adult Low Dose Aspirin EC] 81 mg PO DAILY 03/08/20 Levofloxacin [Levaquin 500 mg Tablet] 500 mg PO DAILY 5 Days #5 tablet 03/15/20 History of Present Illiness History of Present Illness: JACOBY HERNANDEZ is a 64 year old female 64 year old female who reports having had several falls lately. On this instance she stood up from sitting became lightheaded and fell to the floor. She insists that she did not lose consciousness. She does state that she hit the back of her head. At that point she had left hip pain. She is unable to ambulate. On exam she was found to have a left intertrochanteric fracture. Her only medical history is hypertension and hypokalemia. She has had a cervical spine fracture that required placement of a halo but no fusion. She in fact is resting quite comfortably. Surprisingly she has her left leg crossed over her right leg. Vital signs are stable. Laboratory studies are unremarkable. Hospital Course Hospital Course: 64 year old female who reports having had several falls lately. On this instance she stood up from sitting became lightheaded and fell to the floor. She insists that she did not lose consciousness. She does state that she hit the back of her head. At that point she had left hip pain. She is unable to ambulate. On exam she was found to have a left intertrochanteric fracture. Her only medical history is hypertension and hypokalemia. She has had a cervical spine fracture that required placement of a halo but no fusion. She in fact is resting quite comfortably. Surprisingly she has her left leg crossed over her right leg. Vital signs are stable. Laboratory studies are unremarkable. 03/[id number]-old female admitted with left hip impacted femoral neck fracture. Status post open reduction internal fixation of the left impacted femoral neck fracture with a gamma intramedullary nailing was done on 03/09/20.. 03/13/2020-patient waiting for placement. Psych consult is pending. Patient was admitted with left hip fracture status post surgery. Comfortably in the bed watching TV. 03/14/20-patient admitted with history of fall left hip fracture status post surgery. Waiting for placement. 03/15/20-patient is accepted to [facility]. Physical Exam Vital Signs: Temp Pulse Resp BP Pulse Ox 97.8 F 77 20 141/81 H 98 03/15/20 08:00 03/15/20 08:00 03/15/20 08:00 03/15/20 08:00 03/15/20 08:00 Intake & Output 03/14/20 03/15/20 03/16/20 06:59 06:59 06:59 Intake Total 1975 1480 Balance 1975 1480 Weight 49.8 kg 49.8 kg Results Laboratory Results: WBC 7.8 10^3/uL (4.0-10.5) 03/12/20 06:09 RBC 3.60 10^6/uL (3.72-5.28) L 03/12/20 06:09 Hgb 11.4 g/dL (12.0-15.5) L 03/12/20 06:09 Hct 33.3 % (36.0-47.0) L 03/12/20 06:09 MCV 92 fl (80-97) 03/12/20 06:09 MCH 31.8 pg (27.0-33.4) 03/12/20 06:09 MCHC 34.4 g/dL (32.0-36.0) 03/12/20 06:09 RDW 13.0 % (11.5-14.0) 03/12/20 06:09 Plt Count 183 10^3/uL (150-450) 03/12/20 06:09 Lymph % (Auto) 15.1 % (13-45) 03/12/20 06:09 [place] % (Auto) 9.0 % (3-13) 03/12/20 06:09 Eos % (Auto) 5.5 % (0-6) 03/12/20 06:09 Baso % (Auto) 0.8 % (0-2) 03/12/20 06:09 Absolute Neuts (auto) 5.4 10^3/uL (1.7-8.2) 03/12/20 06:09 Absolute Lymphs (auto) 1.2 10^3/uL (0.5-4.7) 03/12/20 06:09 Absolute Monos (auto) 0.7 10^3/uL (0.1-1.4) 03/12/20 06:09 Absolute Eos (auto) 0.4 10^3/uL (0.0-0.6) 03/12/20 06:09 Absolute Basos (auto) 0.1 10^3/uL (0.0-0.2) 03/12/20 06:09 Seg Neutrophils % 69.6 % (42-78) 03/12/20 06:09 PT 14.5 SEC (11.4-15.4) 03/09/20 06:06 INR 1.11 03/09/20 06:06 Sodium 139.3 mmol/L (137-145) 03/12/20 06:09 Potassium 3.8 mmol/L (3.6-5.0) 03/12/20 06:09 Chloride 106 mmol/L (98-107) 03/12/20 06:09 Carbon Dioxide 27 mmol/L (22-30) 03/12/20 06:09 Anion Gap 6 (5-19) 03/12/20 06:09 BUN 7 mg/dL (7-20) 03/12/20 06:09 Creatinine 0.39 mg/dL (0.52-1.25) L 03/12/20 06:09 Est GFR ( Amer) > 60 (>60) 03/12/20 06:09 Est GFR (MDRD) Non-Af > 60 (>60) 03/12/20 06:09 Glucose 92 mg/dL (75-110) 03/12/20 06:09 Calcium 9.2 mg/dL (8.4-10.2) 03/12/20 06:09 Magnesium 1.8 mg/dL (1.6-2.3) 03/12/20 06:09 Total Bilirubin 1.4 mg/dL (0.2-1.3) H 03/08/20 11:35 Direct Bilirubin 0.2 mg/dL (0.0-0.4) 03/08/20 11:35 Neonat Total Bilirubin Not Reportable 03/08/20 11:35 Neonat Direct Bilirubin Not Reportable 03/08/20 11:35 Neonat Indirect Bili Not Reportable 03/08/20 11:35 AST 25 U/L (14-36) 03/08/20 11:35 ALT 12 U/L (<35) 03/08/20 11:35 Alkaline Phosphatase 84 U/L (38-126) 03/08/20 11:35 Troponin I < 0.012 ng/mL 03/08/20 11:35 Total Protein 7.5 g/dL (6.3-8.2) 03/08/20 11:35 Albumin 4.4 g/dL (3.5-5.0) 03/08/20 11:35 Urine Color YELLOW 03/08/20 14:30 Urine Appearance SLIGHTLY-CLOUDY 03/08/20 14:30 Urine pH 8.0 (5.0-9.0) 03/08/20 14:30 Ur Specific [place] 1.014 03/08/20 14:30 Urine Protein 30 mg/dL (NEGATIVE) H 03/08/20 14:30 Urine Glucose (UA) NEGATIVE mg/dL (NEGATIVE) 03/08/20 14:30 Urine Ketones NEGATIVE mg/dL (NEGATIVE) 03/08/20 14:30 Urine Blood NEGATIVE (NEGATIVE) 03/08/20 14:30 Urine Nitrite POSITIVE (NEGATIVE) H 03/08/20 14:30 Urine Bilirubin NEGATIVE (NEGATIVE) 03/08/20 14:30 Urine Urobilinogen 2.0 mg/dL (<2.0) H 03/08/20 14:30 Ur Leukocyte Esterase NEGATIVE (NEGATIVE) 03/08/20 14:30 Urine WBC (Auto) 4 /HPF 03/08/20 14:30 Urine RBC (Auto) 1 /HPF 03/08/20 14:30 Squamous Epi Cells Auto <1 /HPF 03/08/20 14:30 Urine Mucus (Auto) RARE /LPF 03/08/20 14:30 Urine Ascorbic Acid NEGATIVE (NEGATIVE) 03/08/20 14:30 SARS-CoV-2 (PCR) NEGATIVE (NEGATIVE) 03/08/20 17:30 03/08/20 11:35 Troponin I < 0.012 Impressions: Carotid Doppler Study 03/08/20 00:00 IMPRESSION: There are findings suggestive of a greater than 69% stenosis at the left internal carotid artery and a 50-69% stenosis or possibly greater at the right internal carotid artery. Pelvis CT 03/08/20 12:46 IMPRESSION: Subcapital fracture of the left femoral neck. Ribs w/Chest X-Ray 03/08/20 12:46 IMPRESSION: Chronic appearing fracture deformities of the posterolateral left 3rd and 4th ribs. Hip X-Ray 03/08/20 16:37 IMPRESSION: Impacted subcapital fracture of the left femoral neck. Fluoroscopy 03/09/20 00:00 IMPRESSION: IMAGE(S) OBTAINED DURING PROCEDURE. Hip X-Ray 03/09/20 00:00 IMPRESSION: IMAGE(S) OBTAINED DURING PROCEDURE. Hip X-Ray 03/11/20 00:00 IMPRESSION: Satisfactory postoperative left hip. Wrist X-Ray 03/11/20 00:00 IMPRESSION: NEGATIVE STUDY OF THE LEFT WRIST. NO RADIOGRAPHIC EVIDENCE OF ACUTE INJURY. Stroke Is this a Stroke Patient?: No Acute Heart Failure Is this a Heart Failure Patient?: No
== END 2020-03-15 14:39 | DRG 481 ==
LOC: ER 11:08 → EH 16:04 → 4S 18:50
PROVIDERS: ADMIT Hospitalist; ATTEND Internal Medicine
PROC: 0QS706Z Reposition Left Upper Femur with Intramedullary Internal Fixation Device, Open Approach (ICD-10-PCS; principal; 2020-03-09 08:30)
DX: S72.032A Displaced midcervical fracture of left femur, initial encounter for closed fracture (principal); N39.0 Urinary tract infection, site not specified; F19.921 Other psychoactive substance use, unspecified with intoxication with delirium; I10 Essential (primary) hypertension; E87.6 Hypokalemia; M25.532 Pain in left wrist; F41.9 Anxiety disorder, unspecified; F17.210 Nicotine dependence, cigarettes, uncomplicated; B96.20 Unspecified Escherichia coli [E. coli] as the cause of diseases classified elsewhere; T88.59XA Other complications of anesthesia, initial encounter; W18.39XA Other fall on same level, initial encounter; Y93.89 Activity, other specified; Y92.018 Other place in single-family (private) house as the place of occurrence of the external cause; Z20.828 Contact with and (suspected) exposure to other viral communicable diseases; Z60.2 Problems related to living alone; Z66 Do not resuscitate; Z75.1 Person awaiting admission to adequate facility elsewhere
CPT/HCPCS: 01230; 36415; 51702; 72192; 80048; 80053; 81001; 83735; 84484; 85025; 85027; 85610; 87086; 87088; 87186; 87635; 93005; 93010; 93880; 94799; 96374; 99285; C1713; C9803; J0690; J1630; J1644; J2250; J2270; J2405; J2704; J3010; J3480; J3490; J7060; J7120